=== PATIENT | female | born 1985 | race Caucasian/White ===

== ENCOUNTER 2022-04-08 12:32 | Observation (INO) | payer MEDICAID, SELFPAY ==
[2022-04-08 12:42] VITALS: BP 121/81; PULSE 68; RESP 14; TEMP 37; O2SAT 98
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
[2022-04-08 12:51] VITALS: BP 122/81; PULSE 67; PULSE 70; RESP 13; O2SAT 98
[2022-04-08 13:01] VITALS: BP 111/71; PULSE 58; PULSE 59; RESP 11; O2SAT 96
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
[2022-04-08] MEDS: Normal Saline 1,000 ML 1000 ML IV (13:21)
[2022-04-08 13:35] LABS: Abs Immature Grans 0.02 10^3/uL (0.0-0.06); Absolute Basophil Count 0.04 10^3/uL (0.0-0.2); Absolute Eosinophil Count 0.06 10^3/uL (0.0-0.7); Absolute Lymphocyte Count 1.37 10^3/uL (1.2-3.4); Absolute Monocyte Count 0.57 10^3/uL (0.1-0.8); Absolute Neutrophil Count 7.38 10^3/uL (1.2-6.7); Basophils % 0.4; Eosinophils % 0.6; HCT 41.6 % (36.0-46.0); HGB 13.9 g/dL (11.2-15.7); Immature Grans % 0.2; Lymphocytes % 14.5; MCH 31.1 pg (27.0-33.0); MCHC 33.4 % (32.0-36.0); MCV 93 fL (80-95); Neutrophils % 78.3; Platelet Count 269 10^3/uL (130-400); RBC 4.47 10^6/uL (3.93-5.22); RDW 12.8 % (11.7-14.6); RDW-SD 43.8 fL; WBC 9.44 10^3/uL (4.4-10.8)
[2022-04-08] MEDS: Omnipaque 350 MG/ML 100 ML BTL IV (13:42)
[2022-04-08 13:45] LABS: ALT 20 U/L (14-59); AST 19 U/L (15-37); Albumin 4.2 g/dL (3.4-5.0); Alkaline Phosphatase 65 U/L (46-116); Anion Gap 10.6 mmol/L (3-11); BUN 11 mg/dL (7-18); Bilirubin, Total 0.4 mg/dL (0.2-1.0); CO2 29.4 mmol/L (21.0-32.0); CREATININE 0.8 mg/dL (0.55-1.02); Calcium 9.4 mg/dL (8.5-10.1); Chloride 102 mmol/L (98-107); Glucose 102 mg/dL (74-106); Potassium 3.6 mmol/L (3.5-5.1); Sodium 142 mmol/L (136-145); Total Protein 7.8 g/dL (6.4-8.2)
[2022-04-08 13:52] LABS: Bilirubin Negative (Negative); Blood Trace-lysed (Negative); Clarity Clear (Clear); Glucose Negative (Negative); Ketones Negative (Negative); Leukocyte Esterase Negative (Negative); Nitrite Negative (Negative); Urobilinogen 0.2 EU/dL (Up TO 0.2); pH 5.5 (5-8)
[2022-04-08 14:01] LABS: Lipase 94 U/L (73-393)
[2022-04-08 14:07] LABS: WBC 0-2 HPF (0-5)
[2022-04-08 14:08] LABS: Bacteria Rare HPF (Negative); C & S Indicated? No; Casts Negative LPF (Negative); Crystals Negative HPF (Negative); Epithelial Cells Few HPF (Negative); Mucus Negative (Negative)
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
[2022-04-08 14:31] VITALS: BP 122/83; PULSE 55; PULSE 60; RESP 17; O2SAT 100
[2022-04-08] MEDS: Lidocaine/Epinephri/Tetracaine Topical Gel 3 ML TP (15:06)
[2022-04-08 15:25] LABS: Source Nasal/Nares
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
--- OUTSIDE RECORDS SUMMARY | 2022-04-08 15:59 | XMS_ITS | Encounter Summary ---
:1985 Author Organization [facility] Address [address] [place] [address] Care Team Providers Name Role Phone Jaime Guadarrama Primary Care Provider Reason for Visit (Routine/Next Available) - Receiving Office to Obtain Authorization Specialty Diagnoses / Procedures Referred By Contact Refer red To Contact Procedures Imaging, External CT OUTSIDE IMAGES BODY CT OUTSIDE IMAGES BODY Referral ID Status Reason Start Expiration Visits Visits Date Date Requested Authorized [id number] Receiving Office 04/08/2022 1 1 to Obtain Authorization Encounter Details Date Type Department Care Team Description 04/08/2022 Hospital Encounter [facility] Secondary Arrived [place] Social History Tobacco Use Types Packs/Day Years Used Date Never Smoker Smokeless Tobacco: Never Used Alcohol Use Standard Drinks/Week Comments Yes 3 (1 standard drink = 0.6 oz pure alcoho l) Sex Assigned at Date Recorded Not on file documented as of this encounter Functional Status Functional Status Response Date of Assessment Because of a physical, mental, or emotional condition, No 05/10/2016 does this person have difficulty doing errands alone such as visiting a doctor's office or shopping? Cognitive Status Response Date of Assessment Because of a physical, mental, or emotional condition, No 05/10/2016 does this person have serious difficulty concentrating, remembering, or making decisions? documented as of this encounter Plan of Treatment Not on filedocumented as of this encounter Procedures Procedure Name Priority Date/Time Associated Diagnosis Comme nts CT OUTSIDE IMAGES Routine 04/08/2022 14:59 Result s for this BODY EDT procedure are i n the results section. documented in this encounter Results CT OUTSIDE IMAGES BODY (04/08/2022 14:59 EDT) Specimen Narrative 04/08/2022 14:59 EDT This is a non-reportable exam. documented in this encounter Visit Diagnoses Not on filedocumented in this encounter Care Teams Route Returner Relationship Specialty Start Date End Date Jaime Guadarrama PA PCP - General 11/06/15 [address] [place] [address] documented as of this encounter
--- OUTSIDE RECORDS SUMMARY | 2022-04-08 15:59 | XMS_ITS | Encounter Summary ---
:1985 Author Organization [facility] Address [address] [place] [address] Care Team Providers Name Role Phone Jaime Guadarrama Primary Care Provider Encounter Details Date Type Department Care Team Description 11/27/2021 Lab Requisition [facility] Zhanna Lundberg, Encounter for Pathology & CNM screening for Laboratory Medicine [address] infect ons with a - [address] predominantly sexual [address] [facility] [address] [place] [phone] Social History Tobacco Use Types Packs/Day Years [...] making decisions? documented as of this encounter Discharge Disposition Disposition Code Departure Means Destination Home or Self Care documented in this encounter Plan of Treatment Not on filedocumented as of this encounter Procedures Procedure Name Priority Date/Time Associated Diagnosis Comme nts CHLAMYDIA/N. Routine 11/27/2021 18:12 Encounter for Results fo r this GONORRHOEAE EST screening for procedure are in AMPLIFIED RNA infections with a the resul ts predominantly sexual section . mode of transmission documented in this encounter Results CHLAMYDIA/N. GONORRHOEAE AMPLIFIED RNA (11/27/2021 18:12 EST) Pathologist Sig nature Gonococcus Result Negative Negative [facility] Chlamydia Result Negative Negative [facility] Specimen Swab - Entire vagina (body structure) Performing Organization Address City/State/ZIP Code Phon e Number [facility] [address] [place] [address] SERVICES documented in this encounter Visit Diagnoses Diagnosis Encounter for screening for infections w ith a predominantly sexual mode of transmission documented in this encounter Care Teams Key Entry Operator Relationship Specialty Start Date End Date Jaime Guadarrama PA PCP - General 11/06/15 [address] [place], [place] [id number] documented as of this encounter
--- OUTSIDE RECORDS SUMMARY | 2022-04-08 16:00 | XMS_ITS | Encounter Summary ---
:1985 Author Organization [facility] Address [address] [place] [address] Care Team Providers Name Role Phone Jaime Guadarrama Primary Care Provider Encounter Details Date Type Department Care Team Description 12/08/2018 Hospital Encounter [facility]ie maya, [place], [place] [address] [address] [address] ,[place] [address] [address] [place] [address] Social History Tobacco Use Types Packs/Day Years [...] decisions? documented as of this encounter Discharge Diagnoses Diagnosis Z00.00 Encounter for general adult medic al examination without abnormal findings-Z00.00[ICD-10-CM] Z77.120 Contact with and (suspected) exp osure to mold (toxic)-Z77.120[ICD-10-CM] R53.83 Other fatigue-R53.83[ICD-10-CM] documented in this encounter Medications at Time of Discharge Medication Sig Dispensed Refills Start Date End Date Multivitamins with Take 1 Tab by mouth 0 Minerals Tab daily. Reported on 09/19/2016 norgestimate-ethinyl Take 1 Tab by mouth 0 estradiol (ORTHO daily. TRI-CYCLEN, TRI-SPRINTEC) 0.18/0.215/0.25 mg-35 mcg (28) tablet albendazole (ALBENZA) 200 Take 2 Tabs by mouth 4 Tab 0 11/11/2015 08/30/2019 mg tablet once for 1 dose. Repeat in 2 weeks documented as of this encounter Discharge Disposition Disposition Code Departure Means Destination Home or Self Senior Care documented in this encounter Plan of Treatment Not on filedocumented as of this encounter Procedures Procedure Name Priority Date/Time Associated Comments Diagnosis VITAMIN D (25,[place]) Routine 12/08/2018 10:56 Result s for this EDT procedure are i n the results section. IBC Routine 12/08/2018 10:56 Results for this EDT procedure are i n the results section. SED RATE Routine 12/08/2018 10:56 Results for this EDT procedure are i n the results section. COMPLETE BLOOD COUNT Routine 12/08/2018 10:56 Res ults for this AND DIFFERENTIAL EDT procedure a re in the results section. HIGH SENSITIVITY Routine 12/08/2018 10:56 Results for this C-REACTIVE PROTEIN EDT procedure are in (CARDIOVASCULAR the results DISEASE) section. T3 FREE Routine 12/08/2018 10:56 Results for this EDT procedure are i n the results section. TSH Routine 12/08/2018 10:56 Results for this EDT procedure are i n the results section. T4 FREE Routine 12/08/2018 10:56 Results for this EDT procedure are i n the results section. IRON Routine 12/08/2018 10:56 Results for this EDT procedure are i n the results section. FOLATE Routine 12/08/2018 10:56 Results for this EDT procedure are i n the results section. FERRITIN Routine 12/08/2018 10:56 Results for this EDT procedure are i n the results section. VITAMIN B12 Routine 12/08/2018 10:56 Results for this EDT procedure are i n the results section. COMPREHENSIVE Routine 12/08/2018 10:56 Results fo r this METABOLIC PANEL (CMP) EDT proced ure are in the results section. documented in this encounter Results (ABNORMAL) VITAMIN D (25,OH) (12/08/2018 10:56 EDT) 25OH Vitamin D 19.0 (L) 30 - 100 [facility] Comment: ng/ml [facility] Reference Range: SERVICES Deficient = <10 ng/ml Insufficient = 10-30 ng/ml Sufficient = 30-100 ng/ml Toxic = >100 ng/ml Specimen Blood Performing Organization Address City/[facility]/ZIP Code Phon e Number [facility] [address] [place] [address] SERVICES TSH (12/08/2018 10:56 EDT) TSH 1.84 0.47 - 4.68 [facility] Comment: uIU/ml LABORATORY SERVICES The results of this assay can be falsely lowered due to the consumption of Biotin. Specimen Blood Performing Organization Address [facility]/ZIP Code Phon e Number [facility] [address] [place] [address] SERVICES SED. RATE:WESTERGREN (12/08/2018 10:56 EDT) Pathologist Sig nature Sed. Rate Westergren 13 0 - 20 mm/hr [facility] SERVICES Specimen Blood Performing Organization Address City/[facility]/ZIP Code Phon e Number [facility] [address] [place] [address] SERVICES IRON (12/08/2018 10:56 EDT) Pathologist Sig nature Iron 118 37 - 170 ug/dl [facility] Specimen Blood Performing Organization Address [facility]/ZIP [facility] Phon e Number [facility] [address] [place] [address] SERVICES IBC (12/08/2018 10:56 EDT) Pathologist Sig nature TIBC 421 265 - 497 ug/dl [facility] T[facility] SERVICES Specimen Blood Performing Organization Address City/[facility]/ZIP Code Phon e Number [facility] [address] [place] [address] SERVICES (ABNORMAL) T4 FREE (12/08/2018 10:56 EDT) Pathologist Sig nature T4, Free 0.7 (L) 0.8 - 2.2 ng/dl [facility] T[facility] SERVICES Specimen Blood Performing Organization Address City/[facility]/ZIP Code Phon e Number [facility] [address] [place] [address] SERVICES T3 FREE (12/08/2018 10:56 EDT) Pathologist Sig nature T3, Free 3.1 2.8 - 5.3 pg/ml [facility] Specimen Blood Performing Organization Address City/[facility]/ZIP Code Phon e Number [facility] [address] [place] [address] SERVICES FOLATE (12/08/2018 10:56 EDT) Pathologist Sig nature Folate 17.1 ng/ml [facility] Comment: LABORATORY SERVICES Deficient: ??Less than 3.4 ng/mL Indeterminate: ??3.4-5.4 ng/mL Normal: ??Greater than 5.4 ng/mL The results of this assay can be falsely elevated due to the consumption of Biotin. Specimen Blood Performing Organization Address City/[facility]/ZIP Code Phon e Number [facility] [address] [place] [address] SERVICES (ABNORMAL) FERRITIN (12/08/2018 10:56 EDT) Pathologist Sig nature Ferritin 9 (L) 10 - 291 ng/ml [facility] Specimen Blood Performing Organization Address City/[facility]/ZIP Code Phon e Number [facility] [address] [place] [address] SERVICES HIGH SENSITIVITY C-REACTIVE PROTEIN (CARDIOVASCULAR DISEASE) (12/08/2018 10:56 EDT) High Sensitivity 3.39 mg/L [facility] CRP Comment: LABORATORY SERVICES Low Risk: <1.0 mg/L Average Risk: 1.0-3.0 mg/L High Risk: >3.0 mg/L Indeterminate*: >10.0 mg/L *May be an indication of another source of inflammation or infection [employer] 5600 Methodology in use 01/29/2018 Specimen Blood Performing Organization Address City/[facility]/ZIP Code Phon e Number [facility] [address] [place] [address] SERVICES COMPREHENSIVE METABOLIC PANEL (CMP) (12/08/2018 10:56 EDT) Potassium 4.7 3.5 - 5.0 [facility] mEq/L [facility] Sodium 136 136 - 145 [facility] mEq/L [facility] Chloride 98 96 - 110 [facility] mEq/L [facility] CO2 31 22 - 32 mEq/L [facility] SERVICES Total Alkaline 67 38 - 126 U/L [facility] Phosphatase [facility] Bilirubin, Total <0.5 <1.4 mg/dl [facility] SERVICES AST 27 15 - 46 U/L [facility] SERVICES ALT 26 <53 U/L [facility] SERVICES Albumin 4.2 3.4 - 4.9 [facility] g/dl [facility] Total Protein 6.9 6.3 - 8.2 [facility] g/dl [facility] Creatinine 0.83 0.52 - 1.04 [facility] mg/dl [facility] GFR, Calculated 94 >60 [facility] Comment: ml/min/1.73m2 [facility] eGFR calculated using CKD-EPI equation for SERVICES non Americans. Multiply eGFR by 1.16 for Americans. BUN 10 10 - 26 mg/dl [facility] SERVICES Calcium 9.6 8.5 - 10.5 [facility] mg/dl [facility] Calculated Calcium 9.4 8.5 - 10.5 [facility] mg/dl [facility] Glucose, Serum 83 70 - 100 [facility] mg/dl [facility] Fasting? YES [facility] Specimen Blood Performing Organization Address City/State/ZIP Code Phon e Number [facility] [address] [place] [address] SERVICES COMPLETE BLOOD COUNT AND DIFFERENTIAL (12/08/2018 10:56 EDT) Pathologist Sig nature WBC 7.89 4.0 - 12.4 [facility] LABORATORY SERVICES RBC 4.22 3.86 - 5.04 [facility] M/[facility] LABORATORY SERVICES Hemoglobin 12.3 11.6 - 15.2 [facility] gm/dl LABORATORY SERVICES HCT 36.7 34.9 - 44.4 % [facility] SERVICES MCV 87 81 - 98 fl [facility] SERVICES MCH 29.1 26.7 - 33.3 pg [facility] SERVICES MCHC 33.5 32.1 - 35.9 [facility] gm/dl LABORATORY SERVICES RDW-CV 13.2 <14.7 % [facility] SERVICES RDW-SD 41.7 <50.4 fl [facility] SERVICES PLT 263 141 - 377 /[facility] LABORATORY SERVICES MPV 9.8 9.5 - 12.7 fl [facility] SERVICES Neutrophils 67.9 % [facility] Lymphocytes 21.2 % [facility] Monocytes 9.1 % [facility] SERVICES Eosinophils 0.9 % [facility] Basophils 0.4 % [facility] SERVICES Immature Grans 0.5 % [facility] SERVICES ABS Neutrophils 5.36 2.20 - 8.85 [facility] K/[facility] LABORATORY SERVICES ABS Lymphs 1.67 1.09 - 3.30 [facility] LABORATORY SERVICES ABS Monocytes 0.72 0.1 - 0.8 K/[facility] LABORATORY SERVICES ABS Eosinophils 0.07 0.03 - 0.61 [facility] ABS Basophils 0.03 0.01 - 0.11 [facility] LABORATORY SERVICES ABS Immature Grans 0.04 0 - 0.06 /[facility] LABORATORY SERVICES Type of Diff: Automated [facility] SERVICES Specimen Blood Performing Organization Address City/[facility]/ZIP Code Phon e Number [facility] [address] [place] [address] SERVICES VITAMIN B12 (12/08/2018 10:56 EDT) Pathologist Sig nature Vitamin B-12 340 211 - 911 pg/ml [facility] SERVICES Specimen Blood Performing Organization Address City/[facility] Phon e Number [facility] [address] [place] [address] SERVICES documented in this encounter Visit Diagnoses Not on filedocumented in this encounter Care Teams Industrial Machine System Technician Relationship Specialty Start Date End Date Jaime Guadarrama PA PCP - General 11/06/15 [address] [place] [address] documented as of this encounter
--- OUTSIDE RECORDS SUMMARY | 2022-04-08 16:00 | XMS_ITS | Encounter Summary ---
:1985 Author Organization [facility] Address [address] [place] [address] Care Team Providers Name Role Phone Jaime Guadarrama Primary Care Provider Reason for Visit Reason Comments Eye Problem Visual field defect. Patient here today for MRI review. 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 No eye p ain, floaters. Frequent flashing for a couple of days. Encounter Details Date Type Department Care Team Description 12/05/2015 Office Visit [facility] Will Hall MD Ophthalmology - [address], [address], [address] [place], [place] [address] [place] [address] [phone] (Wo rk) Social History Tobacco Use Types Packs/Day Years Used Date Never Smoker Smokeless Tobacco: Never Used Alcohol Use Standard Drinks/Week Comments Yes 3 (1 standard drink = 0.6 oz pure alcoho l) Sex Assigned at Date Recorded Not on file documented as of this encounter Functional Status Functional Status Response Date of Assessment Because of a physical, mental, or emotional condition, No 11/16/2015 does this person have difficulty doing errands alone such as visiting a doctor's office or shopping? Cognitive Status Response Date of Assessment Because of a physical, mental, or emotional condition, No 11/16/2015 does this person have serious difficulty concentrating, remembering, or making decisions? documented as of this encounter Discharge Diagnoses Diagnosis H53.40 Unspecified visual field defects- H53.40[ICD-10-CM] H46.9 Unspecified optic neuritis-H46.9[I CD-10-CM] H53.19 Other subjective visual disturban deisy-H53.19[ICD-10-CM] documented in this encounter Progress Notes Will Hall MD - 12/05/2015 0811 EST . Base Eye Exam Visual Acuity (Snellen - Linear) Right Left Dist cc 20/20 20/20 Correction: Glasses Neuro/Psych Oriented x3: Yes Mood/Affect: Normal ROS, Medications, Allergies reviewed. This note has been dictated and scanned. IMP: Rylie was seen today for eye problem. Diagnoses and all orders for this visit: Visual field defect Orders: - Visual Evoked Potential; Standing - Electroretinogram (ERG); Standing Optic neuritis Photopsia Orders: - Visual Evoked Potential; Standing - Electroretinogram (ERG); Standing MRI reivew: Brain and Orbits Impression: Normal orbits. MRI Brain: 1. No intracranial abnormality identified. 2. Moderate left maxillary sinus mucosal thickening PLAN: See dictated note and notes in scans/media also. See shadow chart for hard copies of VF's and OCT's. I am scribing for Will Hall MD while he is personally performing the service. PRANEETH Kinney 12/05/2015 8:39 documented in this encounter Consult Notes Will Hall MD - 12/05/2015 1028 EST [facility] OPHTHAL[facility]OLOGY CONS[facility]ATION - 12/05/2015 [place] [address] Guadarrama: Our mutual patient returns today for review of her MRI scan. As you are well aware, she has had somephotopsias in the left eye and decreased vision. She has been investigated rather thoroughly with laboratory studies. Some of those were marginally borderline, but I do not think they explain her problem. Just for the record, the sedimentation rate was 22 and the C-reactive protein was just slightly elevated as well at 14.9 with normal being 0 to 10. Finally, the ARABELLA titer was 40. I do not believe any of these laboratory studies explain the photopsias that she is having currently. She had an MRI of the brain and orbits with MS protocol. There were no enhancing lesions or inflammation of the optic nerve or the brain identified. Again, there was an incidental finding of some sinusitis on the left. Moderate left maxillary sinus mucosal thickening. I have recommended that we go ahead and carry out an ERG and a visual evoked potential test. That will be scheduled and we will do that in the reasonably near future, depending on the electrodiagnosticlabs schedule. It is interesting that the patient's vision with her glasses today was actually quite good at 20/20 in each eye. I will see her once all these studies have been completed. Dr Gillespie, I will discuss the patient with you. One of my questions is does she have a big blind spot syndrome or MEWS without white dots. Hopefully, the electrodiagnostic tests will help us sort that out. Fortunately, things have not progressed in any way and her vision is excellent today. Sincerely, Will Hall MD 08 39 AM - Will Hall MD mn Dictation ID: [id number] cc: Jaime DUENAS, [place] [address] Humphrey Donahue MD,PHD, [facility] [address] [place] [address] Kamari Gillespie MD, [facility] - Ophthalmology [address] [place] [address] The Patient documented in this encounter Plan of Treatment Not on filedocumented as of this encounter Visit Diagnoses Diagnosis Visual field defect - Primary Visual field defect, unspecified Optic neuritis Optic neuritis, unspecified Photopsia Other visual distortions and entoptic ph enomena documented in this encounter Eye Exam Visual Acuity (Snellen - Linear) Right eye Left eye Dist cc 20/20 20/20 Correction: Glasses Neuro/Psych Oriented x3: Yes Mood/Affect: Normal Care Teams Die Repair Machinist Relationship Specialty Start Date End Date Jaime Guadarrama PA PCP - General 11/06/15 [address] [place] [address] documented as of this encounter
--- OUTSIDE RECORDS SUMMARY | 2022-04-08 16:00 | XMS_ITS | Encounter Summary ---
:1985 Author Organization [facility] Address [address] [place] [address] Care Team Providers Name Role Phone Jaime Guadarrama Primary Care Provider Reason for Visit Reason Comments Eye Problem left eye 3 days--constant gl ow in middle of eye , vision fine-- Ultra sound saw hem--Pain no-- Sta rted saturday am and more constant-- Floaters no and did a couple of Flash es -- Not DM Encounter Details Date Type Department Care Team Description 11/07/2015 Office Visit [facility] Oniel Peralta Ophthalmology - Avila Clifton MD [id number] [place] [address], [place] [address] (Wo rk) Social History Tobacco Use [...] a physical, mental, or emotional condition, No 11/07/2015 does this person have difficulty doing errands alone such as visiting a doctor's office or shopping? Cognitive Status Response Date of Assessment Because of a physical, mental, or emotional condition, No 11/07/2015 does this person have serious difficulty concentrating, remembering, or making decisions? documented as of this encounter Discharge Diagnoses Diagnosis H53.19 Other subjective visual disturban deisy-H53.19[ICD-10-CM] documented in this encounter Discharge Disposition Disposition Code Departure Means Destination Auto Discharge documented in this encounter Progress Notes Oniel Peralta MD - 11/07/2015 0851 EST Department of Ophthalmology / Cataract/Cornea Office Visit Note Referring physician: Sherley Stoll Local Eye Patient Coordinator Front Desk: Family Physician (PCP): Jaime Guadarrama Other Physician: History of Present Illness: This HPI section must be documented by the physician (or scribe upon the dictation of the physician). It should not be documented independently by the plasma processing technician/scribe in the absence of the physician. Patient presents with ??? Eye Problem C/o new-onset photopsia left eye X 3 days, which was evaluated in the emergency department yesterday. She notes a constant glow centrally with her left eye, with no floaters and normal vision.Started saturday am and more constant subsequently. Ultrasound done in the ED reported was seen to show a possible vitreous hemorrhage. No pain. Not diabetic, no head trauma. She is not a high myope. She has had normal dilated eye exams previously - last exam about two years ago. She had mild headache Saturday, which she attributed to an effect of having a glass of wine the previous day. Pain: 0 / 10 Both Eyes Flashes: Yes Floaters: No Controls: Diabetes :No Hypertension:No Tobacco:No EXAMINATION: Base Eye Exam Visual Acuity (Snellen - Linear) Right Left Dist sc 20/40 20/30 Dist ph sc 20/20-2 20/20 Near sc J1+ J1+ Glasses at home Tonometry (Applanation, 8:29) Right Left Pressure 13 17 Pupils Dark Light React APD Right 5 3 Brisk None Left 5 3 Brisk None Visual Deshpande Right Left Result Full Full Normal, SP Extraocular Movement Right Left Result Full, Ortho Full, Ortho Normal, SP Neuro/Psych Oriented x3: Yes Mood/Affect: Normal Dilation Both eyes: 1.0% Mydriacyl, 2.5% Phenylephrine @ 8:33 Slit Lamp and Fundus Exam Slit Lamp Exam Right Left Lids/Lashes Normal Normal Conjunctiva/Sclera White and quiet White and quiet Cornea Clear Clear Anterior Chamber Deep and quiet Deep and quiet Iris normal normal Lens Clear Clear Vitreous Normal Normal Fundus Exam Right Left Disc flat ONH, normal coloration, discrete borders with spontaneous venous pulsations flat ONH, normal coloration, discrete borders with spontaneous venous pulsations C/D Ratio 0.2 0.3 Macula Normal Normal Periphery Normal Normal Refraction Wearing Rx Type: did not bring OPHTHALMOLOGY TESTING: [To insert test results, first enter the results in Doc Flowsheet and then use dot phrase .OPHTESTEXAM to choose the results module(s) to pull into this note] Normal macular OCT and poor reliability of nerve fiber layer OCT IMPRESSION / PLAN: Encounter Diagnosis Name Primary? Photopsia Yes -I see no evidence of retinal tears, and think that ocular migraine would be an unlikely cause of photopsia persisting for three days. Vitreous syneresis is possible, but would be uncommon to see in a young patient who is not a high myope. Photopsia would be an unusual manifestation of optic neuritis. Plan: Advised her to call us if photopsia persists for another week - could consider retinal or neuro-ophthalmology consult if it persists. Advised her to call with worsening of photopsia or change in floaters, vision or visual deshpande. Scribe Attestation: I am scribing for Oniel Peralta MD while he is personally performing the service. Tylor Scott (Scribe) Time spent: documented in this encounter Plan of Treatment Not on filedocumented as of this encounter Visit Diagnoses Diagnosis Photopsia - Primary Other visual distortions and entoptic ph enomena documented in this encounter Eye Exam Visual Acuity (Snellen - Linear) Right eye Left eye Dist sc 20/40 20/30 Dist ph pa 20/20-2 20/20 Near pa J1+ J1+ Glasses at home Tonometry (Applanation, 8:29) Right eye Left eye Pressure 13 17 Pupils Dark Light React APD Right eye 5 3 Brisk None Left eye 5 3 Brisk None Visual Deshpande Right eye Left eye Full Full Normal, SP Extraocular Movement Right eye Left eye Full, Ortho Full, Ortho Normal, SP Neuro/Psych Oriented x3: Yes Mood/Affect: Normal Dilation Both eyes: 1.0% Mydriacyl, 2.5% Phenylep hrine @ 8:33 Slit Lamp Exam Right eye Left eye Lids/Lashes Normal Normal Conjunctiva/Sclera White and quiet White and quiet Cornea Clear Clear Anterior Chamber Deep and quiet Deep and quiet Iris normal normal Lens Clear Clear Vitreous Normal Normal Fundus Exam Right eye Left eye Disc flat ONH, normal coloration, discrete fl at ONH, normal coloration, discrete borders with spontaneous venous borders with spontaneous venous pulsations pulsations C/D Ratio 0.2 0.3 Macula Normal Normal Periphery Normal Normal Wearing Rx Type: did not bring Care Teams Nuclear Radiologist Relationship Specialty Start Date End Date Jaime Guadarrama PA PCP - General 11/06/[address] [place] [id number] documented as of this encounter
--- OUTSIDE RECORDS SUMMARY | 2022-04-08 16:00 | XMS_ITS | Encounter Summary ---
:1985 Author Organization [facility] Address [address] [place] [address] Care Team Providers Name Role Phone Jaime Guadarrama Primary Care Provider Encounter Details Date Type Department Care Team Description 12/08/2018 Phlebotomy Only [facility], [facility] [address] [place] [address] Social History Tobacco Use Types Packs/Day Years [...] filedocumented as of this encounter Visit Diagnoses Not on filedocumented in this encounter Care Teams City Dispatcher Relationship Specialty Start Date End Date Jaime Guadarrama PA PCP - General 11/06/15 [address] [place], [place] [address] documented as of this encounter
--- OUTSIDE RECORDS SUMMARY | 2022-04-08 16:00 | XMS_ITS | Encounter Summary ---
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 Angelina t episode of major depressive disorder without prior episode, unspecified depression episode severity; Phlebotomy Phlebotomy Chronic fatigue, unspecified [address] [place] [address] Social History Tobacco Use Types Packs/Day Years Used Date Never Smoker Smokeless Tobacco: Never Used Alcohol Use Standard Drinks/Week Comments Yes 3 (1 standard drink = 0.6 oz pure alcoho l) Sex Assigned at Date Recorded Not on file COVID-19 Exposure Response Date Recorded In the last month, have you been in contact with No / Unsure 05/17/2021 16:12 EDT someone who was confirmed or suspected to have Coronavirus / COVID-19? documented as of this encounter Functional Status [...] Name Priority Date/Time Associated Diagnosis Comme nts VITAMIN D (25,OH) Routine 05/17/2021 16:24 Current episode of Results for this EDT major depressive procedure a re in disorder without the results prior episode, section. unspecified depression episode severity Chronic fatigue, unspecified COMPLETE BLOOD Routine 05/17/2021 16:24 Current episode of Res ults for this COUNT EDT major depressive procedure a re in disorder without the results prior episode, section. unspecified depression episode severity Chronic fatigue, unspecified TSH Routine 05/17/2021 16:24 Current episode of Resul ts for this EDT major depressive procedure a re in disorder without the results prior episode, section. unspecified depression episode severity Chronic fatigue, unspecified T4 FREE Routine 05/17/2021 16:24 Current episode of Resul ts for this EDT major depressive procedure a re in disorder without the results prior episode, section. unspecified depression episode severity Chronic fatigue, unspecified VITAMIN B12 Routine 05/17/2021 16:24 Current episode of Resul ts for this EDT major depressive procedure a re in disorder without the results prior episode, section. unspecified depression episode severity Chronic fatigue, unspecified documented in this encounter Results VITAMIN D (25,OH) (05/17/2021 16:24 EDT) 25OH Vitamin D 33.2 30.0 - 100.0 [facility] Comment: ng/mL [facility] Vitamin D 25,OH Interpretive Ranges: SERV ICES Deficiency: ??<10.0 ng/mL Insufficiency: ??10.0 - 30.0 ng/mL Sufficiency: ??30.0 - 100.0 ng/mL Toxicity: ??>100.0 ng/mL Specimen Blood - Venous blood (substance) Performing Organization Address City/State/ZIP Code Phon e Number [facility] [address] [place] [address] SERVICES VITAMIN B12 (05/17/2021 16:24 EDT) Pathologist Sig nature Vitamin B12 489 211 - 911 pg/mL [facility] [place] SERVICES Specimen Blood - Venous blood (substance) Performing Organization Address City/[facility]/ZIP Code Phon e Number [facility] [address] [place] [address] SERVICES T4 FREE (05/17/2021 16:24 EDT) Pathologist Sig nature T4, Free 0.9 0.8 - 2.2 ng/dL [facility] T[facility] SERVICES Specimen Blood - Venous blood (substance) Performing Organization Address City/State/ZIP Code Phon e Number [facility] [address] [place] [address] SERVICES TSH (05/17/2021 16:24 EDT) Pathologist Sig nature TSH 1.25 0.47 - 4.68 uIU/mL [facility] SERVICES Specimen Blood - Venous blood (substance) Narrative [facility] SERVICES - 05/17/2021 17:37 EDT The results of this assay can be falsely lowered due to the consumption of Biotin. Performing Organization Address City/[facility] Code Phon e Number [facility] [address] [place] [address] SERVICES COMPLETE BLOOD COUNT (05/17/2021 16:24 EDT) Pathologist Sig nature WBC 8.42 4.00 - 12.40 K/cmm [facility] SERVICES RBC 4.08 3.86 - 5.04 M/cmm [facility] SERVICES Hemoglobin 11.9 11.6 - 15.2 gm/dL [facility] SERVICES HCT 36.4 34.9 - 44.4 % [facility] SERVICES MCV 89 81 - 98 fl [facility] SERVICES MCH 29.2 26.7 - 33.3 pg [facility] SERVICES MCHC 32.7 32.1 - 35.9 gm/dL [facility] SERVICES RDW-CV 13.4 <14.7 % [facility] SERVICES RDW-SD 43.9 <50.4 fl [facility] SERVICES PLT 264 141 - 377 K/cmm [facility] SERVICES MPV 9.6 9.5 - 12.7 fl [facility] SERVICES Specimen Blood - Venous blood (substance) Performing Organization Address City/[facility] Code Phon e Number [facility] [address] [place] [address] SERVICES documented in this encounter Visit Diagnoses Diagnosis Current episode of major depressive diso rder without prior episode, unspecified depression episode severity Chronic fatigue, unspecified documented in this encounter Care Teams Facilities Engineering Manager Relationship Specialty Start Date End Date Jaime Guadarrama PA PCP - General 11/06/15 [address] [place] [address] (work) documented as of this encounter
--- OUTSIDE RECORDS SUMMARY | 2022-04-08 16:00 | XMS_ITS | Encounter Summary ---
:1985 Author Organization [facility] Address [address] [place] [address] Care Team Providers Name Role Phone Jaime Guadarrama Primary Care Provider Encounter Details Date Type Department Care Team Description 11/22/2016 Results Only [facility] PRISM Lv Danielle Vogt, [facility] [phone] [address] [place] [address] (Wo rk) Social History Tobacco Use Types [...] Procedure Name Priority Date/Time Associated Comments Diagnosis ORGANISM IDENTIFICATION Routine 11/22/2016 13:15 Results for this AND SUSCEPTIBILITY EST procedure are in the results section. documented in this encounter Results ORGANISM IDENTIFICATION AND SUSCEPTIBILITY (11/22/2016 13:15 EST) Pathologist Sig nature Result ESCHERICHIA [facility] SERVICES Specimen Urine Organism Antibiotic Method Susceptibility Escherichia coli Ampicillin SUSCEPTIBILITY (YANCI) <=2: Susce ptible Escherichia coli Gentamicin SUSCEPTIBILITY (YANCI) <=1: Susce ptible Escherichia coli Trimethoprim-Sulfamethox SUSCEPTIBILITY (YANCI) < =20: Susceptible azole Escherichia coli Nitrofurantoin SUSCEPTIBILITY (YANCI) <=16: Susc eptible Escherichia coli Tobramycin SUSCEPTIBILITY (YANCI) <=1: Susce ptible Escherichia coli Ceftriaxone SUSCEPTIBILITY (YANCI) <=1: Susce ptible Escherichia coli Ciprofloxacin SUSCEPTIBILITY (YANCI) <=0.25: Birch sceptible Escherichia coli Piperacillin Tazobactam SUSCEPTIBILITY (YANCI) <= 4: Susceptible Escherichia coli Meropenem SUSCEPTIBILITY (YANCI) <=0.25: Birch sceptible Escherichia coli Ertapenem SUSCEPTIBILITY (YANCI) <=0.5: Lu ceptible Escherichia coli Cefazolin SUSCEPTIBILITY (YANCI) <=4: Susce ptible Escherichia coli Cefazolin SUSCEPTIBILITY (YANCI) Cefazolin susceptibility r esults can be used to p redict susceptibility r esults for the following oral cephalosporins w hen used for therapy of uncomplicated UT Is due to E.coli, K.pneumoniae, an d P.mirabilis: cefaclor, cefdin ir, cefpodoxime, cef prozil, cefuroxime , cephalexin, karthik carbef. Cefdinir, cefpod oxime, and cefuroxime m ay be tested individua lly because some iso lates may be susceptible to t hese agents while uzma ting resistant to cef azolin. Please note that only cefpodoxime and cephalexin are o n the [facility] inpatient formulary. Performing Organization Address City/State/ZIP Code Phon e Number [facility] [address] [place] [address] SERVICES documented in this encounter Visit Diagnoses Not on filedocumented in this encounter Care Teams Precision Layout Worker Relationship Specialty Start Date End Date Jaime Guadarrama PA PCP - General 11/06/15 [address] [place], [place] [id number] documented as of this encounter
--- OUTSIDE RECORDS SUMMARY | 2022-04-08 16:00 | XMS_ITS | Encounter Summary ---
:1985 Author Organization [facility] Address [address] [place] [address] Care Team Providers Name Role Phone Jaime Guadarrama Primary Care Provider Encounter Details Date Type Department Care Team Description 05/01/2018 Results Only [facility]- PRISM Jaime Guadarrama PA [phone] [address] [place], [place] [address] (Wo rk) Social History Tobacco Use Types [...] Procedure Name Priority Date/Time Associated Comments Diagnosis SYPHILIS SEROLOGY Routine 05/01/2018 16:10 Result s for this EDT procedure are i n the results section. CHLAMYDIA/N. Routine 05/01/2018 15:59 Results for this GONORRHOEAE AMPLIFIED EDT proced ure are in RNA, THINPREP the results section. PAP TEST- RESULT ONLY Routine 05/01/2018 0:00 Res ults for this EDT procedure are i n the results section. documented in this encounter Results SYPHILIS SEROLOGY (05/01/2018 16:10 EDT) Syphilis Serology NegativeComment: [facility] Reference Range: LABORATORY SERVICES Negative Specimen Blood Performing Organization Address City/[facility]/ZIP Code Phon e Number [facility] [address] [place] [address] SERVICES CHLAMYDIA/N. GONORRHOEAE AMPLIFIED RNA, THINPREP (05/01/2018 15:59 EDT) Pathologist Sig nature Chlamydia Result Negative [facility] SERVICES GC Result Negative [facility] SERVICES Specimen Cervix, Thin Prep Vial Performing Organization Address City/[facility]/ZIP Code Phon e Number [facility] [address] [place] [phone] SERVICES PAP TEST- RESULT ONLY (05/01/2018 0:00 EDT) Pathology Report: CYTOPATHOLOGY REPORT [facility] Reports generated via electronic interface contain jana ginal data; SERVICES however they are lacking the format of the original re port. Caution should be taken when reading/interpreting unfo rmatted reports. Name: ? HARRISON STEVE ? Accession #: ? [id number] ? : ? 1985 (Age: 5 0) ??F ?Collect Date: ? 2017 ? Location: ? [facility] ? Receive Date: ? 8 ? Provider: JAIME DUENAS Copy to: ? Final Report SPECIMEN ADEQUACY ? Satisfactory for Evaluation - transformation zone component present GENERAL CATEGORIZATION ? Negative for Intraepithelial Lesion or Malignan cy ?? Last Menstrual Period: 04/07/18 Hormonal/Contraceptive status: Yes Other: Additional clinical information: Z01.419 No previous Treatment/Previous Neg Pap(s) Specimen/Source: ??Pap Test, Cervix, ThinPrep Imaging System with manual evaluation Document reviewed and electronically signed by: ? Whitney Aquino, CT(ASCP)(IAC) ? Report ??Date: 05/16/2018 14:33 HPV with Pap Test ? Date Ordered: ? 05/16/2018 ? Status: ?? Signed Out ?Date Complete: ? 05/19/2018 ? By: ??Sy stem Interface ? Date Reported: ? 05/19/2018 ? Interpretation RESULT: Negative for HPV. No E6 or E7 mRNA is detected from HPV types 16,18,31,3 3,35, 39,45,51,52,56,58,59,66, and 68 by water resources engineer media ge amplification. Comments Document reviewed and electronically signed by: ? System Interface ? Report date: 05/19/2018 By the signature above, the attending physician certif ies that he/she has personally conducted a gross and/or microscopic examin ation of the described specimens and rendered or confirmed the above diagnosi s. End of Report Specimen Performing Organization Address City/State/ZIP Code Phon e Number [facility] [address] [place] [address] SERVICES documented in this encounter Visit Diagnoses Not on filedocumented in this encounter Care Teams Watch Electrician Relationship Specialty Start Date End Date Jaime Guadarrama PA PCP - General 11/06/15 [address] [place] [address] documented as of this encounter
--- OUTSIDE RECORDS SUMMARY | 2022-04-08 16:00 | XMS_ITS | Encounter Summary ---
:1985 Author Organization [facility] Address [address] [place] [address] Care Team Providers Name Role Phone Jaime Guadarrama Primary Care Provider Reason for Visit Reason Comments Eye Problem referral from [facility], seen t here earlier today: intermittent flashing, temporally right eye, since yesterday. No floaters, vision stable Encounter Details Date Type Department Care Team Description 03/05/2016 Office Visit [facility] Pedro Gillespie MD Ophthalmology - [address], [address], [facility] [address] [place], [place] [address] [place] [address] [phone] (Wo rk) Social History Tobacco Use [...] making decisions? documented as of this encounter Progress Notes Elsa Milligan OTA - 03/05/2016 1605 EDT Chief Complaint Patient presents with ??? Eye Problem referral from [facility], seen there earlier today: intermittent flashing, temporally right eye, since yesterday. No floaters, vision stable HPI Location: Right eye Pain: 0 - No pain Quality: (Flashes) Severity: Mild Duration: Days Timing: Intermittent Lasts: Continuous Context: New flashes lasting 1-2 secons temporally Right eye x yesterday morning. Modifying factors: glasses Associated Signs & Symptoms: New flashes Right eye, no floaters, no curtain, vision stable Visual Fluctuations: Flashes Attestation: Blood pressure: A1c: Base Eye Exam Visual Acuity (Snellen - Linear) Right Left Dist sc 20/25 20/40 Dist ph sc 20/25 Tonometry (Applanation, 15:15) Right Left Pressure 14 17 Pupils Pharm dilated from [facility] exam Slit Lamp and Fundus Exam External Exam Right Left External Normal Slit Lamp Exam Right Left Lids/Lashes Normal Normal Conjunctiva/Sclera White and quiet White and quiet Cornea Clear Clear Anterior Chamber Deep and quiet Deep and quiet Iris pharm dilated pharm dilated Lens Clear Clear Impression: 1. Acute idiopathic blind spot enlargement syndrome 2. Photopsia Assessment and Plan/Summary Big blind spot syndrome Stable Observe Photopsia No holes,tears or detachments Observe Follow up 2 months I, Dr. Gillespie, have performed my own HPI and reviewed the tech's ROS. I have also reviewed the patient's past medical, family, social and surgical history, as well as the patient's medications, allergies, and problem list. I am scribing for Dr. Kamari Gillespie MD, while he is personally performing the service. IVON Louis (Scribe) documented in this encounter Plan of Treatment Not on filedocumented as of this encounter Visit Diagnoses Diagnosis Acute idiopathic blind spot enlargement syndrome - Primary Photopsia Other visual distortions and entoptic ph enomena documented in this encounter Eye Exam Visual Acuity (Snellen - Linear) Right eye Left eye Dist sc 20/25 20/40 Dist ph sc 20/25 Tonometry (Applanation, 15:15) Right eye Left eye Pressure 14 17 Pupils Pharm dilated from [facility] exam Neuro/Psych Oriented x3: Yes Mood/Affect: Normal External Exam Right eye Left eye External Normal Slit Lamp Exam Right eye Left eye Lids/Lashes Normal Normal Conjunctiva/Sclera White and quiet White and quiet Cornea Clear Clear Anterior Chamber Deep and quiet Deep and quiet Iris pharm dilated pharm dilated Lens Clear Clear Vitreous Vitreous syneresis, no cells or tobacco dust Vitreous syneresis Fundus Exam Right eye Left eye Disc P&H, no heme, no ppa, no edema, no pallo r P&H, no heme, no ppa C/D Ratio 0.3 0.3 Macula dry, brisk luteal reflex dry Vessels no sheathing Normal Periphery attached attached Care Teams Industrial Service Technician Relationship Specialty Start Date End Date Jaime Guadarrama PA PCP - General 11/06/15 [address] [place] [address] documented as of this encounter
--- OUTSIDE RECORDS SUMMARY | 2022-04-08 16:00 | XMS_ITS | Encounter Summary ---
:1985 Author Organization [facility] Address [address] [place] [address] Care Team Providers Name Role Phone Jaime Guadarrama Primary Care Provider Encounter Details Date Type Department Care Team Description 12/26/2015 Documentation Visit [facility] Will Hall, Ophthalmology - [address] [phone] [facility] [address] [place] [address] (Wo rk) Social History Tobacco [...] making decisions? documented as of this encounter Consult Notes Will Hall MD - 12/26/2015 1220 EDT [facility] OPHTHALMOLOGY CONSULTATION - 12/26/2015 Oli Haynes MD [address], [address] [place], [place] [address] Dear Joel: This letter is in regard to a patient who I believe is to be seeing you this December 29. I believe my office has already sent out a package including a disk of her neuroimaging studies. I have seen her on referral from our retina service because of change in vision in the left eye with a visual field defect, as well as photopsias. She has undergone extensive investigation including laboratory studies looking for inflammatory nutritional markers, all of which were normal except for an ARABELLA of 40. The patient has also had an MRI ofthe brain and orbits with MS protocol and this did not demonstrate any inflammatory or structural abnormalities to explain her problem. Dr Gillespie carried out fluorescein angiogram and he felt that there was some leakage on the left optic nerve, but this does not appear to be a significant amount to me. Having said that, we did look carefully looking for an optic neuropathy. She was negative for Lhermitte's and Uhthoff's and in fact with correction improved to 20/20 in each eye. As you will note from the visual palma that were enclosed, she has an enlarged blind spot in the left eye, the eye with photopsias. Joel, I had ordered a VEP and an ERG. The visual evoked potential was symmetric and normal. The ERG is normal- we do not have multifocal ERG. Joel, I surmised that this might well be blind spot syndrome or MEWS without white dots. Of course, Iwelcome your input. Incidentally, it is very important to note the patient was very frustrated with how we were proceeding without a definite answer and had already contacted your office to set up a consultation. I was relieved to hear that she picked exactly the right person to investigate her problem. Hopefully, all the information will reach you. Incidentally, the OCTs were completely unremarkable. We did carry one out on 11/16/2015, following the initial one and the average thickness is 91 microns in the right and 89 microns in the left eye. The macula appears unremarkable to my eye. Joel, again it is important to note that the patient had already requested consultation from you, Shaquille think that is ideal. I am not sure she will agree to let me know your results, as I think it would be important to try and consolidate findings. If you have any suggestions or recommendations that we should followup and further seeing her, please do not hesitate to let me know. Best personal regards. Sincerely, Will Hall MD 10 39 AM - Will Hall MD mn Dictation ID: [id number] cc: Oli Haynes MD, [address], [address], [place] [address] documented in this encounter Plan of Treatment Not on filedocumented as of this encounter Visit Diagnoses Not on filedocumented in this encounter Care Teams Trolley Car Operator Relationship Specialty Start Date End Date Jaime Guadarrama PA PCP - General 11/06/[address] [place] [id number] documented as of this encounter
--- OUTSIDE RECORDS SUMMARY | 2022-04-08 16:00 | XMS_ITS | Encounter Summary ---
:1985 Author Organization [facility] Address [address] [place] [id number] Care Team Providers Name Role Phone Jaime Guadarrama Primary Care Provider Reason for Visit Reason Onset Date Comments Results 11/13/2015 Encounter Details Date Type Department Care Team Description 11/13/2015 Telephone [facility], As ap Results Care - Yolie sheppard PhysicianMD [address] [place] [address] Social History Tobacco Use Types Packs/Day Years [...] making decisions? documented as of this encounter Miscellaneous Notes Telephone Encounter - Anaid Colin RN - 11/13/2015 1544 EST Lab results still pending. elephone Encounter - Pisgah, Delia - 11/13/2015 1535 EST Reason for Call: Results Summary/Symptoms: PT WANTS TO KNOW RESULTS FROM TEST Onset and Duration? 11/13/15 Appointment Offered? N/A Delia Lundy 11/13/2015 15:36 documented in this encounter Plan of Treatment Not on filedocumented as of this encounter Visit Diagnoses Not on filedocumented in this encounter Care Teams Information Scientist Relationship Specialty Start Date End Date Jaime Guadarrama PA PCP - General 11/06/15 [address] [place] [address] documented as of this encounter
--- OUTSIDE RECORDS SUMMARY | 2022-04-08 16:00 | XMS_ITS | Encounter Summary ---
:1985 Author Organization [facility] Address [address] [place] [address] Care Team Providers Name Role Phone Jaime Guadarrama Primary Care Provider Reason for Visit Reason Comments Eye Problem C/o constant bright spot to left eye x 2 days. Today noticed the spot was flashing more sparkly whic h caused her concern. No dizziness or nausea. No eye pain. No redness or d rainage. No RIBERA, although had one 2 days ago. Occasional wears glasses for distance. Encounter Details Date Type Department Care Team Description 11/06/2015 Emergency [facility] Kisha Stoll MD [address] [facility] [place] [address] Visual changes Emergency Department EmergencyMegan MD (Primary Dx) - [facility] [address] [place] [address] Social History Tobacco Use Types Packs/Day Years Used Date Never Smoker Smokeless Tobacco: Never Used Alcohol Use Standard Drinks/Week Comments Yes 3 (1 standard drink = 0.6 oz pure alcoho l) Sex Assigned at Date Recorded Not on file documented as of this encounter Last Filed Vital Signs Vital Sign Reading Time Taken Comments Blood Pressure 127/75 11/06/2015 1543 EST Pulse - - Temperature 37 ??C (98.6 ??F) 11/06/2015 1531 EST Respiratory Rate 18 11/06/2015 1531 EST Oxygen Saturation - - Inhaled Oxygen Concentration - - Weight - - Height - - Body Mass Index - - documented in this encounter Discharge Instructions AttachmentsThe following attachments cannot be sent through Care Everywhere. FLOATERS AND FLASHES (BURKINAN)documented in this encounter Medications at Time of Discharge Medication Sig Dispensed Refills Start Date End Date Multivitamins with Take 1 Tab by mouth 0 Minerals Tab daily. Reported on 09/19/2016 norgestimate-ethinyl Take 1 Tab by mouth 0 estradiol (ORTHO daily. TRI-CYCLEN, TRI-SPRINTEC) 0.18/0.215/0.25 mg-35 mcg (28) tablet documented as of this encounter Discharge Disposition Disposition Code Departure Means Destination Home or Self Care Walk-out Home documented in this encounter ED Notes Sherley Stoll MD - 11/06/2015 1555 EST DOS: 11/06/2015 Chief Complaint Patient presents with ??? Eye Problem C/o constant bright spot to left eye x 2 days. Today noticed the spot was flashing more sparkly which caused her concern. No dizziness or nausea. No eye pain. No redness or drainage. No RIBERA, althoughhad one 2 days ago. Occasional wears glasses for distance. HPI The patient is a 30 y.o. female who presents today with Eye Problem HPI Comments: I, Regina Smith, am scribing for Sherley Stoll MD while he/she is personally performing the service. Regina Smith 11/06/2015 15:55 Rylie Kearns is a 30 y.o. female with an unremarkable PMHx who presents to the ED for evaluationof a bright white spot in her left eye that has been persistent for the past two days. Pt reports when she first noticed the spot, it was intermittent but it has since become constant. Pt states she was also worried because the spot has started to flash. Pt states the spot takes up a small portion of her visual field, and lies directly in the middle of her eye. She denies any recent trauma to the eye. She denies any eye pain or RBIERA. She denies nausea or dizziness. She denies history of HTN. Pt statesshe does not wear contacts and occasionally wears glasses for distance. The history is provided by the patient. Review of Systems Review of Systems Constitutional: Negative for fever and chills. HENT: Negative for facial swelling. Eyes: Positive for visual disturbance. Negative for pain. Respiratory: Negative for shortness of breath and wheezing. Cardiovascular: Negative for chest pain. Gastrointestinal: Negative for nausea and vomiting. Genitourinary: Negative for dysuria, urgency and difficulty urinating. Musculoskeletal: Negative for back pain and neck pain. Skin: Negative for color change and rash. Neurological: Negative for headaches. Psychiatric/Behavioral: Negative for confusion. All other systems reviewed and are negative. The patient's past medical, family and social history was reviewed and updated as needed. No Known Allergies Vital Signs Temp: 37 ??C (98.6 ??F) Temp src: Temporal Resp: 18 BP: 127/75 mmHg BP Device: BP Machine Patient Position: Sitting BP Cuff Location: Right arm O2 Device: None (Room air) Physical Exam Constitutional: She is oriented to person, place, and time. She appears well- developed and well-nourished. No distress. HENT: Head: Normocephalic and atraumatic. Eyes: Conjunctivae and EOM are normal. Pupils are equal, round, and reactive to light. Right eye exhibits no discharge. Left eye exhibits no discharge. No scleral icterus. Neck: Normal range of motion. No tracheal deviation present. Cardiovascular: Normal rate. Pulmonary/Chest: Effort normal. No respiratory distress. Abdominal: She exhibits no distension. Musculoskeletal: Normal range of motion. She exhibits no edema. Neurological: She is alert and oriented to person, place, and time. She exhibits normal muscle tone. Skin: Skin is warm and dry. No rash noted. Psychiatric: She has a normal mood and affect. Nursing note and vitals reviewed. Procedures ED COURSE A medical screening exam was performed. 30 year old female presents for evaluation of a bright spot in her left eye for the past two days that has started to flash. A bedside L eye US was performed,. Findings include: small vitreous hemorrage and no overt signs of retinal detachment. Images obtained, reviewed, and interpreted independently by myself. Please see formal report in the [facility] Images section. Images saved in PACS. I discussed the case with Opthamology, who will see the pt in clinic tomorrow. Prior to discharge usual and customary precautions were reviewed with the patient and/or family including follow-up instructions and reasons to return to the Emergency Department if condition worsens, does not improve as expected, or other new concerns arise. ASSESSMENT AND PLAN Final diagnoses: Visual changes DISPOSITION: Discharged The patient's pain was managed to an adequate level weighing risk vs. benefit of further medications. Upon departure from the Emergency Department, the patient's pain was 0 on a zero to ten scale. Condition at departure from the Emergency Department: Good PCP: Jaime SIM Number of Diagnoses or Management Options Visual changes: Amount and/or Complexity of Data Reviewed Tests in the radiology section of CPT??: ordered and reviewed Discuss the patient with other providers: yes This documentation is recorded by Regina Smith acting as Scribe under the direction and presence of Sherley Stoll MD. Sherley Stoll MD. I personally performed the services recorded by the scribe in my presence. I confirm the scribe's documentation has been reviewed by me to accurately and completely record my work, treatment, procedures, and medical decision making. 11/09/2015 1:11 No flowsheet data found. documented in this encounter Plan of Treatment Not on filedocumented as of this encounter Procedures Procedure Name Priority Date/Time Associated Diagnosis Comme nts POCT US OCULAR STAT 11/06/2015 17:42 EST Resul ts for this procedure are i n the results section . documented in this encounter Results POCT US OCULAR (11/06/2015 17:42 EST) Anatomical Region Laterality Modality Other Specimen Narrative [facility] - 11/12/2015 15:[address] [facility] - Ultrasound Exam Date: 11/06/2015 Exam Type: POCT US OCULAR Ophthalmologist Retina Specialist: Sherley Stoll MD Attending: Sherley Stoll MD Worksheet: POCUS_Ocular Exam Information: ?? A focused ultrasound of the orbit wa s performed to evaluate for retinal detachment, lens dislocation, vi treous hemorrhage, and other ocular pathology. ?? Exam type: Clinically indicated Indication(s) for Exam: ?? The exam was performed with the foll owing indications: Vision change Views Obtained ?? The orbit was evaluated, using a hig h frequency linear probe, on the following side: Left side Findings: ?? Retinal contour: Normal ?? Lens: Normal ?? Vitreous body: Hyperechoic density ?? Optic nerve sheath diameter: Normal Interpretation: Confirmatory study: ?? What confirmatory study was done?: N ot applicable Physician Signature: ?? I review and approve of the document ation above.: Signed by Sherley Stoll MD on November 12 at 3:11:32 PM This exam was performed and interpreted by the Emergency Department Staff Procedure Note Sherley Stoll MD - 11/12/2015 [facility] - Ultrasoun d Exam Date: 11/06/2015 Exam Type: POCT US OCULAR Ophthalmologist Retina Specialist: Sherley Stoll MD Attending: Sherley Stoll MD Worksheet: POCUS_Ocular Exam Information: A focused ultrasound of the orbit was p erformed to evaluate for retinal detachment, lens dislocation, vi treous hemorrhage, and other ocular pathology. Exam type: Clinically indicated Indication(s) for Exam: The exam was performed with the followi ng indications: Vision change Views Obtained The orbit was evaluated, using a high f requency linear probe, on the following side: Left side Findings: Retinal contour: Normal Lens: Normal Vitreous body: Hyperechoic density Optic nerve sheath diameter: Normal Interpretation: Confirmatory study: What confirmatory study was done?: Not applicable Physician Signature: I review and approve of the documentati on above.: Signed by Sherley Stoll MD on November 12 at 3:11:32 PM This exam was performed and interpreted by the Emergency Department Staff Performing Organization Address City/State/ZIP Code Phon e Number [facility] documented in this encounter Visit Diagnoses Diagnosis Visual changes - Primary Unspecified visual disturbance documented in this encounter Discontinued Medications Medication Sig Discontinue Reason Start Date End Date erythromycin (ROMYCIN) 5 1 cm 3 times daily Therapy completed 11/06/2015 mg/gram (0.5 %) ophthalmic ointment documented as of this encounter Care Teams Microbiology Supervisor Relationship Specialty Start Date End Date Jaime Guadarrama PA PCP - General 11/06/[address] [place] [id number] documented as of this encounter
--- OUTSIDE RECORDS SUMMARY | 2022-04-08 16:00 | XMS_ITS | Encounter Summary ---
:1985 Author Organization [facility] Address [address] [place] [address] Care Team Providers Name Role Phone Jaime Guadarrama Primary Care Provider Reason for Visit Reason Onset Date Comments Other 11/16/2015 Encounter Details Date Type Department Care Team Description 11/16/2015 Telephone [facility] Pedro Gillespie MD Other Ophthalmology - [facility] [address] [facility], [place] [address] (Wo rk) Social History Tobacco [...] this encounter Miscellaneous Notes Telephone Encounter - Nickie Tong - 11/18/2015 0921 EST Called and spoke to Ms. Kearns with date and time of MRI, which is scheduled on [address] [place] [address] in [place] with check in time at 1:15 pm with scan at 1:45 pm.Patient will return to see Dr Hall to review MRI on December 05, 2015 at 8 am. Rylie is on a waiting list so if she gets a sooner appointment for MRI she will call the office and we will see if Dr Hall can see her before he leaves the week of October. Rylie is aware I am out next week. Patient expressed that she is very nervous about the results of her MRI. elephone Encounter - Sherley Cruz - 11/16/2015 1637 EST Q) she had a MRI yesterday. Was something missed or done in error which now requires her to have another MRI this coming weekend? A) No, the MRI yesterday was only to take images of the orbits, and after seeing the pt today, Dr. Hall wants images of the whole brain. Q) is this the same process as yesterday's MRI? A) The process is the same, but the MRI orbits was 30 min long, and the MRI Head will be 60-90 min long. elephone Encounter - Sherley Cruz - 11/16/2015 1555 EST Pt wants to know about her upcoming MRI. She wanted to know what the testing for MS entailed. She got some conflicting information between the MD and the MRI career development associate, and she was hoping to clarify. documented in this encounter Plan of Treatment Not on filedocumented as of this encounter Visit Diagnoses Not on filedocumented in this encounter Care Teams Hospitalist Physician Relationship Specialty Start Date End Date Jaime Guadarrama PA PCP - General 11/06/15 [address] [place] [address] documented as of this encounter
--- OUTSIDE RECORDS SUMMARY | 2022-04-08 16:00 | XMS_ITS | Encounter Summary ---
:1985 Author Organization [facility] Address [address] [place] [address] Care Team Providers Name Role Phone Jaime Guadarrama Primary Care Provider Encounter Details Date Type Department Care Team Description 11/22/2016 Hospital Encounter [facility] - Danielle Ortiz, [facility] [address] [facility] [address] [place] [phone] (Wo rk) Social History Tobacco Use Types [...] as of this encounter Discharge Diagnoses Diagnosis N39.0 Urinary tract infection, site not specified-N39.0[ICD-10-CM] documented in this encounter Medications at Time [...] on filedocumented in this encounter Care Teams Joint Filler Relationship Specialty Start Date End Date Jaime Guadarrama PA PCP - General 11/06/[address] [place] [phone] documented as of this encounter
--- OUTSIDE RECORDS SUMMARY | 2022-04-08 16:00 | XMS_ITS | Encounter Summary ---
:1985 Author Organization [facility] Address [address] [place] [address] Care Team Providers Name Role Phone Jaime Guadarrama Primary Care Provider Reason for Visit Reason Comments Headache Sudden jaw pain on right holland e of under jaw. Some light headedness. Pain started about an hour ago. Encounter Details Date Type Department Care Team Description 07/17/2019 Emergency [facility] Ruel[facility] wood Kimbrough PA-C [address] [facility], [address] [place] [address] Jaw pain (Primary Dx) Emergency Department Emergency, MD Megan - [address] [address] Social History Tobacco Use Types Packs/Day Years Used Date Never Smoker Smokeless Tobacco: Never Used Alcohol Use Standard Drinks/Week Comments Yes 3 (1 standard drink = 0.6 oz pure alcoho l) Sex Assigned at Date Recorded Not on file documented as of this encounter Last Filed Vital Signs Vital Sign Reading Time Taken Comments Blood Pressure 114/77 07/17/2019 1602 EDT Pulse 70 07/17/2019 1602 EDT Temperature 36.3 ??C (97.3 ??F) 07/17/2019 1407 EDT Respiratory Rate 14 07/17/2019 1602 EDT Oxygen Saturation 98% 07/17/2019 1602 EDT Inhaled Oxygen Concentration - - Weight 54.4 kg (120 lb) 07/17/2019 1407 EDT Height 152.4 cm (5') 07/17/2019 1407 EDT Body Mass Index 23.44 07/17/2019 1407 EDT documented in this encounter Functional Status Functional Status Response [...] as of this encounter Discharge Diagnoses Diagnosis R68.84 Jaw pain-R68.84[ICD-10-CM] documented in this encounter Discharge Instructions Bethany Canales PA-C - 07/17/2019 You were seen in the ER with jaw pain and headaches. Like we discussed, the cause of your symptoms is still unclear at this point. Temporomandibular joint pain can cause similar symptoms, especially inpatients who grinds her teeth. The area where you are describing pain does have lymph nodes and salivary glands that do not appear swollen or infected at this point. At this time your exam is very reassuring, and I do not feel that you need any labs or imaging at this point. That being said, I do want you to come back if this becomes a repetitive issue, you have any swelling, rash, change in voice, or difficulty swallowing. You should see your doctor for a repeat visit next week and also it would be a good idea to see yourdentist next week for an evaluation, especially since you think you have been grinding your teeth atnight. Okay to use ibuprofen or Tylenol as needed for headaches. And keeping a headache journal can also help understand the cause and triggers of any recurring headaches. documented in this encounter Medications at Time [...] Code Departure Means Destination Home or Self Snf documented in this encounter ED Notes Bethany Valle PA-C - 07/17/2019 1618 EDT DOS: 07/17/2019 Chief Complaint Patient presents with ??? Headache Sudden jaw pain on right side of under jaw. Some light headedness. Pain started about an hour ago. HPI The patient is a 34 y.o. female who presents today with Headache (Sudden jaw pain on right side of under jaw. Some light headedness. Pain started about an hour ago. ) HPI 34-year-old female presents to the emergency department with sudden onset of right jaw and headache today. Patient is feeling her usual state of health when she suddenly had pain to the inferior aspectof the mandible near the angle, radiating to the right side of her head, 7/10 in severity when the pain first came on, came on very rapidly, and quickly resolved, now is very mild, 3/10 in severity now. Took ibuprofen before arriving which she feels did improve her symptoms. States she has been havingsome intermittent headaches over the last 1 to 2 weeks. Boyfriend at bedside states that she has been grinding her teeth at night, which she had no knowledge of previously doing this. She does routinely see a dentist, last seen about 6 months ago. Has not had any trauma to the area. Did have a cold a couple of weeks ago, but no upper respiratory symptoms in the last 1 to 2 weeks. Has not noticed any swelling or rashes. Denies difficulty swallowing. Denies vision change. Denies otalgia. Review of Systems Review of Systems Constitutional: Negative for chills and fever. HENT: Negative for dental problem, drooling, ear discharge, ear pain, facial swelling, sore throat, tinnitus, trouble swallowing and voice change. Respiratory: Negative for shortness of breath. Cardiovascular: Negative for chest pain and palpitations. Gastrointestinal: Negative for nausea and vomiting. Musculoskeletal: Negative for gait problem. Skin: Negative for pallor, rash and wound. Neurological: Positive for headaches. Negative for dizziness, facial asymmetry, speech difficulty, weakness and light-headedness. The patient's past medical, family and social history was reviewed and updated as needed. No Known Allergies Vital Signs Vitals Reassessment?: Yes Temp: 36.3 ??C (97.3 ??F) Temp src: Temporal Pulse: 70 Resp: 14 SpO2: 98 % BP: 114/77 BP Device: BP Machine Patient Position: Semi fowlers BP Cuff Location: Right arm O2 Device: None (Room air) Physical Exam Constitutional: She appears well-developed and well-nourished. No distress. Sitting up in bed, smiling and chatting with boyfriend when I arrive to exam room, speaking clearly in full sentences, no muffled speech, no hot potato voice, no trismus, nontoxic-appearing HENT: Head: Normocephalic and atraumatic. Right Ear: Hearing, tympanic membrane and ear canal normal. No drainage. No mastoid tenderness. Tympanic membrane is not bulging. Left Ear: Hearing, tympanic membrane and ear canal normal. Nose: Nose normal. Mouth/Throat: Oropharynx is clear and moist and mucous membranes are normal. No oral lesions. No trismus in the jaw. Abnormal dentition. No uvula swelling. Right TM raines. No tenderness along scalp or hairline. Sublingual space is soft, no masses, floor of mouth is normal. Dentition is good throughout, no gingival erosion, erythema, or swelling. No tenderness to right TMJ. No clicking. No pain with exam. Neck: Normal range of motion. Neck supple. Cardiovascular: Normal rate and regular rhythm. Pulmonary/Chest: Effort normal and breath sounds normal. Lymphadenopathy: She has no cervical adenopathy. Neurological: CN II-XII intact and symmetric. Sensation grossly intact throughout. Strength 5/5 in upper and lowerextremities bilaterally. Finger-nose normal. Speech clear. Gait normal. Skin: She is not diaphoretic. Psychiatric: She has a normal mood and affect. Vitals reviewed. RESULTS EKG orders: EKG 12-LEAD ECG Reviewed: Findings include: Sinus bradycardia at 58 bpm, T wave inversion in V2. The study has been independently viewed by me. The study has been interpreted independently and contemporaneously byme. The EKG appears to be a good tracing. Attending strike off machine operator not immediately available for acute interpretation. Radiology orders: None Procedures ED COURSE A medical screening exam was performed. 34-year-old female presenting to the emergency department after sudden onset of jaw pain radiating to the right side of her head which came on rapidly and resolved quickly. Symptoms generally resolved at time of evaluation. Differential diagnosis including but not limited to TMJ syndrome, dental pain, dental infection, Francisco Javier angina, otitis media, mastoiditis, less likely to be giant cell arteritis. Her exam did not demonstrate any pharyngeal abnormalities suggestive of infection or dental etiology of pain. No tenderness along hairline to suggest giant cell arteritis. Given that she has been grinding her teeth lately, I do suspect that this could be the underlying cause of her symptoms, although certainly not definitive at this time. Discussed with patient that did not appear to need any imaging or labs given that symptoms are generally resolved, to which patient agrees. Through shared medical decision-making decided the patient will go forward with outpatient work-up with PCP and her dentist. We had long discussion about need for return and emergent reevaluation if any repetitive symptoms, fevers, uncontrollable headaches, worst headache of her life, or any new/concerning symptoms. Patientvoices understanding and agreement with this plan. Final diagnoses: Jaw pain DISPOSITION: Discharged The patient's pain was managed to an adequate level weighing risk vs. benefit of further medications. Upon departure from the Emergency Department, the patient's pain was 3 on a zero to ten scale. Any further pain treatment will be at the discretion of the provider following up with the patient based on their clinical assessment. Condition at departure from the Emergency Department: Improved PCP: Jaime Hung was available for supervision. 07/17/2019 16:59 No flowsheet data found. Suleiman Patel RN - 07/17/2019 1602 EDT 12 Lead EKG Performed by Suleiman Tripp RN and shown to Dr. Gonzalez. Suleiman Patel RN - 07/17/2019 1555 EDT Upon patient reassessment and availiability of rooms; pt complains of sudden onset of right jaw painwith radiation down neck and into head. Lightheadedness accompanying pain. EKG ordered after assessment and triage acuity changed to reflect potential interventions and resources needed. documented in this encounter Plan of Treatment Not on filedocumented as of this encounter Procedures Procedure Name Priority Date/Time Associated Diagnosis Comme nts ECG REPORT - 08/05/2019 9:57 EST SCANNED EKG 12-LEAD STAT 07/17/2019 15:57 Results for this EDT procedure are i n the results section. documented in this encounter Results EKG 12-LEAD (07/17/2019 15:57 EDT) Specimen Narrative [facility] EKG - 08/05/2019 9:54 EST ?[facility] Emergency ? Test Date: ?2019-07-17 Pat Name: ? HARRISON STEVE ? Department: ?? ED ? Room: ? Gender: ? Female ? Hoop Coiler: ?? [id number] : ?1985 ? Requested By: DAISY Aranda Order Number: [id number] ? Reading MD: ?? REX GERHARD ? Measurements Intervals ?[place] ? Rate: ? 58 ? P: ?74 KS: ? 142 ?QRS: ?80 QRSD: ? 93 ? T: ?72 QT: ? 429 ? QTc: ?422 ? Interpretive Statements SINUS BRADYCARDIA Incomplete right bundle branch block No previous ECG available for comparison Edited by PIYUSH LYNCH MD on 07-22-2019 13:51:27 EDT. I reviewed the tracing and have either a greed or edited the findings in this report. Electronically Signed On 08-05-20 9:54:45 EST by REX HENNESSY MD. Procedure Note Gerhard Holcomb, Rex Valdez Jr., MD - 08/05/2019 [facility] Test Date: 2019-07-17 Pat Name: HARRISON STEVE Department: ED Room: Gender: Female Hoop Coiler: [id number] : 1985 Requested By: DAISY Aranda Order Number: [id number] Willem MD: Kavita HENNESSY MD Measurements Intervals [place] Rate: 58 P: 74 KS: 142 QRS: 80 QRSD: 93 T: 72 QT: 429 QTc: 422 Interpretive Statements SINUS BRADYCARDIA Incomplete right bundle branch block No previous ECG available for comparison Edited by PIYUSH LYNCH MD on 07-22-2019 13:51:27 EDT. I reviewed the tracing and have either a greed or edited the findings in this report. Electronically Signed On 08-05-20 9:54:45 EST by REX HENNESSY MD. Performing Organization Address City/State/ZIP Code Phon e Number [facility] EKG documented in this encounter Visit Diagnoses Diagnosis Jaw pain - Primary documented in this encounter Orders Procedures Count Last Ordered Date First Ordered Date ECG REPORT - SCANNED 1 08/05/2019 documented in this encounter Care Teams Prosthetic Assistant Relationship Specialty Start Date End Date Jaime Guadarrama PA PCP - General 11/06/[address] [place] [id number] documented as of this encounter
--- OUTSIDE RECORDS SUMMARY | 2022-04-08 16:00 | XMS_ITS | Encounter Summary ---
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), left Will Hall MD Procedures OCT (OPHTHALMIC DIGITAL IMAGING, POSTERIOR SEGMENT) [address] [phone] Referral ID Status Reason Start Date Expiration Date Visits Requ ested Visits Authorized [id number] Closed 03/05/2016 1 1 (Routine) - Closed Specialty Diagnoses / Procedures Referred By Contact Refer red To Contact Diagnoses Visual disturbance 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 It happe mo about 6 times yesterday and 3-4 times today [facility] fine both ey es. No pain both eyes. No light sensitivity. No floaters. No double vision. Patient had a head ache above Right eye x 2 wee ks ago that lasted a couple days, it would pulsate near my right evangelical off and on for a few days RIBERA yesterday all over head all day Pt was seen at [facility] on 12/29/15 for Visua l field defect/blind spot Left eye Dry Eye Eye Drops: Visine both eyes PRN more recently in the past few weeks Encounter Details Date Type Department Care Team Description 03/05/2016 Office Visit [facility] Will Hall MD Ophthalmology - [address], [address], [address] [place] [address] [place], [place] [phone] (Wo rk) Social History Tobacco Use [...] as of this encounter Discharge Diagnoses Diagnosis H53.9 Unspecified visual disturbance-H53 .9[ICD-10-CM] H53.19 Other subjective visual disturban deisy-H53.19[ICD-10-CM] 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 She called in that she had 2 things go on recently. One is starting yesterday in the right eye she had a couple of lightning-like flashes of light. That happened about 6 times yesterday and 3 to 4 times today; all confined to the right eye and all coming from the temporal aspect in. There are no increased floaters or change in her vision. She was previously seen because of decreased vision or a blind spot in the left eye and photopsias that were finally determined to be big blind spot syndrome or multiple effervescent white dot syndromewithout dots. She was concerned that she might be having a retinal detachment. The examination today shows vision of 20/25 and 20/40 without correction. The near vision is Tonya 1+ in each eye. The ocular pressure is 14 and 17 mmHg. The pupils are equal without afferent defect. Confrontation deshpande are full and ocular motility shows full versions and ductions and she is orthophoric. The Amsler grid test is normal in each eye, and the color vision is 13/14 correct in each eye with the [employer] pseudoisochromatic plates. The slit-lamp examination of the anterior segment and adnexa is unremarkable. There are absolutely no cells in the anterior chamber. There is no pigment dust in the anterior chamber either. The iris isnormal. The lens is clear in each eye. The vitreous has only some syneresis in each eye with no cells and no tobacco dust or pigmented cells. I do not see a true posterior vitreous detachment. The right optic nerve is pink, healthy, and normal without any hemorrhages, peripapillary atrophy, or edema. The cup-disc ratio is 0.1. The vessels are normal. There are no vasculopathic changes. The macula is dry and there is a brisk luteal reflex. There is no sheathing of the vessels. In the left eye, the nerve is pink and healthy without any hemorrhage or peripapillary atrophy. The cup-disc ratio is about 0.3. Again, the macula appears dry and the vessels are normal without sheathing. Finally, with indirect ophthalmoscopy, the retina is completely attached in each eye. We did repeat her optical coherence tomography. The average thickness is 92 microns in the right and84 microns in the left. The right eye has stayed the same. In the left eye, there is an artifact, soI cannot really compare. But we can look at the macula in each eye, and there has been no appreciable change in the thickness in the right eye of the perimacular nerve fiber layer, but there is some thinning at the fovea on the left eye, but there is a signal strength of 4 of 10. Incidentally, a previous OCT was 91 and 89, the one carried out on 11/16/2015. In summary, I do not see a cause for her photopsias. I did not see any retinal pathology nor a definite posterior vitreous detachment. I feel it is important that she see retina in the very near future. Also, if she notices increased photopsias, increased floaters, or curtains in her vision, she needs to speak up urgently as well justas she did today. We will facilitate her seeing retina this week. I do not see specific retinal pathology to explain her symptoms. We do need to keep in mind that she did have the previous retinopathy, but this time on the visual field two things were noted. One is the field in the right eye is completely normal without a big blind spot and the foveal threshold is 38 dB, and the field in the left eye also has a smaller blind spotthan it did, and the foveal threshold is 38 dB. It is hard to ignore the previous event in the left eye, but the flashing lights that she sees todayare not like those she saw with the situation in the left eye. We will help facilitate her seeing retina this week. She knows to speak up briskly if there is change. I have not scheduled another appointment to see her, but I intend to see her if there are any further questions or concerns that I can address. Sincerely, Will Hall MD 12 54 PM - Will Hall MD cn Dictation ID: [id number] cc: Jaime DUENAS, [place] [address] Kamari Gillespie MD, [facility] - Ophthalmology [address] [place] [address] Oli Haynes MD, [facility] [address], [address], [place] [address] Will Feldman MD - 03/05/2016 1230 EDT . Base Eye Exam Visual Acuity (Snellen - Linear) Right Left Dist sc 20/25 -2 20/40 Dist ph sc 20/25-2 Near sc J1+ J1+ Glasses not w. Patient today Tonometry (Applanation, 12:09) Right Left Pressure 14 17 Pupils Dark Light React APD Right 5 4 Brisk None Left 5 4 Brisk None Visual Deshpande Right Left Result Full Full Extraocular Movement Right Left Result Full Full Neuro/Psych Oriented x3: Yes Mood/Affect: Normal Dilation Both eyes: PAREMYD @ 12:10 Additional Tests Amsler Right Left Amsler Normal Normal Color Right Left AO PIP /14 /14 Slit Lamp and Fundus Exam Slit Lamp Exam Right Left Lids/Lashes Normal Normal Conjunctiva/Sclera White and quiet White and quiet Cornea Clear Clear Anterior Chamber Deep and quiet, no pigment dust Deep and quiet Iris Round and reactive Round and reactive Lens clear/slight cortical opacity, healthy capsule clear, healthy capsule Vitreous Vitreous syneresis, no cells or tobacco dust Vitreous syneresis Fundus Exam Right Left Disc P&H, no heme, no ppa, no edema, no pallor P&H, no heme, no ppa C/D Ratio 0.1 0.3 Macula dry, brisk luteal reflex dry Vessels no sheathing Normal Periphery attached attached Cornea examined, all 5 layers. ROS, Medications, Allergies reviewed. CVF, Pupil check and EOM's rechecked to include versions & ductions. Lids, lashes, lacrimal and orbit examined. All normal unless otherwise noted. This note has been dictated and scanned. 78D and 20 Diopter were used for the posterior exam. Test Performed: HVF 24-2 Indications for test: Visual disturbance/ abnormla VF Results/Findings: Right WNL / left abnormal blind spot but smalller Plan: see retina Test Performed: OCT RNFL and macula Indications for test: Visual disturbance/big blind spot syndrome left Results/Findings: 92/84= thin left superiorly Plan: retina consult IMP: Harrison was seen today for neurologic problem and dry eye. Diagnoses and all orders for this visit: Visual disturbance Orders: - Visual Field Exam, Extended - OCT (Ophthalmic Digital Imaging, Posterior Segment) Visual field defect Photopsia Comments: right eye Orders: - Visual Field Exam, Extended - OCT (Ophthalmic Digital Imaging, Posterior Segment) MEWDS (multiple evanescent white dot syndrome), left Comments: without dots Orders: - Visual Field Exam, Extended - OCT (Ophthalmic Digital Imaging, Posterior Segment) PLAN: See dictated note and notes in scans/media also. See shadow chart for hard copies of VF's and OCT's. I am scribing for Will Hall MD while he is personally performing the service. Becca Healy, L[employer]NING [employer]OTECTION INST[employer]ER 03/05/2016 documented in this encounter Plan of Treatment Scheduled Orders Name Type Priority Associated Diagnoses Order S chedule VISUAL FIELD EXAM, Ophthalmology Routine Visual distur bance Ordered: 03/05/2016 EXTENDED Photopsia MEWDS (multiple evanescent white dot syndrome), left OCT (OPHTHALMIC Ophthalmology Routine Visual disturban ce Ordered: 03/05/2016 DIGITAL IMAGING, Photopsia POSTERIOR SEGMENT) MEWDS (multiple evanescent white dot syndrome), left documented as of this encounter Visit Diagnoses Diagnosis Visual disturbance - Primary Unspecified visual disturbance Visual field defect Visual field defect, unspecified Photopsia Other visual distortions and entoptic ph enomena Mewds (multiple evanescent white dot syn drome), left documented in this encounter Eye Exam Visual Acuity (Snellen - Linear) Right eye Left eye Dist sc 20/25 -2 20/40 Dist ph sc 20/25-2 Near sc J1+ J1+ Glasses not w. Patient today Tonometry (Applanation, 12:09) Right eye Left eye Pressure 14 17 Pupils Dark Light React APD Right eye 5 4 Brisk None Left eye 5 4 Brisk None Visual Deshpande Right eye Left eye Full Full Extraocular Movement Right eye Left eye Full, Ortho Full, Ortho Neuro/Psych Oriented x3: Yes Mood/Affect: Normal Dilation Both eyes: PAREMYD @ 12:10 Amsler Right eye Left eye Normal Normal Color Right eye Left eye AO PIP 14 Slit Lamp Exam Right eye Left eye Lids/Lashes Normal Normal Conjunctiva/Sclera White and quiet White and quiet Cornea Clear Clear Anterior Chamber Deep and quiet, no pigment dust Deep and quiet Iris Round and reactive Round and reactive Lens clear/slight cortical opacity, healthy c lear, healthy capsule capsule Vitreous Vitreous syneresis, no cells or tobacco Vitreous syneresis dust Fundus Exam Right eye Left eye Disc P&H, no heme, no ppa, no edema, no pallo r P&H, no heme, no ppa C/D Ratio 0.1 0.3 Macula dry, brisk luteal reflex dry Vessels no sheathing Normal Periphery attached attached Care Teams Airway Controller Relationship Specialty Start Date End Date Jaime Guadarrama PA PCP - General 11/06/[address] [place] [id number] documented as of this encounter
--- OUTSIDE RECORDS SUMMARY | 2022-04-08 16:00 | XMS_ITS | Encounter Summary ---
:1985 Author Organization [facility] Address [address] [place] [address] Care Team Providers Name Role Phone Jaime Guadarrama Primary Care Provider Encounter Details Date Type Department Care Team Description 07/31/2020 Hospital Encounter [facility] Urgent Rash (Primary Dx) Care - Yolie sheppard [address] [place] [address] Social History Tobacco Use Types [...] making decisions? documented as of this encounter Medications at Time of Discharge Medication Sig Dispensed Refills Start Date End Date Multivitamins with Take 1 Tab by mouth 0 Minerals Tab daily. Reported on 09/19/2016 norgestimate-ethinyl Take 1 Tab by mouth 0 estradiol (ORTHO daily. TRI-CYCLEN, TRI-SPRINTEC) 0.18/0.215/0.25 mg-35 mcg (28) tablet documented as of this encounter Discharge Disposition Disposition Code Departure Means Destination Home or Self Prison documented in this encounter Plan of Treatment Not on filedocumented as of this encounter Visit Diagnoses Diagnosis Rash - Primary Rash and other nonspecific skin eruption documented in this encounter Care Teams Manager Sql Relationship Specialty Start Date End Date Jaime Guadarrama PA PCP - General 11/06/15 [address] [place] [address] documented as of this encounter
--- OUTSIDE RECORDS SUMMARY | 2022-04-08 16:00 | XMS_ITS | Encounter Summary ---
:1985 Author Organization [facility] Address [address] [place] [address] Care Team Providers Name Role Phone Jaime Guadarrama Primary Care Provider Encounter Details Date Type Department Care Team Description 05/17/2021 Travel Social History Tobacco Use Types Packs/Day Years [...] on filedocumented in this encounter Care Teams Toy Department Manager Relationship Specialty Start Date End Date Jaime Guadarrama PA PCP - General 11/06/15 [address] [place] [address] documented as of this encounter
--- OUTSIDE RECORDS SUMMARY | 2022-04-08 16:00 | XMS_ITS | Encounter Summary ---
:1985 Author Organization [facility] Address [address] [place] [address] Care Team Providers Name Role Phone Jaime Guadarrama Primary Care Provider Encounter Details Date Type Department Care Team Description 05/01/2018 Hospital Encounter [facility]- Jaime Guadarrama PA [address] [phone] (Wo rk) Social History Tobacco Use Types [...] as of this encounter Discharge Diagnoses Diagnosis Z11.3 Encounter for screening for infect ions with a predominantly sexual mode of transmission-Z11.3[ICD-10-CM] Z01.419 Encounter for gynecological exam ination (general) (routine) without abnormal findings-Z01.419[ICD-10-CM] documented in this encounter Medications at Time [...] on filedocumented in this encounter Care Teams Wildlife Conservationist Relationship Specialty Start Date End Date Jaime Guadarrama PA PCP - General 11/06/15 [address] [place] [address] documented as of this encounter
--- OUTSIDE RECORDS SUMMARY | 2022-04-08 16:00 | XMS_ITS | Encounter Summary ---
:1985 Author Organization [facility] Address [address] [place] [address] Care Team Providers Name Role Phone Jaime Guadarrama Primary Care Provider Reason for Visit Reason Onset Date Comments Appointment Related 12/09/2015 Encounter Details Date Type Department Care Team Description 12/09/[address] [facility] Will Hall Ap pointment Related Ophthalmology - [id number] [place] [address] [facility] [address] [place] [address] (Wo rk) Social History Tobacco [...] Notes Telephone Encounter - Nickie Tong - 12/09/2015 0847 EST Rylie set up an appointment with Dr Oli Dave at [facility] in [place] on December 29, 2015 for a second opinion. We had faxed notes and testing on October to Dr Dave. Today I mailed a packet of info as well to Dr Dave including all Dr Hall and Dr Gillespie's letters as well as Lonny and Dr Peralta's progress notes, all OCT's, all VFs, lab flowsheet, MRI reports as well as a CD with MRI images. documented in this encounter Plan of Treatment Not on filedocumented as of this encounter Visit Diagnoses Not on filedocumented in this encounter Care Teams Energy And Conservation Technician Relationship Specialty Start Date End Date Jaime Guadarrama PA PCP - General 11/06/[address] [place] [id number] documented as of this encounter
--- OUTSIDE RECORDS SUMMARY | 2022-04-08 16:00 | XMS_ITS | Encounter Summary ---
:1985 Author Organization [facility] Address [address] [place] [address] Care Team Providers Name Role Phone Jaime Guadarrama Primary Care Provider Encounter Details Date Type Department Care Team Description 05/10/2016 Results Only [facility]- Suleiman Huertas PA [phone] [address] [place], [place] [address] (Wo rk) Social History Tobacco Use Types [...] Procedure Name Priority Date/Time Associated Comments Diagnosis CHLAMYDIA/N. Routine 05/10/2016 14:37 Results for this GONORRHOEAE AMPLIFIED EDT proced ure are in RNA the results section. documented in this encounter Results CHLAMYDIA/GC AMPLIFIED (05/10/2016 14:37 EDT) Chlamydia Result No Chlamydia [facility] trachomatis DNA LABORATORY detected by SERVICES ear specialist mediated amplification. GC Result No Neisseria [facility] gonorrhoeae DNA LABORATORY detected by SERVICES ear specialist mediated amplification. Specimen Vagina Performing Organization Address City/State/ZIP Code Phon e Number [facility] [address] [place] [address] SERVICES documented in this encounter Visit Diagnoses Not on filedocumented in this encounter Care Teams Field Cane Scale Clerk Relationship Specialty Start Date End Date Jaime Guadarrama PA PCP - General 11/06/15 [address] [place] [address] documented as of this encounter
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
--- OUTSIDE RECORDS SUMMARY | 2022-04-08 16:00 | XMS_ITS | Encounter Summary ---
:1985 Author Organization [facility] Address [address] [place] [address] Care Team Providers Name Role Phone Jaime Guadarrama Primary Care Provider Encounter Details Date Type Department Care Team Description 11/11/2015 Hospital Encounter [facility] Kathy Young, RESPONDER [address] [place] [address] Screen for STD (sexually transmitted dis ease) (Primary Dx); Urgent Care - Yolie Diana, Provider, Anal itching [address] [address] Social History Tobacco Use Types Packs/Day Years Used Date Never Smoker Smokeless Tobacco: Never Used Alcohol Use Standard Drinks/Week Comments Yes 3 (1 standard drink = 0.6 oz pure alcoho l) Sex Assigned at Date Recorded Not on file documented as of this encounter Last Filed Vital Signs Vital Sign Reading Time Taken Comments Blood Pressure 120/78 11/11/2015 1823 EST Pulse 60 11/11/2015 1823 EST Temperature 38.1 ??C (100.6 ??F) 11/11/2015 1823 EST Respiratory Rate 18 11/11/2015 1823 EST Oxygen Saturation - - Inhaled Oxygen Concentration - - Weight - - Height - - Body Mass Index - - documented in this encounter Functional Status Functional [...] decisions? documented as of this encounter Discharge Instructions Kathy Julien NP - 11/11/2015 1. Use the pinworm kit prior to taking the pinworm medicine. The handout is on pinworm, even though you might not have it, it is good to treat to cover the anal itching symptoms. 2. You will receive a call if tests are abnormal and otherwise a letter will be sent. AttachmentsThe following attachments cannot be sent through Care Everywhere.ANAL ITCHING (NIGERIAN)PINWORMS (NIGERIAN)documented in this encounter Medications at Time of [...] 2 weeks documented as of this encounter Ordered Prescriptions Prescription Sig Dispensed Refills Start Date End Date albendazole (ALBENZA) 200 Take 2 Tabs by 4 Tab 0 201508/30/2019 mg tablet mouth once for 1 dose. Repeat in 2 weeks documented in this encounter Discharge Disposition Disposition Code Departure Means Destination Home or Self Penitentiary documented in this encounter ED Notes Kathy Bland NP - 11/11/2015 195 EST DOS: 11/11/2015 No chief complaint on file. The patient is a 30 y.o. female who presents today with No chief complaint on file. HPI Comments: Rylie, 30 y.o. Female with anal itching for about 3 weeks, starting prior to new sexual partner 2 weeks ago with first relations. She broke up with her boyfriend in August 2015 and comes to clinic for STI testing. She is worried she has syphilis because she has left eye vision field change which is being worked up by opthamology. Her anal itching is mostly at night. The history is provided by the patient. Review of Systems Constitutional: Negative for fever. Gastrointestinal: Negative for abdominal pain. Genitourinary: Negative for dysuria, vaginal discharge and genital sores. No current facility-administered medications for this encounter. Current Outpatient Prescriptions Medication Sig Dispense Refill ??? albendazole (ALBENZA) 200 mg tablet Take 2 Tabs by mouth once for 1 dose. Repeat in 2 weeks 4 Tab 0 ??? Multivitamins with Minerals Tab Take 1 Tab by mouth daily. ??? norgestimate-ethinyl estradiol (ORTHO TRI-CYCLEN, TRI-SPRINTEC) 0.18/0.215/0.25 mg-35 mcg (28) tablet Take 1 Tab by mouth daily. No Known Allergies Patient Active Problem List Diagnosis Date Noted ??? Optic neuritis 11/11/2015 ??? Photopsia 11/10/2015 ??? 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 History of recurrent urinary tract infection 09/11/2012 Past Medical History Diagnosis Date ??? History of recurrent UTIs 09/11/2012 ??? E. coli UTI ??? Eye trauma 2009 Baseball hit above eye History Substance Use Topics ??? Smoking status: Never Smoker ??? Smokeless tobacco: Never Used ??? Alcohol Use: 1.8 oz/week 3 Glasses of wine per week Family History Problem Relation Age of Onset ??? Hypertension Mother ??? Hypertension Father ??? Cataract Maternal Grandmother ??? Blindness Neg Hx ??? Glaucoma Neg Hx ??? Macular Degeneration Neg Hx ??? Stroke Neg Hx ??? Thyroid Disease Neg Hx ??? Tuberculosis Neg Hx ??? Diabetes Neg Hx ??? Cancer Neg Hx BP 120/78 mmHg Pulse 60 Temp(Src) 100.6 ??F (38.1 ??C) (Temporal) Resp 18 Physical Exam Constitutional: She appears well-nourished. No distress. Pulmonary/Chest: Effort normal. Genitourinary: Gurdeep Cheung MA, present during genital exam. Neurological: She is alert. Psychiatric: She has a normal mood and affect. Her behavior is normal. Consult orders: None PCP: Jaime Guadarrama Results for orders placed or performed during the hospital encounter of 11/11/15 VAGINITIS EXAM Result Value Ref Range Gram Smear Result No yeast seen. Gram Smear Result No clue cells present Gram Smear Result Performed at [place], [place] Result No Trichomonas antigen detected. Result Performed at [place], [place] ED/URGENT CARE ADD-ON Result Value Ref Range Tests to be added HIV Number for problems [id number] (URGENT CARE) TEST, URINE Result Value Ref Range Result- Test, Ur Neg Neg No orders to display Radiology orders: None Imaging Results None No orders to display Procedures Course: A medical screening exam was performed. VSS- without fever symptoms Impression: Anal itching with normal rectral exam (no pinworm, hemorrhoid, frederic rash or lesion appreciated) Plan: Test and treat clinically for Pinworm. Handout and discussion about pinworm with good handwashing and short cut nails discussed. STI screening initiated. HIV was added to bloodwork obtained by opthamology exam today. Follow-up advised with PCP. Evaluation: Pleasant and agrees with plan. Disposition: Discharged The patient's pain was managed to an adequate level weighing risk vs. benefit of further medications. Upon departure from [facility], the patient's pain was 0 on a zero to ten scale. Condition at departure from the [facility] : Good Final diagnoses: Screen for STD (sexually transmitted disease) Anal itching Dr. Gato Varela was available for consultation during my care of this patient. MDM Number of Diagnoses or Management Options Anal itching: Screen for STD (sexually transmitted disease): Amount and/or Complexity of Data Reviewed Clinical lab tests: ordered and reviewed 11/11/2015 21:22 Holly Cheung MA - 11/11/2015 195 EST Examination chaperoned by Holly Cheung MA. Rossana Lee RN - 11/11/2015 1840 EST Presents for STI testing, an itchy area on her anus. Pt notes she had sex 2 weeks ago, but was protected. Then 1 month ago had sex with her partner at the time, but is now concerned he may have been cheating at the end of their relationship. Pt notes she buys cheap toilet paper and wears thongs most of the time and not sure if that is causing her anal itching. Denies: vaginal discharge, abdominal pain, foul smells, dysuria. 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 documented in this encounter Plan of Treatment Not on filedocumented as of this encounter Procedures Procedure Name Priority Date/Time Associated Diagnosis Comme nts TEST, STAT 11/11/2015 20:00 Anal itching Results for this URINE EST procedure are i n the results section. ED/URGENT CARE STAT 11/11/2015 19:55 Screen for STD Results for this ADD-ON EST (sexually procedure are i n transmitted disease) the res ults section. CHLAMYDIA/N. Routine 11/11/2015 19:55 Screen for STD Results f or this GONORRHOEAE EST (sexually procedure are i n AMPLIFIED RNA transmitted disease) the re sults section. ZZVAGINITIS EXAM STAT 11/11/2015 19:55 Screen for STD Resul ts for this EST (sexually procedure are i n transmitted disease) the res ults section. ARABELLA TITER Routine 11/11/2015 15:18 Results for this EST procedure are i n the results section. HIV 1/2 ANTIGEN AND Routine 11/11/2015 15:18 Resu lts for this ANTIBODY, 4TH EST procedure are in GENERATION the results section. documented in this encounter Results TEST, URINE (11/11/2015 20:00 EST) Result- Neg Neg [facility] Test, Ur Comment: LABORATORY NOTE: SERVICES False negative results may occur in women who are beyond 5-8 weeks gestation. Diagnosis of should be based on a correlation of test results with typical clinical signs and symptoms. Performed at [facility], [place], [place] Specimen Urine (substance) - Urine Performing Organization Address City/State/ZIP Code Phon e Number [facility] LABORATORY [address] [place] [address] SERVICES CHLAMYDIA/GC AMPLIFIED (11/11/2015 19:55 EST) Chlamydia Result No Chlamydia [facility] trachomatis DNA LABORATORY detected by SERVICES showroom manager mediated amplification. GC Result No Neisseria [facility] gonorrhoeae DNA LABORATORY detected by SERVICES showroom manager mediated amplification. Specimen Other (qualifier value) - Endocervix Performing Organization Address [facility]/ZIP Code Phon e Number [facility] [address] [place] [address] SERVICES VAGINITIS EXAM (11/11/2015 19:55 EST) Pathologist [facility] Gram Smear Result No yeast seen. [facility] SERVICES Gram Smear Result No clue cells [facility] present LABORATORY SERVICES Gram Smear Result Smear NOT consistent [facility] with bacterial LABORATORY vaginosis. SERVICES Result No Trichomonas [facility] antigen detected. LABORATORY SERVICES Result Performed at [facility], LABORATORY [place], [place] SERVICES Specimen Other (qualifier value) - Vagina Performing Organization Address [facility] Phon e Number [facility] [address] [place] [address] SERVICES ED/URGENT CARE ADD-ON (11/11/2015 19:55 EST) Pathologist [facility] Tests to be added HIV [facility] [place] [id number] (URGENT [facility] problems CARE)Comment: LABORATORY SERVICES Performed at [facility], [place], [place] Specimen Other Performing Organization Address [facility] Phon e Number [facility] [address] [place] [address] SERVICES ARABELLA TITER (11/11/2015 15:18 EST) Pathologist Sig nature ARABELLA Titer 40Comment: Speckled 0 - 40 dils [facility] pattern LABORATORY SERVICES Specimen Blood Performing Organization Address [facility]/ZIP [facility] Phon e Number [facility] [address] [place] [address] SERVICES HIV 1/2 ANTIBODY (11/11/2015 15:18 EST) Pathologist [facility] HIV 1/2 Antibody Negative [facility] Comment: CENTER LABORATORY If acute HIV-1 infection is suspected in a SERVICES high risk patient, submit plasma specimen for HIV-1 RNA quantification test. Reference Range: ??Negative Assayed utilizing [email or web address] chemiluminescent technology. Specimen Blood Performing Organization Address City/[facility]/ZIP Code Phon e Number [facility] [address] [place] [address] SERVICES documented in this encounter Visit Diagnoses Diagnosis Screen for STD (sexually transmitted dis ease) - Primary Screening examination for venereal disea se Anal itching Pruritus ani documented in this encounter Care Teams Plate Furnace Operator Relationship Specialty Start Date End Date Jaime Guadarrama PA PCP - General 11/06/15 [address] [place], [place] [address] documented as of this encounter
--- OUTSIDE RECORDS SUMMARY | 2022-04-08 16:00 | XMS_ITS | Encounter Summary ---
:1985 Author Organization [facility] Address [address] [place] [address] Care Team Providers Name Role Phone Jaime Guadarrama Primary Care Provider Encounter Details Date Type Department Care Team Description 11/11/2015 Hospital Encounter [facility] - Main Unknown, Provider, [place] [address] [facility] [phone] [place] [address] (Work) [phone] Social History Tobacco Use Types Packs/Day Years [...] Code Departure Means Destination Home or Self Nursing Home documented in this encounter Plan of Treatment Not on filedocumented as of this encounter Visit Diagnoses Not on filedocumented in this encounter Care Teams Fiscal Technician Relationship Specialty Start Date End Date Jaime Guadarrama PA PCP - General 11/06/15 [address] [place] [address] documented as of this encounter
--- OUTSIDE RECORDS SUMMARY | 2022-04-08 16:00 | XMS_ITS | Encounter Summary ---
:1985 Author Organization [facility] Address [address] [place] [address] Care Team Providers Name Role Phone Jiame Guadarrama Primary Care Provider Reason for Visit Reason Onset Date Comments Eye Problem 03/05/2016 Encounter Details Date Type Department Care Team Description 03/05/2016 Telephone [facility] Will Hall MD Eye Problem Ophthalmology - [facility] [address] [facility] [address] [place], [place] [id number] [place] [address], [place] [address] (Wo rk) Social History Tobacco [...] Notes Telephone Encounter - Nickie Tong - 03/05/2016 1004 EDT Called Rylie and she is coming in at 11 am. She is aware she will be dilated and may be here 3-4 hours. elephone Encounter - Kelli Joseph, CYNTHIA - 03/05/2016 0937 EDT Per Kathleen Hall is going to see pt today at 1100. She gave information to Nickie to call pt and schedule. elephone Encounter - Althea Raman RN - 03/05/2016 0824 EDT As of 03/05/2016 8:24: Nature of problem? 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 Flashes of light right eye. Per pt this started yesterday and has seen a flash of light once this morning. Per pt the flash last 1-2 seconds and is in the outside corner of the right eye. Pt had a RIBERA yesterday, but none today. RIBERA was all across her forehead. No nausea/vomitting with RIBERA. No new floaters. No blurryvision. No curtain/veil/loss of side vision. Pt's eyes have been itchy and pt attributes this to allergies (hasn't been taking any allergies meds for this). Onset and Duration? Started yesterday Is this an injury? no Pain? None today Have you recently had eye surgery? no Are you having flashes/and or floaters? See above Any sensitivity to light? no Any loss of vision/curtain/darkness/veil? no Any change in vision/double vision/blurred? no Any redness? no Do you wear contact lenses? No-glasses Who is your usual eye doctor? ANDREW only per pt Phone Number of Eye Doctor (if not FACP) Any other pertinent information? (Please remember that a physician must approve if you are telling the patient to wait for an appointment.) Where are you now? (i.e. home/close to our office/out of town, etc.) [place] If the MD needs to see you today, how long would it take you to get to our office? Could come in today if needed, would prefer the afternoon, 30 mins What is the best phone number for us to speak to you in the next two hours? [phone] (ok to LMOM) (VERIFY THE PHONE NUMBERS REGARDLESS OF WHAT IS IN THE SYSTEM.) Telephone Encounter - Nickie Tong - 03/05/2016 0810 EDT Rylie calling because she is experiencing flashes of light in her right eye. She was seen yesterday in the ER and was advised to follow up here. Had headache as well yesterday. documented in this encounter Plan of Treatment Not on filedocumented as of this encounter Visit Diagnoses Not on filedocumented in this encounter Care Teams Technical Artist Relationship Specialty Start Date End Date Jaime Guadarrama PA PCP - General 11/06/[address] [place] [address] documented as of this encounter
--- OUTSIDE RECORDS SUMMARY | 2022-04-08 16:00 | XMS_ITS | Encounter Summary ---
:1985 Author Organization [facility] Address [address] [place] [address] Care Team Providers Name Role Phone Julia Mcdowell MD Primary Care Provider [phone] Encounter Details Date Type Department Care Team Description 07/26/[address] [facility] - Jaime Mccoy PA [place] [address] [address] [phone] (Wo rk) Social History Tobacco Use Types Packs/Day Years Used Date Never Smoker Smokeless Tobacco: Never Used Alcohol Use Standard Drinks/Week Comments Yes 1 (1 standard drink = 0.6 oz pure alcoho l) Sex Assigned at Date Recorded Not on file documented as of this encounter Discharge Diagnoses Diagnosis Z11.3 Encounter for screening for infect ions with a predominantly sexual mode of transmission-Z11.3[ICD-10-CM] documented in this encounter Medications at Time [...] on filedocumented in this encounter Care Teams Room Service Food Server Relationship Specialty Start Date End Date Julia Mcdowell MD PCP - General 03/14/15 11/05/15 documented as of this encounter
--- OUTSIDE RECORDS SUMMARY | 2022-04-08 16:00 | XMS_ITS | Encounter Summary ---
:1985 Author Organization [facility] Address [address] [place] [address] Care Team Providers Name Role Phone Jaime Guadarrama Primary Care Provider Reason for Visit Reason Onset Date Comments Other 11/28/2015 pt had mri on ay. she is very insistant on getting results. she is aware that Dr Hall is out and results have been sent to pcp, wants to speak to anybody about test. Encounter Details Date Type Department Care Team Description 11/28/2015 Telephone [facility] Will Hall, Ot her (pt had mri on Ophthalmology - [place] saturday. she is very [place] [address] [place] insistant on getting [address] [facility] results. [place] [address] [facility] that Dr Hall is out [phone] [place], [place] [address] and results have been [place], [place] sent to pcp, [place] [phone] speak to anybody [phone] (Wo rk) about test. ) Social History Tobacco Use Types Packs/Day Years [...] this encounter Miscellaneous Notes Telephone Encounter - Althea Raman RN - 11/28/2015 1406 EST 1406: I called this pt back. I relayed the message below from Ayo (tech) and Sherley (OSS). Pt was happy with this information. She will give us a call back should her eye problem worsen (worsening flashes/blind spot or any new blind spots or vision changes/any further questions or concerns). No further questions at this time and she will see ANDREW as scheduled. elephone Encounter - Sherley Cruz - 11/28/2015 1329 EST Earlier this morning, I sent Dr. Hall's last note and the MRI results to the patient's PCP Jaime Guadarrama and asked that she speak to the patients about the results to relieve her fears until her appointment with Dr. Hall on 12.05.15. They had agreed to do so when I spoke to [facility] this morning, however, only the preliminary results are in, and they may be waiting until the results are finalized. elephone Encounter - Ayo Cardona - 11/28/2015 1320 EST Pt. MRI was opened by Dr. Francisco and he reviewed the Radiologists scan and notation. Dr. Francisco notes the Radiologist did not see anything on the scan that accounts for the patients symptoms, but Dr. Hall is the expert in this case and Dr. Francisco wants Dr. Hall to review the information and scans. As far as the current symptoms of flashes or increase in flashes, if symptoms worsen more so or an occlusion of vision happens the patient is to call in for Triage until then keep all upcoming appointments and reviews with MD. elephone Encounter - Althea Raman RN - 11/28/2015 1259 EST 1301: Pt is still seeing a blind spot, but no larger then results. Seeing flashes more frequently inthe left eye (was seeing them every few days and now seeing them 3-4 past few days). They last 5 seconds. No new floaters. No new vision changes. No eye pain. No photophobia. Pt wants results of her MRI. I told her that I would speak with a covering provider, but that I am unsure if she will being able to get her the results or not. Telephone Encounter - Althea Raman RN - 11/28/2015 1251 EST I can not give this pt the results. It has to come from Dr. Hall. 1252: I called this pt back. I was unable to reach her. I LMOM stating that I can not give her the results, but that I am aware that she still has some questions. I told her to please give us a call back. documented in this encounter Plan of Treatment Not on filedocumented as of this encounter Visit Diagnoses Not on filedocumented in this encounter Care Teams Head End Desizing Machine Operator Relationship Specialty Start Date End Date Jaime Guadarrama PA PCP - General 11/06/[address] [place] [address] documented as of this encounter
--- OUTSIDE RECORDS SUMMARY | 2022-04-08 16:00 | XMS_ITS | Encounter Summary ---
:1985 Author Organization [facility] Address [address] [place] [address] Care Team Providers Name Role Phone Jaime Guadarrama Primary Care Provider Encounter Details Date Type Department Care Team Description 11/26/2015 Hospital Encounter [facility] - Will Hall Tilley MD [address] [facility], [address], [place] [address] (Wo rk) Social History Tobacco [...] as of this encounter Discharge Diagnoses Diagnosis Z01.89 Encounter for other specified spe cial examinations-Z01.89[ICD-10-CM] documented in this encounter Medications at Time [...] Code Departure Means Destination Home or Self [facility] documented in this encounter Plan of Treatment Not on filedocumented as of this encounter Visit Diagnoses Not on filedocumented in this encounter Care Teams Coat Operator Insulator Relationship Specialty Start Date End Date Jaime Guadarrama PA PCP - General 11/06/15 [address] [place] [address] documented as of this encounter
--- OUTSIDE RECORDS SUMMARY | 2022-04-08 16:00 | XMS_ITS | Encounter Summary ---
:1985 Author Organization [facility] Address [address] [place] [address] Care Team Providers Name Role Phone Jaime Guadarrama Primary Care Provider Encounter Details Date Type Department Care Team Description 11/11/2015 Phlebotomy Only [facility] Operation Agent, Optic neuritis - [facility] (Primary Dx) [address] [place] [address] Social History Tobacco Use Types Packs/Day Years [...] Procedure Name Priority Date/Time Associated Comments Diagnosis SSB ANTIBODIES BY Routine 11/11/2015 15:18 Optic neuritis Resu lts for this PATRICK EST procedure are i n the results section. SSA ANTIBODIES BY Routine 11/11/2015 15:18 Optic neuritis Resu lts for this PATRICK EST procedure are i n the results section. SYPHILIS SEROLOGY Routine 11/11/2015 15:18 Optic neuritis Resu lts for this EST procedure are i n the results section. LYME AB Routine 11/11/2015 15:18 Optic neuritis Results f or this EST procedure are i n the results section. PROTEIN S ACTIVITY Routine 11/11/2015 15:18 Optic neuritis Res ults for this EST procedure are i n the results section. METHYLMALONIC ACID Routine 11/11/2015 15:18 Optic neuritis Res ults for this EST procedure are i n the results section. PROTEIN S ANTIGEN Routine 11/11/2015 15:18 Optic neuritis Resu lts for this EST procedure are i n the results section. PROTEIN C ANTIGEN Routine 11/11/2015 15:18 Optic neuritis Resu lts for this EST procedure are i n the results section. SED RATE Routine 11/11/2015 15:18 Optic neuritis Results f or this EST procedure are i n the results section. COMPLETE BLOOD COUNT Routine 11/11/2015 15:18 Optic neuritis R esults for this AND DIFFERENTIAL EST procedure a re in the results section. PROTEIN C ACTIVITY Routine 11/11/2015 15:18 Optic neuritis Res ults for this EST procedure are i n the results section. RHEUMATOID FACTOR Routine 11/11/2015 15:18 Optic neuritis Resu lts for this EST procedure are i n the results section. ANGIOTENSIN CONVERTING Routine 11/11/2015 15:18 Optic neuritis Results for this ENZYME (SB) EST procedure are i n the results section. C REACTIVE PROTEIN Routine 11/11/2015 15:18 Optic neuritis Res ults for this EST procedure are i n the results section. ANTI NUCLEAR AB (ARABELLA), Routine 11/11/2015 15:18 Optic neuritis Results for this IFA EST procedure are i n the results section. BUN Routine 11/11/2015 15:18 Optic neuritis Results f or this EST procedure are i n the results section. HOMOCYSTEINE Routine 11/11/2015 15:18 Optic neuritis Results f or this EST procedure are i n the results section. FOLATE Routine 11/11/2015 15:18 Optic neuritis Results f or this EST procedure are i n the results section. VITAMIN B12 Routine 11/11/2015 15:18 Optic neuritis Results f or this EST procedure are i n the results section. CREATININE Routine 11/11/2015 15:18 Optic neuritis Results f or this EST procedure are i n the results section. documented in this encounter Results HOMOCYSTEINE (11/11/2015 15:18 EST) Homocysteine 8.8 4.5 - 12.4 [facility] Comment: umol/L LABORATORY Reference range may not apply to non-fasting samples. SERVICES It is not recommended that EDTA and serum from the same patient be used interchangeably. Serum concentrations have been observed to be up to 10% higher than EDTA plasma. ??Reference range may not apply to serum results. Specimen Blood specimen (specimen) - Blood Performing Organization Address [facility] e [facility] LABORATORY [address] [place] [address] SERVICES PROTEIN C ANTIGEN (11/11/2015 15:18 EST) Protein C Antigen 83 70 - 150 % [facility] Comment: LABORATORY SERVICES Performed or Referred by: [facility] Labs: [facility] [address] [place] [address], Lab Dir: Priyank agustin III, MD Specimen Blood specimen (specimen) - Blood Performing Organization Address [facility] LABORATORY [address] [place] [address] SERVICES PROTEIN C ACTIVITY (11/11/2015 15:18 EST) Protein C Clot 138 71 - 199 % [facility] Comment: LABORATORY SERVICES a. ??Acquired Protein C deficiencies are associated wi th liver disease, oral anticoagulants, acute thrombotic events and DIC. b. ??Results may be affected by plasma heparin levels greater than 1.5 U/mL for UFH and 0.8 for LMWH. c. ??Results may be overesti mated in the presence of direct thrombin inhibitors such as Hirudin (Refludan) and Argatroban (Novastan). d. ??Acute illness and/or thrombosis may influence uzma t results in an unpredictable manner, therefore results should b e interpreted with caution in this setting. Specimen Blood specimen (specimen) - Blood Performing Organization Address [facility] e [facility] LABORATORY [address] [place] [address] SERVICES PROTEIN S ANTIGEN (11/11/2015 15:18 EST) Protein S Ag, Free 77 50 - 160 % [facility] Comment: LABORATORY SERVICES Performed or Referred by: [facility] Labs: [facility] [address] [place] [address], Lab Dir: Priyank agustin III, MD Specimen Blood specimen (specimen) - Blood Performing Organization Address [facility] Phon e Number [facility] LABORATORY [address] [place] [address] SERVICES PROTEIN S ACTIVITY (11/11/2015 15:18 EST) Pathologist [facility] Protein S 77 64 - 147 % [facility] Activity Comment: LABORATORY SERVICES a. ??Acquired Protein S deficiencies are associa ge with oral anticoagulants, acute thrombotic events, , vitamin K deficien cy, L-aspariginase treatment and inflammatory syndrome. Deficiencies may or may not be present with liver disease and DIC. b. ??Results may be affected by plasma h eparin levels greater than 1.6U/mL for UFH or greater than 1.8 U/mL for LMWH. c. ??Results may be overesti mated in the presence of direct thrombin inhibitors such as Hirudin (Refludan) and Argatroban (Novastan). d. ??Acute illness and/or thrombosis may influence uzma t results in an unpredictable manner, therefore results should b e interpreted with caution in this setting. e. ??Age and hormonal status may affect the normal ran ge for females. Specimen Blood specimen (specimen) - Blood Performing Organization Address [facility] Phon e Number [facility] LABORATORY [address] [place] [address] SERVICES METHYLMALONIC ACID (11/11/2015 15:18 EST) Pathologist [facility] Methylmalonic Acid 0.19 <=0.40 [facility] Comment: nmol/mL LABORATORY Performed or Referred by: [facility] Labs: [facility], [address] [place] [address], Lab Dir: Priyank agustin III, MD Specimen Blood specimen (specimen) - Blood Performing Organization Address [facility] Phon e Number [facility] LABORATORY [address] [place] [address] SERVICES (ABNORMAL) HEMAGRAM AND DIFFERENTIAL (11/11/2015 15:18 EST) WBC 4.16 4.0 - 12.4 [facility] K[facility] LABORATORY SERVICES RBC 4.42 3.86 - 5.04 [facility] M[facility] LABORATORY SERVICES Hemoglobin 13.2 11.6 - 15.2 [facility] gm/dl LABORATORY SERVICES HCT 39.5 34.9 - 44.4 % [facility] LABORATORY SERVICES MCV 89 81 - 98 fl [facility] LABORATORY SERVICES MCH 29.9 26.7 - 33.3 [facility] pg LABORATORY SERVICES MCHC 33.4 32.1 - 35.9 [facility] gm/dl LABORATORY SERVICES RDW-CV 12.1 11.7 - 14.6 % [facility] LABORATORY SERVICES RDW-SD 39.5 37.6 - 50.3 [facility] fl LABORATORY SERVICES PLT 197Comment: Note 141 - 377 [facility] new reference K[facility] LABORATORY range effective SERVICES 10/10/15 MPV 9.8Comment: Note 9.5 - 12.7 fl [facility] new reference LABORATORY range effective SERVICES 10/10/15 Neutrophils 60.9 % [facility] LABORATORY SERVICES Lymphocytes 22.8 % [facility] LABORATORY SERVICES Monocytes 14.9 % [facility] LABORATORY SERVICES Eosinophils 1.0 % [facility] LABORATORY SERVICES Basophils 0.2 % [facility] LABORATORY SERVICES Immature Grans 0.2 % [facility] LABORATORY SERVICES ABS Neutrophils 2.53 2.20 - 8.85 [facility] K[facility] LABORATORY SERVICES ABS Lymphs 0.95 (L) 1.09 - 3.30 [facility] K[facility] LABORATORY SERVICES ABS Monocytes 0.62 0.1 - 0.8 [facility] K[facility] LABORATORY SERVICES ABS Eosinophils 0.04 0.03 - 0.61 [facility] K[facility] LABORATORY SERVICES ABS Basophils 0.01 0.01 - 0.11 [facility] K[facility] LABORATORY SERVICES ABS Immature Grans 0.01 0 - 0.06 [facility] LABORATORY SERVICES Type of Diff: Automated [facility] LABORATORY SERVICES Specimen Blood specimen (specimen) - Blood Performing Organization Address City/State/ZIP Code Phon e Number [facility] LABORATORY [address] [place] [address] SERVICES SSB ANTIBODIES BY PATRICK (11/11/2015 15:18 EST) Pathologist Sig nature SSB Antibody 2.5 <20 Units [facility] Comment: LABORATORY SERVICES Negative: <20 Units Weak Positive: 20 - 29 Units Moderate Positive: 40 - 80 Units Strong Positive: >80 Units The following results were obtained with the [employer] NTA SS-B PATRICK. SS-B values obtained with different manufacturers'assay met hods may not be used interchangeably. The magnitude of the re ported IgG levels cannot be correlated to an endpoint titer. Specimen Blood specimen (specimen) - Blood Performing Organization Address [facility] Phon e Number [facility] LABORATORY [address] [place] [address] SERVICES SSA ANTIBODIES BY PATRICK (11/11/2015 15:18 EST) Pathologist Sig nature SSA Antibody 2.2 <20 Units [facility] Comment: LABORATORY SERVICES Negative: <20 Units Weak Positive: 20 - 29 Units Moderate Positive: 40 - 80 Units Strong Positive: >80 Units The following results were obtained with the [employer] NTA Lite SS-A PATRICK. SS-A values obtained with different manufacturers' ass ay methods may not be used interchangeably. The magnitude of the reported Ig G levels cannot be correlated to an endpoint titer. Specimen Blood specimen (specimen) - Blood Performing Organization Address [facility] Phon e Number [facility] LABORATORY [address] [place] [address] SERVICES RHEUMATOID FACTOR (11/11/2015 15:18 EST) Pathologist Sig nature Rheumatoid Factor <20 <20 IU/ml [facility] LABO RATORY SERVICES Specimen Blood specimen (specimen) - Blood Performing Organization Address [facility] Phon e Number [facility] LABORATORY [address] [place] [address] SERVICES SYPHILIS SEROLOGY (11/11/2015 15:18 EST) Syphilis Serology NegativeComment: [facility] Reference Range: LABORATORY SERVICES Negative Specimen Blood specimen (specimen) - Blood Performing Organization Address [facility] Phon e Number [facility] LABORATORY [address] [place] [address] SERVICES LYME AB (11/11/2015 15:18 EST) Pathologist Sig nature Lyme AB NegativeComment: [facility] Reference Range: LABORATORY SERVICES Negative Specimen Blood specimen (specimen) - Blood Performing Organization Address [facility] Phon e Number [facility] LABORATORY [address] [place] [address] SERVICES ANGIOTENSIN CONVERTING ENZYME (SB) (11/11/2015 15:18 EST) Angiotensin 28 8 - 53 U/L [facility] Converting [facility] Comment: [facility] LAB[facility]ORY Performed by: [facility] [place] [facility], [address], [place], [place] [address], Chairman Ceo: Christine Jackson, Ph.D. Specimen Blood specimen (specimen) - Blood Performing Organization Address City/[facility]/ZIP Code Phon e Number [facility] LABORATORY [address] [place] [address] SERVICES (ABNORMAL) SED. RATE:WESTERGREN (11/11/2015 15:18 EST) Pathologist Sig nature Sed. Rate Westergren 22 (H) 0 - 20 mm/hr [facility] LABORATORY SERVICES Specimen Blood specimen (specimen) - Blood Performing Organization Address City/State/ZIP Code Phon e Number [facility] LABORATORY [address] [place] [address] SERVICES VITAMIN B12 (11/11/2015 15:18 EST) Pathologist Sig nature Vitamin B-12 451 211 - 911 pg/ml [facility] LABORATORY SERVICES Specimen Blood specimen (specimen) - Blood Performing Organization Address City/[facility]/ZIP Code Phon e Number [facility] LABORATORY [address] [place] [address] SERVICES BUN (11/11/2015 15:18 EST) Pathologist Sig nature BUN 10 10 - 26 mg/dl [facility] LABORATO RY SERVICES Specimen Blood specimen (specimen) - Blood Performing Organization Address City/[facility]/ZIP [facility] Phon e Number [facility] LABORATORY [address] [place] [address] SERVICES FOLATE (11/11/2015 15:18 EST) Pathologist Sig nature Folate 15.9 2.8 - 18.0 ng/ml [facility] Comment: LABORATORY SERVICES Deficient: ??Less than 3.4 ng/mL Indeterminate: ??3.4-5.4 ng/mL Normal: ??Greater than 5.4 ng/mL Specimen Blood specimen (specimen) - Blood Performing Organization Address City/[facility]/ZIP Code Phon e Number [facility] LABORATORY [address] [place] [address] SERVICES CREATININE (11/11/2015 15:18 EST) Creatinine 0.57 0.52 - 1.04 [facility] mg/dl LABORATORY SERVICES GFR, Calculated 127 >60 [facility] Comment: ml/min/1.73m2 LABORATORY eGFR calculated using CKD-EPI equation for SERVICES non Americans. Multiply eGFR by 1.16 for Americans. Specimen Blood specimen (specimen) - Blood Performing Organization Address City/[facility]/ZIP Code Phon e Number [facility] LABORATORY [address] [place] [address] SERVICES (ABNORMAL) C REACTIVE PROTEIN (11/11/2015 15:18 EST) C Reactive Protein 14.9 (H) <10.0 mg/L [facility] Comment: LABORATORY SERVICES Note units change to mg/L. Values will be 10 fold higher than with previous units of mg/dl. Specimen Blood specimen (specimen) - Blood Performing Organization Address [facility]/ZIP Code Phon e Number [facility] LABORATORY [address] [place] [address] SERVICES ANTI NUCLEAR ANTIBODY (11/11/2015 15:18 EST) Anti Nuclear Ab Positive at 40 0 - 40 Dils [facility] dils, titer to LABORATORY SERVICES follow. Specimen Blood specimen (specimen) - Blood Performing Organization Address [facility]/ZIP [facility] Phon e Number [facility] LABORATORY [address] [place] [address] SERVICES documented in this encounter Visit Diagnoses Diagnosis Optic neuritis - Primary Optic neuritis, unspecified documented in this encounter Care Teams Caul Fat Puller Relationship Specialty Start Date End Date Jaime Guadarrama PA PCP - General 11/06/15 [address], [place] [address] documented as of this encounter
--- OUTSIDE RECORDS SUMMARY | 2022-04-08 16:00 | XMS_ITS | Encounter Summary ---
:1985 Author Organization [facility] Address [address] [place] [id number] Care Team Providers Name Role Phone Julia Mcdowell MD Primary Care Provider [phone] Reason for Visit Reason Comments Eye Problem Encounter Details Date Type Department Care Team Description 10/02/2015 Hospital Encounter [facility] Yola Squires Irritation of right Urgent Care - Yolie Campbell PA-C eye (Primary Dx) [address] Yolie [address] [phone] [place] [address] Social History Tobacco Use Types Packs/Day Years Used Date Never Smoker Smokeless Tobacco: Never Used Alcohol Use Standard Drinks/Week Comments Yes 3 (1 standard drink = 0.6 oz pure alcoho l) Sex Assigned at Date Recorded Not on file documented as of this encounter Last Filed Vital Signs Vital Sign Reading Time Taken Comments Blood Pressure 138/67 10/02/2015 1242 EST Pulse 67 10/02/2015 1242 EST Temperature 36.4 ??C (97.6 ??F) 10/02/2015 1242 EST Respiratory Rate 16 10/02/2015 1242 EST Oxygen Saturation - - Inhaled Oxygen Concentration - - Weight - - Height - - Body Mass Index - - documented in this encounter Discharge Diagnoses Diagnosis H57.8 Other specified disorders of eye a nd adnexa-H57.8[ICD-10-CM] documented in this encounter Discharge Instructions Yola Iyer PA-C - 10/02/2015 Do not hesitate to go immediately to the emergency room if you have a sudden worsening in pain,change in vision or other very worrisome change. You will otherwise follow up with Dr. Price tomorrow. documented in this encounter Medications at Time of Discharge Medication Sig Dispensed Refills Start Date End Date Multivitamins with Take 1 Tab by mouth 0 Minerals Tab daily. Reported on 09/19/2016 norgestimate-ethinyl Take 1 Tab by mouth 0 estradiol (ORTHO daily. TRI-CYCLEN, TRI-SPRINTEC) 0.18/0.215/0.25 mg-35 mcg (28) tablet erythromycin (ROMYCIN) 5 1 cm 3 times daily 0 11/06/2015 mg/gram (0.5 %) ophthalmic ointment documented as of this encounter Discharge Disposition Disposition Code Departure Means Destination Comments Home or Self Care Discharged by Yola DUENAS no nursing instruc tions given documented in this encounter ED Notes Yola Squires PA-C - 10/02/2015 1930 EST DOS: 10/02/2015 Chief Complaint Patient presents with ??? Eye Problem The patient is a 30 y.o. female who presents today with Eye Problem HPI Comments: This is a 30-year-old female patient with no significant past medical history who presents complaining of right eye irritation over the last 1 week. She was seen by her PCP several days ago and diagnosed with conjunctivitis. She was prescribed erythromycin ointment to be used 3 times francis y. She states that she has been using it daily albeit sometimes BID and was improving. She noted worsening yesterday including an aching pain in right eye and new photophobia. She notes a mild crusty and gooey discharge from both eye sin am, much worse on the right. erythromycin not helping at this point. The history is provided by the patient. Eye Problem Associated symptoms: no headaches, no numbness and no weakness Review of Systems Constitutional: Negative for fever, chills, activity change, appetite change and fatigue. HENT: Negative for congestion, ear pain, rhinorrhea and sore throat. Respiratory: Negative for cough and shortness of breath. Cardiovascular: Negative for chest pain and palpitations. Musculoskeletal: Negative for neck pain. Skin: Negative for color change and rash. Neurological: Negative for dizziness, syncope, weakness, numbness and headaches. Psychiatric/Behavioral: Negative for behavioral problems. The patient is not nervous/anxious. No current facility-administered medications for this encounter. Current Outpatient Prescriptions Medication Sig Dispense Refill ??? erythromycin (ROMYCIN) 5 mg/gram (0.5 %) ophthalmic ointment 1 cm 3 times daily ??? Multivitamins with Minerals Tab Take 1 Tab by mouth daily. ??? norgestimate-ethinyl estradiol (ORTHO TRI-CYCLEN, TRI-SPRINTEC) 0.18/0.215/0.25 mg-35 mcg (28) tablet Take 1 Tab by mouth daily. No Known Allergies Patient Active Problem List Diagnosis Date Noted ??? History of recurrent urinary tract infection 09/11/2012 Past Medical History Diagnosis Date ??? History of recurrent UTIs 09/11/2012 ??? E. coli UTI History Substance Use Topics ??? Smoking status: Never Smoker ??? Smokeless tobacco: Never Used ??? Alcohol Use: 1.8 oz/week 3 Glasses of wine per week History reviewed. No pertinent family history. BP 138/67 mmHg Pulse 67 Temp(Src) 97.6 ??F (36.4 ??C) (Temporal) Resp 16 Physical Exam Constitutional: She is oriented to person, place, and time. She appears well- developed and well-nourished. No distress. HENT: Head: Normocephalic and atraumatic. Eyes: EOM are normal. Pupils are equal, round, and reactive to light. Right eye exhibits no chemosis, no discharge, no exudate and no hordeolum. No foreign body present in the right eye. Left eye exhibits no chemosis, no discharge, no exudate and no hordeolum. No foreign body present in the left eye. Right conjunctiva is injected (mild). Left conjunctiva is injected (very mild). Tetracaine instilled with no change in mild aching pain. No uptake on fluorescein staining. Cardiovascular: Normal rate, regular rhythm and normal heart sounds. Pulmonary/Chest: Effort normal and breath sounds normal. No respiratory distress. Neurological: She is alert and oriented to person, place, and time. Skin: Skin is warm and dry. No rash noted. Psychiatric: She has a normal mood and affect. Her behavior is normal. Nursing note and vitals reviewed. Consult orders: None PCP: Julia Mcdowell No results found for this visit on 10/02/15. No orders to display Radiology orders: None Imaging Results None No orders to display Procedures Course: A medical screening exam was performed. Disposition: Discharged The patient's pain was managed to an adequate level weighing risk vs. benefit of further medications. Upon departure from [facility], the patient's pain was 4 on a zero to ten scale. Condition at departure from the [facility] : Stable Final diagnoses: Irritation of right eye Case discussed with Dr. Price who has concern for possible viral etiology of conjunctivitis v iritis v other etiology for symptoms and will see the patient in ophthalmology clinic tomorrow. She may continue erythromycin ointment for its soothing properties as well and will follow up with Dr. Price tomorrow. She expresses understanding that she should go to the emergency department for any acute worsening in the meantime. Dr. Traci Malhotra was available for consultation during my care of this patient. [facility] 10/02/2015 19:30 Ritu Garcia RN - 10/02/2015 1306 EST Left eye yellow drainage started today. No itchiness or visual changes. Ritu Garcia, RN - 10/02/2015 1302 EST Pt was seen by [facility] on 09/26 for right eye conjunctivitis, Erythromycin ordered . It had improved butdiscomfort occurred yesterday which she hasn't had. Some yellow discharge noted. documented in this encounter Plan of Treatment Not on filedocumented as of this encounter Visit Diagnoses Diagnosis Irritation of right eye - Primary Other ill-defined disorder of eye documented in this encounter Historical Medications This list may reflect changes made after this encounter. Medication Sig Dispensed Refills Start Date End Date erythromycin (ROMYCIN) 5 1 cm 3 times daily 0 11/06/2015 mg/gram (0.5 %) ophthalmic ointment added in this encounter Care Teams [employer] Counsel[employer] Relationship Specialty Start Date End Date Julia Mcdowell MD PCP - General 03/14/15 11/05/15 documented as of this encounter
--- OUTSIDE RECORDS SUMMARY | 2022-04-08 16:00 | XMS_ITS | Encounter Summary ---
:1985 Author Organization [facility] Address [address] [place] [address] Care Team Providers Name Role Phone Jaime Guadarrama Primary Care Provider Reason for Visit Reason Comments Sore Throat onset 2 day ago, fever, tmax 103 Encounter Details Date Type Department Care Team Description 08/30/2019 Hospital Encounter [facility] [place] Sore throat (Primary Dx); Urgent Care - Yolie Campbell PA-C Acute suppurative tonsillitis [address] Yolie Schultz [address] [place] [address] [place] [phone] Social History Tobacco Use Types Packs/Day Years Used Date Never Smoker Smokeless Tobacco: Never Used Alcohol Use Standard Drinks/Week Comments Yes 3 (1 standard drink = 0.6 oz pure alcoho l) Sex Assigned at Date Recorded Not on file documented as of this encounter Last Filed Vital Signs Vital Sign Reading Time Taken Comments Blood Pressure 109/55 08/30/2019 0816 EST Pulse 99 08/30/2019 0816 EST Temperature 38 ??C (100.4 ??F) 08/30/2019 0816 EST Respiratory Rate 16 08/30/2019 0816 EST Oxygen Saturation - - Inhaled Oxygen [...] documented as of this encounter Discharge Instructions Yola Iyer PA - 08/30/2019 As we discussed, your sore throat should be getting better soon. In the mean time, some of the best things you can do to help get yourself on the road to recovery are getting rest, drinking plenty of fluids, taking warm tea with honey, or doing salt water gargles. You should return immediately to the clinic or go right to the ER if you experience any shortness ofbreath, your symptoms become markedly worse, change or are concerning to you in any way. If you have a fever, you should take tylenol 1000mg (two extra strength tabs) every 4-6 hours with adaily maximum of 4 doses or 4000mg, ibuprofen 600 mg (three regular tabs) every 6 - 8 hours or alternate medications, taking one or the other every 3 hours. AttachmentsThe following attachments cannot be sent through Care Everywhere. Tonsillitis (Moroccan)documented in this encounter Medications at Time of Discharge Medication Sig Dispensed Refills Start Date End Date Multivitamins with Take 1 Tab by mouth 0 Minerals Tab daily. Reported on 09/19/2016 norgestimate-ethinyl Take 1 Tab by mouth 0 estradiol (ORTHO daily. TRI-CYCLEN, TRI-SPRINTEC) 0.18/0.215/0.25 mg-35 mcg (28) tablet amoxicillin-clavulanate Take 1 Tab by mouth 14 Tab 0 09/201809/06/2019 (AUGMENTIN) 875-125 mg 2 times daily for 7 per tablet days. documented as of this encounter Ordered Prescriptions Prescription Sig Dispensed Refills Start Date End Date amoxicillin-clavulanate Take 1 Tab by mouth 14 Tab 0 09/201809/06/2019 (AUGMENTIN) 875-125 mg per 2 times daily for 7 tablet days. documented in this encounter Discharge Disposition Disposition Code Departure Means Destination Home or Self Assisted documented in this encounter ED Notes Yola Squires PA - 08/30/2019 0843 EST DOS: 08/30/2019 Chief Complaint Patient presents with ??? Sore Throat onset 2 day ago, fever, tmax 103 The patient is a 34 y.o. female who presents today with Sore Throat (onset 2 day ago, fever, tmax 103) 34-year-old female patient with awful sore throat, painful swallowing over the last 2 to 3 days. Shehas headache, adenopathy, nausea but no vomiting. No cough or earache. Pharyngitis Location: Generalized Quality: Aching Severity: Moderate Duration: 2 days Timing: Constant Progression: Worsening Associated symptoms: adenopathy and fever Associated symptoms: no abdominal pain, no chest pain, no chills, no cough, no ear pain, no headaches, no neck stiffness, no night sweats, no plugged ear sensation, no postnasal drip, no rash, no rhinorrhea and no shortness of breath Review of Systems Constitutional: Positive for activity change, fatigue and fever. Negative for appetite change, chills and night sweats. HENT: Positive for sore throat. Negative for congestion, ear pain, postnasal drip and rhinorrhea. Respiratory: Negative for cough and shortness of breath. Cardiovascular: Negative for chest pain and palpitations. Gastrointestinal: Negative for abdominal pain. Musculoskeletal: Negative for gait problem, neck pain and neck stiffness. Skin: Negative for color change and rash. Neurological: Negative for dizziness, weakness, light-headedness, numbness and headaches. Hematological: Positive for adenopathy. No current facility-administered medications for this encounter. Current Outpatient Medications Medication Sig Dispense Refill ??? amoxicillin-clavulanate (AUGMENTIN) 875-125 mg per tablet Take 1 Tab by mouth 2 times daily for 7 days. 14 Tab 0 ??? Multivitamins with Minerals Tab Take 1 Tab by mouth daily. Reported on 09/19/2016 ??? norgestimate-ethinyl estradiol (ORTHO TRI-CYCLEN, TRI-SPRINTEC) 0.18/0.215/0.25 mg-35 mcg (28) tablet Take 1 Tab by mouth daily. No Known Allergies Patient Active Problem List Diagnosis Date Noted ??? 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 Optic neuritis 11/11/2015 ??? Photopsia 11/10/2015 ??? 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 History of recurrent urinary tract infection 09/11/2012 Past Medical History: Diagnosis Date ??? E. coli UTI ??? Eye trauma 2009 Baseball hit above eye ??? History of recurrent UTIs 09/11/2012 Social History Tobacco Use ??? Smoking status: Never Smoker ??? Smokeless tobacco: Never Used Substance Use Topics ??? Alcohol use: Yes Alcohol/week: 3.0 standard drinks Types: 3 Glasses of wine per week ??? Drug use: No Family History Problem Relation Age of Onset ??? Hypertension Mother ??? Hypertension Father ??? Cataract Maternal Grandmother ??? Blindness Neg Hx ??? Glaucoma Neg Hx ??? Macular Degeneration Neg Hx ??? Stroke Neg Hx ??? Thyroid Disease Neg Hx ??? Tuberculosis Neg Hx ??? Diabetes Neg Hx ??? Cancer Neg Hx BP 109/55 Pulse 99 Temp 100.4 ??F (38 ??C) (Tympanic) Resp 16 Physical Exam Constitutional: She is oriented to person, place, and time. She appears well- developed and well-nourished. No distress. HENT: Head: Normocephalic and atraumatic. Right Ear: External ear normal. Left Ear: External ear normal. Nose: Nose normal. Mouth/Throat: Mucous membranes are normal. Oropharyngeal exudate, posterior oropharyngeal edema and posterior oropharyngeal erythema present. Eyes: Pupils are equal, round, and reactive to light. Conjunctivae and EOM are normal. Neck: Normal range of motion. Neck supple. Pulmonary/Chest: Effort normal and breath sounds normal. No respiratory distress. She has no wheezes. She has no rales. Neurological: She is alert and oriented to person, place, and time. Skin: Skin is dry. Psychiatric: She has a normal mood and affect. Nursing note and vitals reviewed. Consult orders: None PCP: Jaime Guadarrama Results for orders placed or performed during the hospital encounter of 08/30/19 RAPID STREP Result Value Ref Range Rapid Strep A Screen Negative Negative MONO-TEST Result Value Ref Range Lafayette Test Negative Negative COMPLETE BLOOD COUNT AND DIFFERENTIAL Result Value Ref Range WBC 13.42 (H) 4.00 - 12.40 K/cmm RBC 4.17 3.86 - 5.04 M/cmm Hemoglobin 12.2 11.6 - 15.2 gm/dL HCT 36.7 34.9 - 44.4 % MCV 88 81 - 98 fl MCH 29.3 26.7 - 33.3 pg MCHC 33.2 32.1 - 35.9 gm/dL RDW-CV 13.1 <14.7 % RDW-SD 41.0 <50.4 fl PLT 231 141 - 377 K/cmm MPV 9.0 (L) 9.5 - 12.7 fl Neutrophils 87.1 % Lymphocytes 6.3 % Monocytes 6.4 % Eosinophils 0.1 % Basophils 0.1 % Immature Grans Absolute Neutrophils 11.70 (H) 2.20 - 8.85 K/cmm Absolute Lymphocytes 0.84 (L) 1.09 - 3.30 K/cmm Absolute Monocytes 0.86 (H) 0.10 - 0.80 K/cmm Absolute Eosinophils 0.01 (L) 0.03 - 0.61 K/cmm Absolute Basophils 0.01 0.01 - 0.11 K/cmm Absolute Immature Grans Type of Differential: Auto Radiology orders: None Imaging Results None No orders to display Procedures URGENT CARE COURSE A medical screening exam was performed. ASSESSMENT AND PLAN Final diagnoses: Acute suppurative tonsillitis Plan: tonsillitis is impressive and exudate is copious, cbc with diff supports bacterial etiology will treat with augmentin, supportive measures such as fluids, honey, salt water gargles, otc analgesics. F/u with PMD, return for worsening, severe pain, high fever, inability to take po or any concerns. Dr. Traci Malhotra was available for consultation during my care of this patient. DISPOSITION: Discharged The patient's pain was managed to an adequate level weighing risk vs. benefit of further medications. Upon departure from [facility], the patient's pain was 3 on a zero to ten scale. Any further pain treatment will be at the discretion of the provider following up with the patient based on their clinical assessment . Condition at departure from the [facility] : Stable MDM 08/30/2019 12:39 Emily Portillo RN - 08/30/2019 0826 EST Presents with 48 hrs of sore throat , she developed a fever yesterday. She took Tylenol yesterday that did not respond to the Tylenol. Pt denies throat tightness or SOB. documented in this encounter Plan of Treatment Not on filedocumented as of this encounter Procedures Procedure Name Priority Date/Time Associated Diagnosis Comme nts MONO-TEST STAT 08/30/2019 9:13 Acute suppurative Results for this EST tonsillitis procedure are i n the results section. COMPLETE BLOOD COUNT STAT 08/30/2019 9:13 Acute suppurative Results for this AND DIFFERENTIAL EST tonsillitis procedure a re in the results section. GROUP A STREP CULTURE Routine 08/30/2019 8:36 Sore throat Res ults for this EST procedure are i n the results section. RAPID STREP Routine 08/30/2019 8:35 Sore throat Results for this EST procedure are i n the results section. documented in this encounter Results (ABNORMAL) COMPLETE BLOOD COUNT AND DIFFERENTIAL (08/30/2019 9:13 EST) WBC 13.42 (H) 4.00 - 12.40 [facility] K/m [facility] RBC 4.17 3.86 - 5.04 [facility] M/formerly [facility]ATORY [facility] Hemoglobin 12.2 11.6 - 15.2 [facility] gm/dL [facility] HCT 36.7 34.9 - 44.4 % [facility] MCV 88 81 - 98 fl [facility] LABOR[facility]ORY [facility] MCH 29.3 26.7 - 33.3 pg [facility]ORATORY SERVICES [facility] MCHC 33.2 32.1 - 35.9 [facility] gm/dL [facility] RDW-CV 13.1 <14.7 % [facility] RDW-SD 41.0 <50.4 fl [facility] PLT 231 141 - 377 K/m [facility] MPV 9.0 (L) 9.5 - 12.7 fl [facility] Neutrophils 87.1 % [facility] Lymphocytes 6.3 % [facility] Monocytes 6.4 % [facility] Eosinophils 0.1 % [facility] Basophils 0.1 % [facility] Immature Grans [facility] Absolute Neutrophils 11.70 (H) 2.20 - 8.85 [facility] K/formerly [facility] Absolute Lymphocytes 0.84 (L) 1.09 - 3.30 [facility] K/formerly [facility] Absolute Monocytes 0.86 (H) 0.10 - 0.80 [facility] K/formerly [facility] Absolute Eosinophils 0.01 (L) 0.03 - 0.61 [facility] K/formerly [facility]AT[facility] Absolute Basophils 0.01 0.01 - 0.11 [facility] K/formerly [facility] Absolute Immature [facility]AT[facility] Type of Differential: Auto [facility]ATORY SERVICES [facility] Specimen Blood - Venous blood (substance) Performing Organization Address City/[facility]/ZIP Code Phon e Number [facility] [address] [place] [address] SERVICES [facility] MONO-TEST (08/30/2019 9:13 EST) Pathologist Sig nature Lafayette Test Negative Negative [facility] LABORATOR Y SERVICES [facility] Specimen Blood - Venous blood (substance) Performing Organization Address City/[facility]/ZIP Code Phon e Number [facility] [address] [place] [address] SERVICES [facility] GROUP A STREP CULTURE (08/30/2019 8:36 EST) Organism ID No Group A Beta [facility] Hemolytic Streptococcus LABORATORY SERVIC ES isolated Specimen Swab - Entire oropharynx and/or hypophar ynx and/or larynx (body structure) Performing Organization Address City/[facility]/ZIP Code Phon e Number [facility] [address] [place] [address] SERVICES RAPID STREP (08/30/2019 8:35 EST) Pathologist Sig nature Rapid Strep A Screen Negative Negative [facility] LABORATORY SERVICES [facility] Specimen Swab - Entire oropharynx and/or hypophar ynx and/or larynx (body structure) Performing Organization Address City/State/ZIP Code Phon e Number [facility] [address] [place] [address] SERVICES [facility] documented in this encounter Visit Diagnoses Diagnosis Sore throat - Primary Acute pharyngitis Acute suppurative tonsillitis Acute tonsillitis documented in this encounter Discontinued Medications Medication Sig Discontinue Reason Start Date End Date albendazole (ALBENZA) 200 Take 2 Tabs by Therapy completed 11/11/19 16 08/30/2019 mg tablet mouth once for 1 dose. Repeat in 2 weeks documented as of this encounter Care Teams Acquisition Analyst Relationship Specialty Start Date End Date Jaime Guadarrama PA PCP - General 11/06/15 [address] [place], [place] [id number] documented as of this encounter
--- OUTSIDE RECORDS SUMMARY | 2022-04-08 16:00 | XMS_ITS | Encounter Summary ---
:1985 Author Organization [facility] Address [address] [place] [address] Care Team Providers Name Role Phone Jaime Guadarrama Primary Care Provider Reason for Visit Reason Onset Date Comments Eye Problem 11/09/2015 seen for photopsia o n Saturday with SMP - complaining of worsening symptoms. Lt eye blind spot larger than it was on Saturday. Encounter Details Date Type Department Care Team Description 11/09/2015 Telephone [facility] Oniel Peralta ye Problem (seen for Ophthalmology - Avila Clifton MD photopsia on Saturday [place] [address] [place] with SMP - [address] [facility] complaining of [place], [place] [id number] [place] [address], [place] worsening symptoms. [phone] Pavilion, Level 5 Lt eye blind spot [place] [phone] Saturday.) [phone] (Wo rk) Social History Tobacco Use Types [...] this encounter Miscellaneous Notes Telephone Encounter - Sherley Cruz - 11/14/2015 1358 EST Pt arrived for her 2.12.16 appt w/ [facility] elephone Encounter - Kelli Joseph RN - 11/09/[address] Peralta he advises pt be seen within the next couple days by retina. Gave information toScone, she will call to schedule. As of 11/09/2015 14:25: Nature of problem? Pt states worsening symptoms since Saturday. Was seen for spot in vision and has gotten a little bigger. If holds hand out and can't see three finger's width of her hand. Still in samespot in Lt eye. No flashes or floaters. No loss of peripheral vision. Could come in today but has another appointment at 4pm but can miss it if need be. Onset and Duration? Since Saturday Is this an injury? no Pain? No Have you recently had eye surgery? No Are you having flashes/and or floaters? No Any sensitivity to light? no Any loss of vision/curtain/darkness/veil? no Any change in vision/double vision/blurred? no Any redness? no Do you wear contact lenses? No Who is your usual eye doctor? Dr. Peralta Phone Number of Eye Doctor (if not FACP) Any other pertinent information? No (Please remember that a physician must approve if you are telling the patient to wait for an appointment.) Where are you now? (i.e. home/close to our office/out of town, etc.) NA If the MD needs to see you today, how long would it take you to get to our office? NA What is the best phone number for us to speak to you in the next two hours? [phone], can leave a message (VERIFY THE PHONE NUMBERS REGARDLESS OF WHAT IS IN THE SYSTEM.) (Please remember to ask the MD what he/she needs from the paper chart.) documented in this encounter Plan of Treatment Not on filedocumented as of this encounter Visit Diagnoses Not on filedocumented in this encounter Care Teams Display Designer Outside Relationship Specialty Start Date End Date Jaime Guadarrama PA PCP - General 11/06/[address] [place] [id number] documented as of this encounter
--- OUTSIDE RECORDS SUMMARY | 2022-04-08 16:00 | XMS_ITS | Encounter Summary ---
:1985 Author Organization [facility] Address [address] [place] [address] Care Team Providers Name Role Phone Jaime Guadarrama Primary Care Provider Reason for Visit Other (Routine) - Closed Specialty Diagnoses / Procedures Referred By Contact Refer red To Contact Diagnoses Visual field defect Photopsia Will Hall MD Procedures ELECTRORETINOGRAM (ERG) [address] [facility] [address] [place] [address] Referral ID Status Reason Start Date Expiration Date Visits Requ ested Visits Authorized [id number] Closed 12/05/2015 1 1 Encounter Details Date Type Department Care Team Description 12/20/2015 Hospital Encounter [facility] Unknown, P MD kushal Visual field defect Neurophysiology - Main Trisha Scherer MD (Primary Dx) [place] [address] [place] [address] Social History Tobacco Use Types Packs/Day Years [...] Code Departure Means Destination Home or Self Residential documented in this encounter Procedure Notes Humphrey Donahue MD PhD - 12/20/2015 1443 EDTProcedure(s): EEG- TRANSCRIBED ORDER Electroretinogram Report Referring Physician: Will Pride Study Number: [id number] Clinical Indication: Patient with a dark spot in central vision on the left eye. Patient condition: Alert and cooperative Visual Acuity: Left 20/20 Right 20/20 Medications Administered: proparacaine 0.5% tropicamide 1% Technical Description: The patient's eye to be tested is numbed, dialted and dark adapted for 30 minutes in a dark room. A DTL fiber electrode is placed in the eye referenced to Fz. A Ganzfeld stimulator is used for all flash stimuli. In the dark adapted state a very dim flash is used to elicit a purerod response. A bright flash is used to elicit a mixed elijah and cone response and he oscillatory potentials. The eye is then light adapted for 10 minutes and the bright flash elicits a pure cone response and thirty Hz flicker stimulus also provides a pure cone response. Filter settings are: LFF 0.3Hz, HFF 500Hz Findings: See data in scans in PRISM Impression: Electroretinogram findings are entirely normal in the dark and light adapted states. This does not exclude a small area of retinal dysfunction as it is a test of entire retina. Humphrey Donahue MD, PhD ABPN Certified Clinical Neurophysiology Pattern Visual Evoked Potential Report Referring Physician: Will Pride Study Number: [id number] Clinical Indication: Patient with a dark spot in central vision on the left eye. Patient condition: Alert and cooperative Visual Acuity: Left 20/20 Right 20/20 Technical Description: Independent monocular stimulation is performed using a pattern reversal stimulus with standard check size of 27 minutes. Filter settings are: LFF 1 Hz, HFF 1,000 Hz. At least twoindependent averages are obtained. Eight recording channels are employed including Oz-Fz as well as O1 and O2 and other lateral posterior channels. Findings: Wave Left (msec) Right (msec) L.D. (msec) P100 99.0 101.5 2.5 L.D. = Latency Difference Impression: The pattern responses are entirely normal in latency and there is no hemispheric asymmetry to suggest a retrochiasmatic process. The patient reported to the technologist that there was a dark spot just to the left of the monitor. The monitor covers the central 11?? of vision. Humphrey Donahue MD, PhD ABPN Certified Clinical Neurophysiology documented in this encounter Plan of Treatment Not on filedocumented as of this encounter Procedures Procedure Name Priority Date/Time Associated Diagnosis Comme nts EEG - SCANNED 12/23/2015 11:28 EDT EEG - SCANNED 12/23/2015 11:26 EDT documented in this encounter Visit Diagnoses Diagnosis Visual field defect - Primary Visual field defect, unspecified documented in this encounter Orders Procedures Count Last Ordered Date First Ordered Date EEG - SCANNED 2 12/23/2015 documented in this encounter Care Teams School Bus Driver/Custodian Relationship Specialty Start Date End Date Jaime Guadarrama PA PCP - General 11/06/[address] [place] [id number] documented as of this encounter
--- OUTSIDE RECORDS SUMMARY | 2022-04-08 16:00 | XMS_ITS | Encounter Summary ---
:1985 Author Organization [facility] Address [address] [place] [address] Care Team Providers Name Role Phone Jaime Guadarrama Primary Care Provider Reason for Visit Reason Comments Eye Problem pt reports blind spot in lef t eye seems to be larger. Pt has MRI scheduled for tomorrow. Last seen by Dr. Hunt for Optic neuritis left eye with VFD 11/16/15. No rec ent injury to eye paer patient. Encounter Details Date Type Department Care Team Description 11/25/2015 Office Visit [facility] Renaldo Francisco, Ophthalmology - [address], [place] [address] (Wo rk) Social History Tobacco [...] defects- H53.40[ICD-10-CM] H46.9 Unspecified optic neuritis-H46.9[I CD-10-CM] documented in this encounter Progress Notes Ashanti Moss OTA - 11/25/2015 1221 EST Chief Complaint Patient presents with ??? Eye Problem pt reports blind spot in left eye seems to be larger. Pt has MRI scheduled for tomorrow. Last seen by Dr. Hunt for Optic neuritis left eye with VFD 11/16/15. No recent injury to eye paer patient. HPI The patient is a 30 y.o. female presents for EV with c/o of larger blind spot in the left eye. Established patient of Dr. Hall, evaluated for visual field defect with presumptive diagnosis of optic neuritis. Denies eye pain, decrease in visual acuity or dyschromotopsia. MRI orbits negative, with MRIbrain scheduled for tomorrow. Last seen by Dr. Hall for Optic Neuritis. No eye pain. Recent HbA1c: No results found for: HGBA1C Right Eye: NL Left Eye: Flashes, NL Visual Aid: Glasses Current Rx Age 4 years Location: Left eye Pain: Quality: Blurry Severity: Moderate Duration: Weeks Timing: Constant Lasts: Continuous Context: ON eval/VF defect-Optic Neuritis left eye, pt feels is larger than previously seen by Dr. Hall on 11/16/15 Modifying factors: glasses Associated Signs & Symptoms: same blind spot in vision left eye- no changes. Rare flashes lefteye Attestation: ROS Constitutional: ENT/Mouth NL Cardiovascular: NL Respiratory: NL Gastrointestinal: NL Genitourinary: NL Musculoskeletal: NL Integumentary: Neurologic: NL Psychiatric: Depression (hx of) Endocrine: NL Hematologic: Immunologic: Drug Allergy Public Relations Professional: Exposures: Other: Attestation: Allergies include: Review of patient's allergies indicates no known allergies. Patient Active Problem List Diagnosis ??? History of recurrent urinary tract infection ??? Photopsia ??? Visual field defect ??? Optic neuritis Outpatient Prescriptions Marked as Taking for the 11/25/15 encounter (Office Visit) with Renaldo Francisco MD Medication Sig ??? albendazole (ALBENZA) 200 mg tablet Take 2 Tabs by mouth once for 1 dose. Repeat in 2 weeks ??? Multivitamins with Minerals Tab Take 1 Tab by mouth daily. ??? norgestimate-ethinyl estradiol (ORTHO TRI-CYCLEN, TRI-SPRINTEC) 0.18/0.215/0.25 mg-35 mcg (28) tablet Take 1 Tab by mouth daily. Base Eye Exam Visual Acuity (Snellen - Linear) Right Left Dist sc 20/40 -1 20/40 Dist ph sc 20/25 20/30 Tonometry (Applanation, 11:52) Right Left Pressure 16 16 Pupils APD Right Left +2 Visual Deshpande Right Left Result Full Full Extraocular Movement Right Left Result Full, Ortho Full, Ortho Neuro/Psych Oriented x3: Yes Mood/Affect: Normal Additional Tests Amsler Right Left Amsler Normal Missing lines Color No red desaturation Slit Lamp and Fundus Exam Slit Lamp Exam Right Left Lids/Lashes Normal Normal Conjunctiva/Sclera White and quiet White and quiet Cornea Clear Clear Anterior Chamber Deep and quiet Deep and quiet Iris flat and round flat and round Lens Clear Clear Refraction Manifest Refraction Sphere Cylinder [place] Dist Right -1.75 +0.25 180 20/20 Left -1.25 +0.25 165 20/25+2 DIAGNOSTIC TESTS: HVF 24-2 Indication: Optic Neuritis Quality: Good Interpretation: Right deferred Left Enlarged blind spot MD -3.75 IMPRESSION & PLAN: Rylie was seen today for eye problem. Diagnoses and all orders for this visit: Visual field defect, stable on HVF 24-2. Acuity, red desaturation normal. Follow up with plan of Callum for tomorrow, 11/16/15, and Dr. Hall on 12/04. Optic neuritis, follow with Dr. Piper as planned on 12/05/15. I have reviewed the patient's past medical, family, social and surgical history. I have also reviewed the patient's medications, allergies, and problem list. I performed my own HPI and have reviewed the tech's ROS as well. I personally completed this exam myself. Renaldo Francisco MD I am scribing for Dr. Renaldo Francisco, while he is personally performing the service. PRANEETH Vargas The patient was instructed to call our office or go to emergency room if worse vision, worse symptoms, or new/other concerns arise. documented in this encounter Plan of Treatment Not on filedocumented as of this encounter Visit Diagnoses Diagnosis Visual field defect - Primary Visual field defect, unspecified Optic neuritis Optic neuritis, unspecified documented in this encounter Eye Exam Visual Acuity (Snellen - Linear) Right eye Left eye Dist sc 20/40 -1 20/40 Dist ph sc 20/25 20/30 Tonometry (Applanation, 11:52) Right eye Left eye Pressure 16 16 Pupils APD Right eye Left eye +2 Visual Deshpande Right eye Left eye Full Full Extraocular Movement Right eye Left eye Full, Ortho Full, Ortho Neuro/Psych Oriented x3: Yes Mood/Affect: Normal Amsler Right eye Left eye Normal Missing lines Color No red desaturation Slit Lamp Exam Right eye Left eye Lids/Lashes Normal Normal Conjunctiva/Sclera White and quiet White and quiet Cornea Clear Clear Anterior Chamber Deep and quiet Deep and quiet Iris flat and round flat and round Lens Clear Clear Manifest Refraction Sphere Cylinder [place] Dist [place] Right eye -1.75 +0.25 180 20/20 Left eye -1.25 +0.25 165 20/25+2 Care Teams Manager Adobe Relationship Specialty Start Date End Date Jaime Guadarrama PA PCP - General 11/06/15 [address] [place] [address] documented as of this encounter
--- OUTSIDE RECORDS SUMMARY | 2022-04-08 16:00 | XMS_ITS | Encounter Summary ---
:1985 Author Organization [facility] Address [address] [place] [id number] Care Team Providers Name Role Phone Jaime Guadarrama Primary Care Provider Reason for Referral (Routine) - Closed Specialty Diagnoses / Procedures Referred By Contact Refer red To Contact Diagnoses Optic neuritis Visual field defect Kamari Gillespie MD Procedures VISUAL FIELD EXAM, [address] [phone] Referral ID Status Reason Start Date Expiration Date Visits Requ ested Visits Authorized [id number] Closed 11/11/2015 1 1 Reason for Visit Reason Comments Eye Problem 1 day f/u photopsia and VF d efect, here today for VF 10-2. No vision changes since yesterday, no pain in either eye. Occasionally flashes in the left eye, first time she saw a flash was this past Saturday. No floaters. Pt hasn't taken bi rth control because she was told it may have something to do with her vis ual issues, but is unclear whether or not she was directed to, I told jose ent she should not discontinue any medication unless directed by a doctor. Encounter Details Date Type Department Care Team Description 11/11/2015 Office Visit [facility] Pedro Gillespie MD Ophthalmology - [address], [address], [address] [place], [place] [phone] (Wo rk) Social History Tobacco Use [...] documented as of this encounter Progress Notes Kamari Gillespie MD - 11/11/2015 1342 EST [facility] OPHTHALMOLOGY November 11, 2015 Will Hall MD [facility] - Ophthalmology [address] [place] [address] RE: HARRISON STEVE : 1985 Dear Will Harrison Steve is a nice lady that I spoke to you over the phone about. She is a 30-year-old that for a number of days has noted a visual field defect temporal to fixation in her left eye. She has beenhaving some photopsias in her same eye and denied pain with eye movement when I went back and questioned her on this post conversation with you She has had a recent upper respiratory tract infection with a sore throat. She does not have any other neurologic symptomatology. Meticulous retinal examination done 2 days in a row fails to reveal any retinal abnormalities. Fluorescein and photos yesterday were also done, which did not reveal any retinal vascular leakage or choroidal leakage. I wondered on the study if the discs were a little bit hot. A visual field defect today shows a definite temporal visual field defect in her left eye today, butthe right eye looks normal. My working diagnosis is optic neuritis lianne given a mild APD that I personally noted I will attempt to get the laboratory and radiologic testing that you recommended over the phone, and we will set up an appointment for her next week. Thank you kindly for seeing this nice young woman. Sincerely, Kamari Gillespie MD 11 20 AM - Kamari Gillespie MD cn Dictation ID: [id number] cc: Will Hall MD, [facility] - Ophthalmology [address] [place] [id number] illKamari batista MD - 11/11/2015 1031 EST Chief Complaint Patient presents with ??? Eye Problem 1 day f/u photopsia and VF defect, here today for VF 10-2. No vision changes since yesterday, no pain in either eye. Occasionally flashes in the left eye, first time she saw a flash was this past Saturday. No floaters. Pt hasn't taken control because she was told it may have something to do with her visual issues, but is unclear whether or not she was directed to, I told patient she should not discontinue any medication unless directed by a doctor. HPI Location: Left eye Pain: 0 - No pain Quality: Blurry Severity: Moderate Duration: Days Timing: Constant Lasts: Continuous Context: No vision changes since yesterday, no pain in either eye. Occasionally flashes in the left eye, first time she saw a flash was this past Saturday. No floaters. Pt hasn't taken control because she was told it may have something to do with her visual issues, but is unclear whether or not she was directed to, I told patient she should not discontinue any medication unless directed by a doctor. Modifying factors: 1 day f/u photopsia and VF defect, here today for VF 10-2. Associated Signs & Symptoms: Visual Fluctuations: Flashes Attestation: Base Eye Exam Visual Acuity (Snellen - Linear) Right Left Dist sc 20/25 -1 20/60 +2 Dist ph sc 20/40+1 Tonometry (Applanation, 10:26) Right Left Pressure 16 17 Pupils Pupils Dark Light React APD Right PERRL 4 3 Brisk None Left PERRL 4 3 Brisk + APD Visual Deshpande Right Left Result Full Full Extraocular Movement Right Left Result Full, Ortho Full, Ortho Neuro/Psych Oriented x3: Yes Mood/Affect: Normal Dilation Both eyes: 1.0% Mydriacyl, 2.5% Phenylephrine @ 10:41 Slit Lamp and Fundus Exam Slit Lamp Exam Right Left Lids/Lashes Normal Normal Conjunctiva/Sclera White and quiet White and quiet Cornea Clear Clear Anterior Chamber Deep and quiet Deep and quiet Iris Round and reactive Round and reactive Lens Clear Clear Impression: 1. Optic neuritis VISUAL FIELD EXAM, INTERMEDIATE 2. Visual field defect VISUAL FIELD EXAM, INTERMEDIATE Assess/Plan: VF defect left eye VF done today Optic Neuritis left eye- suspected + APD left eye Will set up appt with Dr Hall for ON eval./VF defect next week Labs ordered. This office note has been dictated. I, Dr. Gillespie, have performed my own HPI and reviewed the tech's ROS. I have also reviewed the patient's past medical, family, social and surgical history, as well as the patient's medications, allergies, and problem list. I am scribing for Dr. Kamari Gillespie MD while he is personally performing the service. IVON Pro (Scribe) documented in this encounter Plan of Treatment Scheduled Orders Name Type Priority Associated Diagnoses Order S chedule VISUAL FIELD EXAM, Ophthalmology Routine Optic neuriti s Ordered: INTERMEDIATE Visual field defect 11/11/19 16 documented as of this encounter Visit Diagnoses Diagnosis Optic neuritis - Primary Optic neuritis, unspecified Visual field defect Visual field defect, unspecified documented in this encounter Eye Exam Visual Acuity (Snellen - Linear) Right eye Left eye Dist sc 20/25 -1 20/60 +2 Dist ph sc 20/40+1 Tonometry (Applanation, 10:26) Right eye Left eye Pressure 16 17 Pupils Pupils Dark Light React APD Right eye PERRL 4 3 Brisk None Left eye PERRL 4 3 Brisk + APD Visual Deshpande Right eye Left eye Full Full Extraocular Movement Right eye Left eye Full, Ortho Full, Ortho Neuro/Psych Oriented x3: Yes Mood/Affect: Normal Dilation Both eyes: 1.0% Mydriacyl, 2.5% Phenylep hrine @ 10:41 Slit Lamp Exam Right eye Left eye Lids/Lashes Normal Normal Conjunctiva/Sclera White and quiet White and quiet Cornea Clear Clear Anterior Chamber Deep and quiet Deep and quiet Iris Round and reactive Round and reactive Lens Clear Clear Care Teams Tire Buster Relationship Specialty Start Date End Date Jaime Guadarrama PA PCP - General 11/06/15 [address] [place] [address] documented as of this encounter
--- OUTSIDE RECORDS SUMMARY | 2022-04-08 16:00 | XMS_ITS | Encounter Summary ---
:1985 Author Organization [facility] Address [address] [place] [address] Care Team Providers Name Role Phone Jaime Guadarrama Primary Care Provider Encounter Details Date Type Department Care Team Description 05/10/2016 Hospital Encounter [facility] - Javier Villalobos [place] PA 1 [facility] [address] [place] [address] [facility] [phone] [place]OM[place] [phone] (Wo rk) Social History Tobacco Use Types [...] as of this encounter Discharge Diagnoses Diagnosis N76.0 Acute vaginitis-N76.0[ICD-10-CM] documented in this encounter Medications at Time [...] on filedocumented in this encounter Care Teams Nail Technician Teacher Relationship Specialty Start Date End Date Jaime Guadarrama PA PCP - General 11/06/[address] [place] [id number] documented as of this encounter
--- OUTSIDE RECORDS SUMMARY | 2022-04-08 16:00 | XMS_ITS | Encounter Summary ---
:1985 Author Organization [facility] Address [address] [place] [address] Care Team Providers Name Role Phone Jaime Guadarrama Primary Care Provider Encounter Details Date Type Department Care Team Description 11/11/2015 Orders Only [facility] Kamari Gillespie Opti c neuritis Ophthalmology - Avila MCINTOSH (Primary Dx) [place] [address] [place] [address] [facility] [address] [place] [address] (Wo rk) Social History Tobacco [...] Progress Notes Kamari Gillespie MD - 11/11/2015 1214 EST No chief complaint on file. The patient is here for follow up of several separate and distinct issues including 1. Optic neuritis ANTI NUCLEAR ANTIBODY C REACTIVE PROTEIN CREATININE FOLATE BUN VITAMIN B12 HEMAGRAM SED. RATE:WESTERGREN ANGIOTENSIN CONVERTING ENZYME (SB) LYME AB SYPHILIS SEROLOGY RHEUMATOID FACTOR SSA ANTIBODIES BY PATRICK SSB ANTIBODIES BY PATRICK HEMAGRAM AND DIFFERENTIAL METHYLMALONIC ACID PROTEIN S ACTIVITY PROTEIN S ANTIGEN PROTEIN C ACTIVITY PROTEIN C ANTIGEN HOMOCYSTEINE MR ORBITS HPI Location: Pain: Quality: Severity: Duration: Timing: Lasts: Context: Modifying factors: Associated Signs & Symptoms: Visual Fluctuations: Attestation: Not recorded Impression/Plan: 1. Optic neuritis ANTI NUCLEAR ANTIBODY C REACTIVE PROTEIN CREATININE FOLATE BUN VITAMIN B12 HEMAGRAM SED. RATE:WESTERGREN ANGIOTENSIN CONVERTING ENZYME (SB) LYME AB SYPHILIS SEROLOGY RHEUMATOID FACTOR SSA ANTIBODIES BY PATRICK SSB ANTIBODIES BY PATRICK HEMAGRAM AND DIFFERENTIAL METHYLMALONIC ACID PROTEIN S ACTIVITY PROTEIN S ANTIGEN PROTEIN C ACTIVITY PROTEIN C ANTIGEN HOMOCYSTEINE MR ORBITS Comment: I, Dr. Gillespie, personally performed my own HPI and I have reviewed the tech's ROS as well. Parts of this note have been dictated. Kamari Gillespie MD documented in this encounter Plan of Treatment Not on filedocumented as of this encounter Procedures Procedure Name Priority Date/Time Associated Diagnosis Comme nts MR ORBITS W/WO 11/15/2015 18:38 Results f or this CONTRAST EST procedure are i n the results section. documented in this encounter Results MR NEURO ORBITS W/O & W CONTRAST (11/15/2015 18:38 EST) Anatomical Region Laterality Modality Other Specimen Narrative [facility] - 11/16/2015 14:19 EST MRI orbits without contrast. History: ??Optic neuritis Technique: T1 and T2 axial and coronal a s well as coronal T2 fat-saturated were obtained before contr ast. Findings: The globes are normal in shape and size. The lens are well located. The lacrimal glands are normal bilaterally. The extraocular muscles are normal in si gnal intensity and morphology. The operative-sheath complex es are normal. The intraorbital vasculature is normal. The intra-and extraconal fat are clear. The visualized portions of the brain par enchyma are normal. There is lobular mucosal thickening with in the maxillary sinuses. Conclusion: Normal orbits. Procedure Note Jose Juan Garcia DO - 11/16/2015 MRI orbits without contrast. History: Optic neuritis Technique: T1 and T2 axial and coronal a s well as coronal T2 fat-saturated were obtained before contr ast. Findings: The globes are normal in shape and size. The lens are well located. The lacrimal glands are normal bilaterally. The extraocular muscles are normal in si gnal intensity and morphology. The operative-sheath complex es are normal. The intraorbital vasculature is normal. The intra-and extraconal fat are clear. The visualized portions of the brain par enchyma are normal. There is lobular mucosal thickening with in the maxillary sinuses. Conclusion: Normal orbits. Performing Organization Address [facility] Phon e Number [facility] RADIOLOGY [facility]IN [place] HOMOCYSTEINE (11/11/2015 15:18 EST) Homocysteine 8.8 4.5 - 12.4 [facility] Comment: umol/L LABORATORY Reference range may not apply to non-fasting samples. SERVICES It is not recommended that EDTA and serum from the same patient be used interchangeably. Serum concentrations have been observed to be up to 10% higher than EDTA plasma. ??Reference range may not apply to serum results. Specimen Blood specimen (specimen) - Blood Performing Organization Address [facility]/[employer] e Number [facility] LABORATORY [address] [place] [address] SERVICES PROTEIN C ANTIGEN (11/11/2015 15:18 EST) Protein C Antigen 83 70 - 150 % [facility] Comment: LABORATORY SERVICES Performed or Referred by: [facility] Labs: [facility], [address] [place] [id number], Lab Dir: Priyank agustin III, MD Specimen Blood specimen (specimen) - Blood Performing Organization Address [facility]/[employer] e Number [facility] LABORATORY [address] [place] [address] SERVICES PROTEIN C ACTIVITY (11/11/2015 15:18 EST) Protein C Clot 138 71 - 199 % [facility] Comment: LABORATORY SERVICES a. ??Acquired Protein C [...] specimen (specimen) - Blood Performing Organization Address [facility] Phon e Number [facility] LABORATORY [address] [place] [address] SERVICES PROTEIN S ANTIGEN (11/11/2015 15:18 EST) Protein S Ag, Free 77 50 - 160 % [facility] Comment: LABORATORY SERVICES Performed or Referred by: [facility] Labs: [facility], [facility] [place] [address], Lab Dir: Priyank agustin III, MD Specimen Blood specimen (specimen) - Blood Performing Organization Address [facility] Phon e Number [facility] LABORATORY [address] [place] [address] SERVICES PROTEIN S ACTIVITY (11/11/2015 15:18 EST) Protein S 77 64 - 147 % [facility] Activity Comment: LABORATORY SERVICES a. ??Acquired Protein [...] specimen (specimen) - Blood Performing Organization Address [facility] Phon e Number [facility] LABORATORY [address] [place] [address] SERVICES METHYLMALONIC ACID (11/11/2015 15:18 EST) Methylmalonic Acid 0.19 <=0.40 [facility] Comment: nmol/mL LABORATORY Performed or Referred by: [facility] Labs: [facility] [place], [address] [place] [address], Lab Dir: Priyank agustin III, MD Specimen Blood specimen (specimen) - Blood Performing Organization Address City/State/ZIP Code Phon e Number [facility] LABORATORY [address] [place] [address] SERVICES (ABNORMAL) HEMAGRAM AND DIFFERENTIAL (11/11/2015 15:18 EST) WBC 4.16 4.0 - 12.4 [facility] K/cm LABORATORY SERVICES RBC 4.42 3.86 - 5.04 [facility] M/[facility] LABORATORY SERVICES Hemoglobin 13.2 11.6 - 15.2 [facility] gm/dl LABORATORY SERVICES HCT 39.5 34.9 - 44.4 % [facility] LABORATORY SERVICES MCV 89 81 - 98 fl [facility] LABORATORY SERVICES MCH 29.9 26.7 - 33.3 [facility] pg LABORATORY SERVICES MCHC 33.4 32.1 - 35.9 [facility] gm/dl LABORATORY SERVICES RDW-CV 12.1 11.7 - 14.6 % [facility] LABORATORY SERVICES RDW-SD 39.5 37.6 - 50.3 [facility] fl LABORATORY SERVICES PLT 197Comment: Note 141 - 377 [facility] new reference K/[facility] LABORATORY range effective SERVICES 10/10/15 MPV 9.8Comment: Note 9.5 - 12.7 fl [facility] new reference LABORATORY range effective SERVICES 10/10/15 Neutrophils 60.9 % [facility] LABORATORY SERVICES Lymphocytes 22.8 % [facility] LABORATORY SERVICES Monocytes 14.9 % [facility] LABORATORY SERVICES Eosinophils 1.0 % [facility] LABORATORY SERVICES Basophils 0.2 % [facility] LABORATORY SERVICES Immature Grans 0.2 % [facility] LABORATORY SERVICES ABS Neutrophils 2.53 2.20 - 8.85 [facility] K/[facility] LABORATORY SERVICES ABS Lymphs 0.95 (L) 1.09 - 3.30 [facility] K/[facility] LABORATORY SERVICES ABS Monocytes 0.62 0.1 - 0.8 [facility] K/[facility] LABORATORY SERVICES ABS Eosinophils 0.04 0.03 - 0.61 [facility] K/[facility] LABORATORY SERVICES ABS Basophils 0.01 0.01 - 0.11 [facility] K/[facility] LABORATORY SERVICES ABS Immature Grans 0.01 0 - 0.06 [facility] K/[facility] LABORATORY SERVICES Type of Diff: Automated [facility] LABORATORY SERVICES Specimen Blood specimen (specimen) - Blood Performing Organization Address [facility] Phon e Number [facility] LABORATORY [address] [place] [address] SERVICES SSB ANTIBODIES BY PATRICK (11/11/2015 15:18 EST) Pathologist Sig nature SSB Antibody 2.5 <20 Units [facility] Comment: LABORATORY SERVICES Negative: <20 Units Weak Positive: 20 - 29 Units Moderate Positive: 40 - 80 Units Strong Positive: >80 Units The following results were obtained with the [employer] MI[employer] NTA SS-B PATRICK. SS-B values obtained with different manufacturers'assay met hods may not be used interchangeably. The magnitude of the re ported IgG levels cannot be correlated to an endpoint titer. Specimen Blood specimen (specimen) - Blood Performing Organization Address [facility] Phon e Number [facility] LABORATORY [address] [place] [address] SERVICES SSA ANTIBODIES BY PATRICK (11/11/2015 15:18 EST) Pathologist Sig nature SSA Antibody 2.2 <20 Units [facility] Comment: LABORATORY SERVICES Negative: <20 Units Weak Positive: 20 - 29 Units Moderate Positive: 40 - 80 Units Strong Positive: >80 Units The following results were obtained with the [employer] MI[employer]LA NTA Lite SS-A PATRICK. SS-A values obtained with different manufacturers' ass ay methods may not be used interchangeably. The magnitude of the reported Ig G levels cannot be correlated to an endpoint titer. Specimen Blood specimen (specimen) - Blood Performing Organization Address City/[facility]/ZIP Code Phon e Number [facility] LABORATORY [address] [place] [address] SERVICES RHEUMATOID FACTOR (11/11/2015 15:18 EST) Pathologist Sig nature Rheumatoid Factor <20 <20 IU/ml [facility] LABO RATORY SERVICES Specimen Blood specimen (specimen) - Blood Performing Organization Address [facility] Phon e Number [facility] LABORATORY [address] [place] [address] SERVICES SYPHILIS SEROLOGY (11/11/2015 15:18 EST) Syphilis Serology NegativeComment: [facility] Reference Range: LABORATORY SERVICES Negative Specimen Blood specimen (specimen) - Blood Performing Organization Address City/[facility]/ZIP Code Phon e Number [facility] LABORATORY [address] [place] [address] SERVICES LYME AB (11/11/2015 15:18 EST) Pathologist Sig nature Lyme AB NegativeComment: [facility] Reference Range: LABORATORY SERVICES Negative Specimen Blood specimen (specimen) - Blood Performing Organization Address [facility]/ZIP Code Phon e Number [facility] LABORATORY [address] [place] [address] SERVICES ANGIOTENSIN CONVERTING ENZYME (SB) (11/11/2015 15:18 EST) Angiotensin 28 8 - 53 U/L [facility] MEDICAL Converting Enzyme Comment: CENTER LABORATORY Performed by: [facility] [place] and, [address] , [facility] [address], Vest Backer: Christine Jackson, Ph.D. Specimen Blood specimen (specimen) - Blood Performing Organization Address [facility]/ZIP [facility] Phon e Number [facility] LABORATORY [address] [place] [address] SERVICES (ABNORMAL) SED. RATE:WESTERGREN (11/11/2015 15:18 EST) Pathologist Sig nature Sed. Rate Westergren 22 (H) 0 - 20 mm/hr [facility] LABORATORY SERVICES Specimen Blood specimen (specimen) - Blood Performing Organization Address [facility]/ZIP Code Phon e Number [facility] LABORATORY [address] [place] [address] SERVICES VITAMIN B12 (11/11/2015 15:18 EST) Pathologist Sig nature Vitamin B-12 451 211 - 911 pg/ml [facility] LABORATORY SERVICES Specimen Blood specimen (specimen) - Blood Performing Organization Address City/[facility]/ZIP Code Phon e Number [facility] LABORATORY [address] [place] [address] SERVICES BUN (11/11/2015 15:18 EST) Pathologist Sig nature BUN 10 10 - 26 mg/dl [facility] LABORATO RY SERVICES Specimen Blood specimen (specimen) - Blood Performing Organization Address [facility]/ZIP Code Phon e Number [facility] LABORATORY [address] [place] [address] SERVICES FOLATE (11/11/2015 15:18 EST) Pathologist Sig nature Folate 15.9 2.8 - 18.0 ng/ml [facility] Comment: LABORATORY SERVICES Deficient: ??Less than 3.4 ng/mL Indeterminate: ??3.4-5.4 ng/mL Normal: ??Greater than 5.4 ng/mL Specimen Blood specimen (specimen) - Blood Performing Organization Address [facility]/ZIP [facility] Phon e Number [facility] LABORATORY [address] [place] [address] SERVICES CREATININE (11/11/2015 15:18 EST) Creatinine 0.57 0.52 - 1.04 [facility] mg/dl LABORATORY SERVICES GFR, Calculated 127 >60 [facility] Comment: ml/min/1.73m2 LABORATORY eGFR calculated using CKD-EPI equation for SERVICES non Americans. Multiply eGFR by 1.16 for Americans. Specimen Blood specimen (specimen) - Blood Performing Organization Address [facility] Phon e Number [facility] LABORATORY [address] [place] [address] SERVICES (ABNORMAL) C REACTIVE PROTEIN (11/11/2015 15:18 EST) C Reactive Protein 14.9 (H) <10.0 mg/L [facility] Comment: LABORATORY SERVICES Note units change to mg/L. Values will be 10 fold higher than with previous units of mg/dl. Specimen Blood specimen (specimen) - Blood Performing Organization Address [facility] Phon e Number [facility] LABORATORY [address] [place] [address] SERVICES ANTI NUCLEAR ANTIBODY (11/11/2015 15:18 EST) Anti Nuclear Ab Positive at 40 0 - 40 Dils [facility] dils, titer to LABORATORY SERVICES follow. Specimen Blood specimen (specimen) - Blood Performing Organization Address [facility] Phon e Number [facility] LABORATORY [address] [place] [address] SERVICES documented in this encounter Visit Diagnoses Diagnosis Optic neuritis - Primary Optic neuritis, unspecified documented in this encounter Orders Lab Orders Without Results Count Last Ordered Date Fir st Ordered Date HEMAGRAM 1 11/11/2015 documented in this encounter Care Teams Ed Tech Relationship Specialty Start Date End Date Jaime Guadarrama PA PCP - General 11/06/15 [address] [place] [address] documented as of this encounter
--- OUTSIDE RECORDS SUMMARY | 2022-04-08 16:00 | XMS_ITS | Encounter Summary ---
:1985 Author Organization [facility] Address [address] [place] [address] Care Team Providers Name Role Phone Jaime Guadarrama Primary Care Provider Encounter Details Date Type Department Care Team Description 11/15/2015 Hospital Encounter [facility] - Kamari Gillespie MD [address] [address] [address], [place] [address] (Wo rk) Social History Tobacco [...] or Self Snf documented in this encounter Plan of Treatment Not on filedocumented as of this encounter Visit Diagnoses Not on filedocumented in this encounter Care Teams Glass Polisher Relationship Specialty Start Date End Date Jaime Guadarrama PA PCP - General 11/06/15 [address] [place] [address] documented as of this encounter
--- OUTSIDE RECORDS SUMMARY | 2022-04-08 16:00 | XMS_ITS | Encounter Summary ---
:1985 Author Organization [facility] Address [address] [place] [address] Care Team Providers Name Role Phone Jaime Guadarrama Primary Care Provider Reason for Referral (Routine) - Closed Specialty Diagnoses / Procedures Referred By Contact Refer red To Contact Diagnoses Photopsia Enlarged blind spot, left Kamari Gillespie MD Procedures OCT (OPHTHALMIC DIGITAL IMAGING, POSTERIOR SEGMENT) [address] [place] [phone] Referral ID Status Reason Start Date Expiration Date Visits Requ ested Visits Authorized [id number] Closed 05/12/2016 1 1 Reason for Visit Reason Comments Eye Problem Patient here for 2 month f/u for photopsias right eye and big blind spot syndrome. Flashin g right eye has diminished. No new floaters . Vision remains th e same both eyes. no pain Medication Management No drops Encounter Details Date Type Department Care Team Description 05/10/2016 Office Visit [facility] Pedro Gillespie MD Ophthalmology - [address], [address] [place] [address] [phone] (Wo rk) Social History Tobacco Use [...] encounter Progress Notes Kamari Gillespie MD - 05/10/2016 0928 EDT Chief Complaint Patient presents with ??? Eye Problem Patient here for 2 month f/u for photopsias right eye and big blind spot syndrome. Flashing right eye has diminished. No new floaters . Vision remains the same both eyes. no pain ??? Medication Management No drops The patient is here for follow up of several separate and distinct issues including HPI Location: Right eye Pain: 0 - No pain Quality: Severity: Mild Duration: Months Timing: Constant Lasts: Continuous Context: Patient here for 2 month f/u for photopsias right eye and big blind spot syndrome. Flashingright eye has diminished. No new floaters . Vision remains the same both eyes. no pain Modifying factors: no drops Associated Signs & Symptoms: no pain Visual Fluctuations: Flashes (diminished) Attestation: Base Eye Exam Visual Acuity (Snellen - Linear) Right Left Dist sc 20/30 20/40 Tonometry (Applanation, 8:58) Right Left Pressure 13 15 Pupils Pupils Dark Light React APD Right PERRL 4 3 Brisk None Left PERRL 4 3 Brisk None Neuro/Psych Oriented x3: Yes Mood/Affect: Normal Dilation Both eyes: 1.0% Mydriacyl, 2.5% Phenylephrine @ 9:01 Slit Lamp and Fundus Exam External Exam Right Left External Normal Slit Lamp Exam Right Left Lids/Lashes Normal Normal Conjunctiva/Sclera White and quiet White and quiet Cornea Clear Clear Anterior Chamber Deep and quiet; no cells Deep and quiet; no cells Iris round and reactive Round and reactive Lens Clear Clear Vitreous no vitreous cells no vitreous cells Fundus Exam Right Left C/D Ratio 0.3 0.3 Macula looks good looks good Vessels Normal Normal Periphery Normal Normal OCT REPORT Indications: RE Findings: Right Eye Left Eye No edema No edema Original test to be found in patients shadow chart Impression: 1. Photopsia 2. Enlarged blind spot, left Assess/Plan: Photopsia's right eye- no longer an issue Retina flat Looks good No vitreous cells. Large blind spot left eye Stable F/U with Dr Hall for VF to document stability. F/U with Dr Hall in 3-4 mos Repeat VF. See me PRN. I, Dr. 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, left documented in this encounter Eye Exam Visual Acuity (Snellen - Linear) Right eye Left eye Dist sc 20/30 20/40 Tonometry (Applanation, 8:58) Right eye Left eye Pressure 13 15 Pupils Pupils Dark Light React APD Right eye PERRL 4 3 Brisk None Left eye PERRL 4 3 Brisk None Neuro/Psych Oriented x3: Yes Mood/Affect: Normal Dilation Both eyes: 1.0% Mydriacyl, 2.5% Phenylep hrine @ 9:01 External Exam Right eye Left eye External Normal Slit Lamp Exam Right eye Left eye Lids/Lashes Normal Normal Conjunctiva/Sclera White and quiet White and quiet Cornea Clear Clear Anterior Chamber Deep and quiet; no cells Deep and quiet; no cells Iris round and reactive Round and reactive Lens Clear Clear Vitreous no vitreous cells no vitreous cells Fundus Exam Right eye Left eye C/D Ratio 0.3 0.3 Macula looks good looks good Vessels Normal Normal Periphery Normal Normal Care Teams Card Grinder Helper Relationship Specialty Start Date End Date Jaime Guadarrama PA PCP - General 11/06/[address] [place] [id number] documented as of this encounter
--- OUTSIDE RECORDS SUMMARY | 2022-04-08 16:00 | XMS_ITS | Encounter Summary ---
:1985 Author Organization [facility] Address [address] [place] [address] Care Team Providers Name Role Phone Jaime Guadarrama Primary Care Provider Reason for Visit Reason Comments Rash pt states developed body guillermo h suddenly this afternoon took benadrly that has since resolved most of the r kiko pt staets is now having itching to mid back and neck Encounter Details Date Type Department Care Team Description 08/23/2021 Hospital Encounter [facility] El Kwan Al lergic reaction due Urgent Care - Yolie MCINTOSH to correct medicinal [address] substance properly [address] [facility] [address] (Primary [place], [place] [address] Dx) [address] [address] [place] [address] Social History Tobacco Use Types Packs/Day Years [...] EST Inhaled Oxygen Concentration - - Weight - [...] documented as of this encounter Discharge Instructions AttachmentsThe following attachments cannot be sent through Care Everywhere. Allergic Reaction (Occitan)Drug Allergy (Occitan)documented in this encounter Medications at Time of Discharge Medication Sig Dispensed Refills Start Date End Date Multivitamins with Take 1 Tab by mouth 0 Minerals Tab daily. Reported on 09/19/2016 norgestimate-ethinyl Take 1 Tab by mouth 0 estradiol (ORTHO daily. TRI-CYCLEN, TRI-SPRINTEC) 0.18/0.215/0.25 mg-35 mcg (28) tablet documented as of this encounter Discharge Disposition Disposition Code Departure Means Destination Home or Self Long-Term documented in this encounter ED Notes El Kwan MD - 08/23/2021 8208 EST DOS: 08/23/2021 Chief Complaint: Chief Complaint Patient presents with ??? Rash pt states developed body rash suddenly this afternoon took benadrly that has since resolved most ofthe rash pt staets is now having itching to mid back and neck Assessment and Plan Allergic reaction, possibly to Covid booster. No sign of anaphylaxis or other serious systemic reaction, symptoms improved with Benadryl. Continue Benadryl as needed for next 2 to 3 days and recheck if not better in 3 days or for any serious symptoms. Final diagnoses: Allergic reaction due to correct medicinal substance properly administered Procedures No results found for this visit on 08/23/21. Radiology orders: None Consult orders: None Imaging Results None No orders to display The patient is a 36 y.o. female who presents today with Rash (pt states developed body rash suddenlythis afternoon took benadrly that has since resolved most of the rash pt staets is now having itching to mid back and neck ) Patient was baking apply this evening when suddenly her face felt hot and she developed a slightly itchy rash on her torso and upper extremities. It was not associated with any swelling of the lips or tongue, shortness of breath, dizziness or GI symptoms. She had a Covid booster about 2 weeks ago and had had a somewhat similar but lesser reaction with one of her earlier Covid vaccinations. She took some Benadryl and the rash started to improve in about an hour and now seems to be completely gone. She denies any other new ingestions or contacts. She has occasionally had hives when under stress but no other significant allergy history and there is no family history of serious allergic reactions. Review of Systems Constitutional: Negative for fever. Respiratory: Negative for shortness of breath, wheezing and stridor. Neurological: Negative for dizziness. No current facility-administered medications for this encounter. Current Outpatient Medications Medication Sig Dispense Refill ??? Multivitamins with Minerals Tab Take 1 Tab by mouth daily. Reported on 09/19/2016 (Patient not taking: Reported on 08/23/2021) ??? norgestimate-ethinyl estradiol (ORTHO TRI-CYCLEN, TRI-SPRINTEC) 0.18/0.215/0.25 mg-35 mcg (28) tablet Take 1 Tab by mouth daily. (Patient not taking: Reported on 08/23/2021) No Known Allergies Patient Active Problem List [...] Neg Hx ??? Cancer Neg Hx BP (!) 145/93 Pulse 57 Temp 98.1 ??F (36.7 ??C) Resp 16 SpO2 99% Physical Exam Constitutional: General: She is not in acute distress. Appearance: She is not ill-appearing. Pulmonary: Breath sounds: Normal breath sounds. No stridor. No wheezing. Skin: General: Skin is warm and dry. Findings: No rash. Neurological: Mental Status: She is oriented to person, place, and time. Psychiatric: Mood and Affect: Mood normal. Thought Content: Thought content normal. Judgment: Judgment normal. PCP: Jaime Guadarrama No supervision required. Urgent Care Course A medical screening exam was performed. DISPOSITION: Discharged The patient's pain was managed to an adequate level weighing risk vs. benefit of further medications. Upon departure from [facility], the patient's pain was 0 on a zero to ten scale. Any further pain treatment will be at the discretion of the provider following up with the patient based on their clinical assessment . Condition at departure from the [facility] : Improved MDM 08/23/2021 17:46 Andra De La Cruz RN - 08/23/2021 1701 EST Pt states rash appeared suddenly around 2pm today. Pt took benadryl 25mg, and rash has improved slightly. Pt denies any exposure to a new substance that she is aware of. When rash appeared, pt was makimg a pie and rash appeared on face, and upper body, bilat upper extremities. ANDRA MONTES RN 08/23/21 17:03 Terell Clark RN - 08/23/2021 1620 EST Pt states is covid vaccinated Denies testing in last 2 weeks covid screen negative documented in this encounter Plan of Treatment Not on filedocumented as of this encounter Visit Diagnoses Diagnosis Allergic reaction due to correct medicin al substance properly administered - Primary Other drug allergy documented in this encounter Care Teams Electrical Power Station Technician Relationship Specialty Start Date End Date Jaime Guadarrama PA PCP - General 11/06/15 [address] [place] [address] documented as of this encounter
--- OUTSIDE RECORDS SUMMARY | 2022-04-08 16:00 | XMS_ITS | Encounter Summary ---
:1985 Author Organization [facility] Address [address] [place] [address] Care Team Providers Name Role Phone Jaime Guadarrama Primary Care Provider Reason for Visit Reason Comments Eye Problem Pt presents to the ED with c omplaints of a headache with 'flashes in her right eyelasting a few secon ds 4/6 times today. Pt denies other symptoms. pt took ibuprofen at 1900 Encounter Details Date Type Department Care Team Description 03/04/2016 Emergency [facility] Shahrzad Seo MD [address] [place], [place] [id number] Flashing lights Emergency Department EmergencyMegan MD (Primary Dx) - Main [place] [address] [place], [place] [id number] Social History Tobacco Use Types Packs/Day Years Used Date Never Smoker Smokeless Tobacco: Never Used Alcohol Use Standard Drinks/Week Comments Yes 3 (1 standard drink = 0.6 oz pure alcoho l) Sex Assigned at Date Recorded Not on file documented as of this encounter Last Filed Vital Signs Vital Sign Reading Time Taken Comments Blood Pressure 110/74 03/04/20162045 EDT Pulse 67 03/04/20162045 EDT Temperature 36.7 ??C (98.1 ??F) 03/04/20162045 EDT Respiratory Rate 20 03/04/20162045 EDT Oxygen Saturation 99% 03/04/20162045 EDT Inhaled Oxygen Concentration - - Weight 52.2 kg (115 lb) 03/04/20162045 EDT Height 152.4 cm (5') 03/04/20162045 EDT Body Mass Index 22.46 03/04/20166 EDT documented in this encounter Functional Status [...] documented as of this encounter Discharge Instructions InstructionsTraChad braxton MD - 03/04/2016 Return for deep eye pain or decreased visual acuity. Follow-up with your information security risk analyst tomorrow. documented in this encounter Medications at [...] Departure Means Destination Home or Self Care Car Home documented in this encounter ED Notes Chad Seo MD - 03/04/20162107 EDT DOS: 03/04/2016 Chief Complaint Patient presents with ??? Eye Problem Pt presents to the ED with complaints of a headache with 'flashes in her right eyelasting a few seconds 4/6 times today. Pt denies other symptoms. pt took ibuprofen at 1900 HPI The patient is a 30 y.o. female who presents today with Eye Problem HPI Comments: I, Sarah Salmon, am scribing for Chad Seo MD while he/she is personally performing the service. Sarah Salmon 03/04/2016 21:09 Rylie Kearns is a 30 y.o. female with a history of left visual field deficits and multiple episodes of flash orders for which she was evaluated here and at opthalmology in November, with essentially no abnormal findings and also had a normal visual evoked potential, and was evaluated at [facility] in [place] at the end of November where she was diagnosed with enlarged blind spot syndrome, who presents to the ED for right eye flashing in the central, outside corner of her eye since . The patient explains she has never had visual disturbances in her right eye. She describes the flashing as a lightning and has had it occur 5-6 times today. The patient described her left eye flashing as sparkling and glittering and did also have it today. Rylie endorses a constant, mild, generalized headache today that resolved with ibuprofen and has had only had one episode of right eye flashing since ibuprofen, the last being 1.5 hours ago. Last week she did have a localized right frontal headache but no right eye symptoms. She denies migraine or history of migraines, eye pain, nausea, floating dark spot, or other symptoms and states her vision is otherwise at baseline. The history is provided by the patient and medical records. Eye Problem Location: R eye Quality: no pain, lightning bolt flashing in outer right corner. Severity: Mild Onset quality: Sudden Duration: 11 hours Timing: Intermittent Progression: Unchanged Chronicity: New Relieved by: Nothing Worsened by: Nothing tried Ineffective treatments: NSAIDs Associated symptoms: headaches Associated symptoms: no discharge, no nausea and no photophobia Review of Systems Review of Systems Eyes: Positive for visual disturbance. Negative for photophobia, pain and discharge. Gastrointestinal: Negative for nausea. Neurological: Positive for headaches. All other systems reviewed and are negative. The patient's past medical, family and social history was reviewed and updated as needed. No Known Allergies Vital Signs Temp: 36.7 ??C (98.1 ??F) Pulse: 67 Resp: 20 SpO2: 99 % BP: 110/74 mmHg Physical Exam Constitutional: She is oriented to person, place, and time. She appears well- developed and well-nourished. No distress. HENT: Head: Normocephalic and atraumatic. Eyes: Conjunctivae and EOM are normal. Pupils are equal, round, and reactive to light. Right eye exhibits no discharge. Left eye exhibits no discharge. No scleral icterus. Fundus is normal bilaterally Negative MS work-up Neck: Normal range of motion. Neck supple. No tracheal deviation present. Cardiovascular: Normal rate, regular rhythm and normal heart sounds. Exam reveals no gallop and no friction rub. No murmur heard. Pulmonary/Chest: Effort normal and breath sounds normal. No respiratory distress. She has no wheezes. She has no rales. She exhibits no tenderness. Abdominal: Soft. Bowel sounds are normal. She exhibits no distension. There is no tenderness. There is no rebound and no guarding. Musculoskeletal: Normal range of motion. She exhibits no edema or tenderness. Neurological: She is alert and oriented to person, place, and time. Skin: Skin is warm and dry. No rash noted. Psychiatric: She has a normal mood and affect. Nursing note and vitals reviewed. RESULTS Procedures ED COURSE A medical screening exam was performed. The patient had a normal eye exam. Patient discharged home and advised follow-up with opthalmology tomorrow. Prior to discharge my usual and customary return precautions were reviewed with the patient and/or family. This included follow-up instructions and reasons to return to the Emergency Department if condition worsens, does not improve as expected, or other new concerns arise. ASSESSMENT AND PLAN Final diagnoses: Flashing lights DISPOSITION: Discharged The patient's pain was managed to an adequate level weighing risk vs. benefit of further medications. Upon departure from the Emergency Department, the patient's pain was 0 on a zero to ten scale. Condition at departure from the Emergency Department: Good PCP: Jaime Guadarrama [facility] This documentation is recorded by Sarah Salmon acting as Scribe under the direction and presence ofChad Seo MD. Chad Seo MD: I personally performed the services recorded by the scribe in my presence. I confirm the scribe's documentation has been reviewed by me to accurately and completely record my work,treatment, procedures, and medical decision making. 03/04/2016 21:08 No flowsheet data found. documented in this encounter Plan of Treatment Not on filedocumented as of this encounter Visit Diagnoses Diagnosis Flashing lights - Primary Other specified visual disturbances documented in this encounter Care Teams Director Graphics Relationship Specialty Start Date End Date Jaime Guadarrama PA PCP - General 11/06/[address] [place] [address] documented as of this encounter
[2022-04-08 16:01] VITALS: BP 117/80; PULSE 52; RESP 18; TEMP 37; O2SAT 100
--- OUTSIDE RECORDS SUMMARY | 2022-04-08 16:01 | XMS_ITS | Encounter Summary ---
:1985 Author Organization [facility] Address [address] [place] [address] Care Team Providers Name Role Phone Lolis Arias MD Primary Care Provider Reason for Visit Reason Comments Urinary Tract Infection f/u after treatment Encounter Details Date Type Department Care Team Description 03/26/2013 Office Visit [facility] Alma Rosario Uri nary tract Urology - [facility] Simone oliveira PA-C infection, site not [address] [facility] specified (Primary Dx) [place], [place] [id number] Social History Tobacco Use Types Packs/Day Years Used Date Never Smoker Smokeless Tobacco: Never Used Alcohol Use Standard Drinks/Week Comments Not Asked 0 (1 standard drink = 0.6 oz pure alcoho l) Sex Assigned at Date Recorded Not on file documented as of this encounter Progress Notes Alma Rosario, HENRIQUE - 03/26/2013 1520 EDT Urology Outpatient Follow-Up Subjective: Patient ID: Rylie Kearns is an 27 y.o. female CC: Urinary Tract Infection. HPI Comments: Pt with h/o recurrent UTI's, recently underwent 3 month course of antibiotic therapy with good results until last month when she developed urinary frequency, urgency, dysuria, and suprapubic discomfort. Urine culture grew citrobacter and she completed a course of antibiotic therapy with no further symptoms. She denies fever, chills, flank pain, N/V/D, change in bowel habits. Urinary Tract Infection This is a chronic problem. The current episode started more than 1 year ago. The problem has been gradually worsening. The pain is at a severity of 0/10. The patient is experiencing no pain. There has been no fever. She is sexually active. There is no history of pyelonephritis. She has tried antibiotics, increased fluids and home medications for the symptoms. The treatment provided moderate relief. Her past medical history is significant for recurrent UTIs. There is no history of catheterization, kidney stones, a single kidney, urinary stasis or a urological procedure. Patient Active Problem List Diagnoses ??? History of recurrent UTIs Past Medical History Diagnosis Date ??? History of recurrent UTIs 09/11/2012 ??? E. coli UTI No past surgical history on file. No family history on file. Social History Substance Use Topics ??? Smoking status: Never Smoker ??? Smokeless tobacco: Never Used ??? Alcohol Use: Not on file Current Outpatient Prescriptions on File Prior to Visit Medication Sig Dispense Refill ??? norgestimate-ethinyl estradiol (ORTHO TRI-CYCLEN, TRI-SPRINTEC) 0.18/0.215/0.25 mg-35 mcg (28) tablet Take 1 Tab by mouth daily. ??? buPROPion (WELLBUTRIN XL) 150 mg XL tablet Take 150 mg by mouth daily. ??? Multivitamins with Minerals Tab Take 1 Tab by mouth daily. No Known Allergies Review of Systems Constitutional: Negative. HENT: Negative. Eyes: Negative. Respiratory: Negative. Gastrointestinal: Negative. Genitourinary: Negative. Musculoskeletal: Negative. Skin: Negative. Neurological: Negative. Endo/Heme/Allergies: Negative. Psychiatric/Behavioral: Negative. - See HPI Objective: Physical Exam Constitutional: She is oriented to person, place, and time. She appears well- developed and well-nourished. HENT: Head: Normocephalic and atraumatic. Eyes: Conjunctivae normal are normal. Pupils are equal, round, and reactive to light. Neck: Normal range of motion. Neck supple. Cardiovascular: Normal rate and regular rhythm. Pulmonary/Chest: Effort normal and breath sounds normal. Abdominal: Soft. Bowel sounds are normal. Musculoskeletal: Normal range of motion. Neurological: She is alert and oriented to person, place, and time. Skin: Skin is warm and dry. Psychiatric: She has a normal mood and affect. Office Visit on 03/26/2013 Component Date Value Range Status ??? Color 03/26/2013 YELLOW Final ??? Clarity, UA 03/26/2013 Clear Final ??? Glucose 03/26/2013 Neg Neg Final ??? Bilirubin 03/26/2013 Neg Neg Final ??? Ketones 03/26/2013 Neg Neg Final ??? Specific Marion 03/26/2013 1.010 1.001 - 1.035 Final ??? Blood 03/26/2013 Neg Neg Final ??? pH 03/26/2013 7.0 4.6 - 8.0 Final ??? Protein 03/26/2013 Neg Neg Final ??? Urobilinogen 03/26/2013 0.2 0.2 - 1.0 E.U./dl Final ??? Nitrite 03/26/2013 Neg Neg Final ??? Leuk Esterase 03/26/2013 Neg Neg Final ??? Tech ID 03/26/2013 [id number] Final Test performed at [facility] BMP: Lab Results Component Value Date NA 141 07/11/2011 K 4.2 07/11/2011 CL 101 07/11/2011 CO2 30 07/11/2011 BUN 13 07/11/2011 CREATININE 0.64* 07/11/2011 CALCIUM 9.7 07/11/2011 CALCCA 9.7 07/11/2011 LABALBU 4.4 07/11/2011 Assessment / Plan: Pt is a 27 y/o female with recurrent urinary tract infections, previously E. Coli, now with Citrobacter. Pt very discouraged despite maintaining daily bowel regimen, increasing fluid intake, and tryingsupplements. Will plan for further work-up to rule out other causes of recurrent infections with renal US and cystoscopy. Alma Rosario PA-C documented in this encounter Plan of Treatment Not on filedocumented as of this encounter Procedures Procedure Name Priority Date/Time Associated Diagnosis Comme nts POCT URINE Routine 03/26/2013 13:58 Urinary tract Results fo r this DIPSTICK, CLINITEK EDT infection, site not pr ocedure are in specified the results section. BACTERIAL CULTURE, Routine 03/26/2013 13:55 Urinary tract Resu lts for this URINE EDT infection, site not procedur e are in specified the results section. documented in this encounter Results POCT URINE DIPSTICK (03/26/2013 13:58 EDT) Color YELLOW [facility] Clarity, UA Clear [facility] Glucose Neg Neg [facility] Bilirubin Neg Neg [facility] Ketones Neg Neg [facility] Specific Marion 1.010 1.001 - 1.035 [facility] Blood Neg Neg [facility] pH 7.0 4.6 - 8.0 [facility] Protein Neg Neg [facility] Urobilinogen 0.2 0.2 - 1.0 [facility] E.U./dl LAB Nitrite Neg Neg [facility] Leuk Esterase Neg Neg [facility] ironer machine ID [id number]: [facility] Test performed at [facility] Specimen Urine (substance) Performing Organization Address [facility] Phon e Number [facility] [address] [place] [address] SERVICES [facility] [address] [place] [address] BACTERIAL CULTURE, URINE (03/26/2013 13:55 EDT) Specimen Description Urine [facility] Result Less than 10,000 [facility] CFU/ml Gram positive organism Report Status 03/27/2013 Final [facility] Specimen Urine (substance) - Urine Performing Organization Address [facility] Phon e Number [facility] [address] [place] [address] SERVICES [facility] [address] [place] [address] documented in this encounter Visit Diagnoses Diagnosis Urinary tract infection, site not specif ied - Primary documented in this encounter Care Teams Marketing Sales Supervisor Relationship Specialty Start Date End Date Lolis Arias MD PCP - General 07/11/11 04/22/13 [address] [place] [address] documented as of this encounter
--- OUTSIDE RECORDS SUMMARY | 2022-04-08 16:01 | XMS_ITS | Encounter Summary ---
:1985 Author Organization [facility] Address [address] [place] [address] Care Team Providers Name Role Phone Lolis Arias MD Primary Care Provider Encounter Details Date Type Department Care Team Description 04/14/2012 Results Only [facility] Emeterio Hurt PA Laboratory Services - [address] [address] [address] [facility] [place] [address] [phone] Social History Tobacco Use Types Packs/Day Years Used Date Never Assessed Sex Assigned at Date Recorded Not on file documented as of this encounter Plan of Treatment Not on filedocumented as of this encounter Procedures Procedure Name Priority Date/Time Associated Diagnosis Comme nts PAP TEST- RESULT Routine 04/14/2012 0:00 EDT Resu lts for this ONLY procedure are i n the results section. documented in this encounter Results PAP TEST- RESULT ONLY (04/14/2012 0:00 EDT) Pathology Report: CYTOPATHOLOGY REPORT [facility] Reports generated via electronic interface contain jana ginal data; however they are lacking the format of the original re port. Caution should be taken when reading/interpreting unfo rmatted reports. Name: ? HARRISON STEVE ? Accession #: ? [id number] : ? 1985 (Age: 26) ??F ?Collect Date: ? 03/30 Location: ? [facility] ? Receive Date : ? 04/15/2012 Provider: ?CARLOS DUENAS Copy to: ? Specimen/Source: ?Pap Test, En docervix, ThinPrep Imaging System with manual evaluation Last Menstrual Period: ? 04/01/2012 Hormonal/Contraceptive Status: ? Yes ? SPECIMEN ADEQUACY ? Satisfactory for Evaluation - transformation zone component absent GENERAL CATEGORIZATION ? Negative for Intraepithelial Lesion or Malignan cy ? Document reviewed and electronically signed by: ? RADHA Ledesma(ASCP) ? Report Date: ??04/18/2012 13:46 End of Report Specimen Performing Organization Address City/State/ZIP Code Phon e Number [facility] [address] [place] [address] SERVICES [facility] [address] [place] [address] documented in this encounter Visit Diagnoses Not on filedocumented in this encounter Care Teams Sausage Smoker Relationship Specialty Start Date End Date Lolis Arias MD PCP - General 07/11/11 04/22/13 [address] [place], [place] [address] documented as of this encounter
--- OUTSIDE RECORDS SUMMARY | 2022-04-08 16:01 | XMS_ITS | Encounter Summary ---
:1985 Author Organization [facility] Address [address] [place] [address] Care Team Providers Name Role Phone Lolis Arias MD Primary Care Provider None, Provider Primary Care Provider Unavailable Reason for Visit Reason Onset Date Comments Appointment Related 03/04/2013 F[facility] Encounter Details Date Type Department Care Team Description 03/04/2013 Telephone [facility] Alma Rosario, Yris ointment Related Urology - Avila oliveira PA-C (FUR) [address] [place] [address] Social History Tobacco Use Types Packs/Day Years Used Date Never Smoker Alcohol Use Standard Drinks/Week Comments Not Asked 0 (1 standard drink = 0.6 oz pure alcoho l) Sex Assigned at Date Recorded Not on file documented as of this encounter Miscellaneous Notes Telephone Encounter - Julia Reyna - 03/04/2013 1239 EDT Appointment scheduled with Fatemeh Rosario. elephone Encounter - Herrera Penny - 03/04/2013 1151 EDT Please call pt to schedule follow up to [phone] outpatient appt. documented in this encounter Plan of Treatment Not on filedocumented as of this encounter Visit Diagnoses Not on filedocumented in this encounter Care Teams Dress Cutter Relationship Specialty Start Date End Date Lolis Arias MD PCP - General 07/11/11 04/22/13 [address] [place] [address] None, Provider PCP - General 04/23/13 03/13/15 documented as of this encounter
--- OUTSIDE RECORDS SUMMARY | 2022-04-08 16:01 | XMS_ITS | Encounter Summary ---
:1985 Author Organization [facility] Address [address] [place] [address] Care Team Providers Name Role Phone Julia Mcdowell MD Primary Care Provider [phone] Encounter Details Date Type Department Care Team Description 07/26/2015 Results Only [facility]- [facility] Jaime Guadarrama PA [phone] [address] [place], [place] [address] (Wo rk) Social History [...] Date/Time Associated Comments Diagnosis SYPHILIS SEROLOGY Routine 07/26/2015 10:47 Result s for this EDT procedure are i n the results section. CHLAMYDIA/N. Routine 07/26/2015 10:44 Results for this GONORRHOEAE AMPLIFIED EDT proced ure are in RNA, THINPREP the results section. PAP TEST- RESULT ONLY Routine 07/26/2015 0:00 Res ults for this EDT procedure are i n the results section. documented in this encounter Results SYPHILIS SEROLOGY (07/26/2015 10:47 EDT) Syphilis Serology NegativeComment: [facility] Reference Range: LABORATORY SERVICES Negative Specimen Blood Performing Organization Address City/State/ZIP Code Phon e Number [facility] LABORATORY [address] [place] [address] SERVICES CHLAMYDIA/GC AMPLIFIED, THIN PREP (07/26/2015 10:44 EDT) Chlamydia Result No Chlamydia [facility] trachomatis DNA LABORATORY detected by SERVICES rim turning machine operator mediated amplification. GC Result No Neisseria [facility] gonorrhoeae DNA LABORATORY detected by SERVICES rim turning machine operator mediated amplification. Specimen Unknown Performing Organization Address City/State/ZIP Code Phon e Number [facility] [address] [place] [address] SERVICES PAP TEST- RESULT ONLY (07/26/2015 0:00 EDT) Pathology Report: CYTOPATHOLOGY REPORT [facility] LAB[facility]ORY Reports generated via electronic interface contain jana ginal data; SERVICES however they are lacking the format of the original re port. Caution should be taken when reading/interpreting unfo rmatted reports. Name: ? HARRISON STEVE ? Accession #: ? [id number] : ? 1985 (Age: 4 8) ??F ?Collect Date: ? 07/01 Location: ? [facility] ? Receive Date : ? 07/27/2015 Provider: ?JAIME DUENAS Copy to: ? Specimen/Source: ? Pap Test, Cervix, ThinPrep Imaging System with manual evaluation Last Menstrual Period: ? 06/27/2015 Other: ? Additional clinical information: no previous treatment , previous pap neg ? SPECIMEN ADEQUACY ? Satisfactory for Evaluation - transformation zone component present GENERAL CATEGORIZATION ? Negative for Intraepithelial Lesion or Malignan cy ? Document reviewed and electronically signed by: ? RADHA Ledesma(ASCP) ? Report Date: ??07/29/2015 12:33 End of Report Specimen Performing Organization Address City/State/ZIP Code Phon e Number [facility] [address] [place] [address] SERVICES documented in this encounter Visit Diagnoses Not on filedocumented in this encounter Care Teams Gun Perforator Loader Relationship Specialty Start Date End Date Julia Mcdowell MD PCP - General 03/14/15 documented as of this encounter
--- OUTSIDE RECORDS SUMMARY | 2022-04-08 16:01 | XMS_ITS | Encounter Summary ---
:[address] [facility] Address [address] [place] [address] Care Team Providers Name Role Phone Lolis Arias MD Primary Care Provider Encounter Details Date Type Department Care Team Description 04/09/2012 Results Only [facility]- Cassandra Melo NP [phone] [address] [place] [phone] (Wo rk) Social History Tobacco Use Types Packs/Day Years Used Date Never Assessed Sex Assigned at Date Recorded Not on file documented as of this encounter Plan of Treatment Not on filedocumented as of this encounter Procedures Procedure Name Priority Date/Time Associated Diagnosis Comme nts BACTERIAL CULTURE, Routine 04/09/2012 11:54 Resul ts for this URINE EDT procedure are i n the results section. documented in this encounter Results BACTERIAL CULTURE, URINE (04/09/2012 11:54 EDT) Specimen Description Urine [facility] Result No growth [facility] Report Status 04/11/2012 Final [facility] Specimen Urine (substance) Performing Organization Address City/State/ZIP Code Phon e Number [facility] [address] [place] [address] SERVICES [facility] [address] [place] [address] documented in this encounter Visit Diagnoses Not on filedocumented in this encounter Care Teams Cone Marker Relationship Specialty Start Date End Date Lolis Arias MD PCP - General 07/11/11 04/22/13 [address] [place] [address] documented as of this encounter
--- OUTSIDE RECORDS SUMMARY | 2022-04-08 16:01 | XMS_ITS | Encounter Summary ---
:1985 Author Organization [facility] Address [address] [place] [address] Care Team Providers Name Role Phone Lolis Arias MD Primary Care Provider Reason for Visit Reason Onset Date Comments Dysuria 03/03/2013 Encounter Details Date Type Department Care Team Description 03/03/2013 Orders Only [facility] Urology Sarah Rosario PA-C - [employer] [address] [place] [address] Social History Tobacco Use Types Packs/Day Years Used Date Never Smoker Alcohol Use Standard Drinks/Week Comments Not Asked 0 (1 standard drink = 0.6 oz pure alcoho l) Sex Assigned at Date Recorded Not on file documented as of this encounter Ordered Prescriptions Prescription Sig Dispensed Refills Start Date End Date ciprofloxacin (CIPRO) 500 Take 1 Tab by 10 Tab 0 013 03/06/2013 mg tablet mouth every 12 hours for 5 days. documented in this encounter Progress Notes Rylie Elizondo RN - 03/03/2013 1652 EDT Patient aware of preliminary results of urine culture and antibiotic treatment, will car pick up driver almas start. Alma Whitaker PA - 03/03/2013 1632 EDT Pt with preliminary URC > 100K gram negative bacilli. Will send Rx for Cipro 500 mg PO BID x 5 days to pharmacy. HENRIQUE Moyer-C documented in this encounter Plan of Treatment Not on filedocumented as of this encounter Visit Diagnoses Not on filedocumented in this encounter Care Teams Granite Polisher Apprentice Relationship Specialty Start Date End Date Lolis Arias MD PCP - General 07/11/11 04/22/13 [address] [place] [address] documented as of this encounter
--- OUTSIDE RECORDS SUMMARY | 2022-04-08 16:01 | XMS_ITS | Encounter Summary ---
:1985 Author Organization [facility] Address [address] [place] [address] Care Team Providers Name Role Phone Lolis Arias MD Primary Care Provider Encounter Details Date Type Department Care Team Description 03/02/2013 Phlebotomy Only [facility] - Degreasing Solution MixerKelvin frequency [facility] Out[facility] [address] [place] [address] Social History Tobacco Use Types Packs/Day Years Used Date Never Smoker Alcohol Use Standard Drinks/Week Comments Not Asked 0 (1 standard drink = 0.6 oz pure alcoho l) Sex Assigned at Date Recorded Not on file documented as of this encounter Plan of Treatment Not on filedocumented as of this encounter Procedures Procedure Name Priority Date/Time Associated Comments Diagnosis URINALYSIS WITH Routine 03/02/2013 13:52 Urinary frequency Res ults for this MICROSCOPIC IF EDT procedure are in POSITIVE the results section. URINE CULTURE IF Routine 03/02/2013 13:52 Urinary frequency Re sults for this POSITIVE EDT procedure are i n the results section. documented in this encounter Results URINE CULTURE IF UA POSITIVE - NON POCT URINALYSIS ONLY (03/02/2013 13:52 EDT) Culture if Culture indicated [facility] Indicated by urinalysis results. Specimen Urine (substance) - Urine Performing Organization Address City/State/ZIP Code Phon e Number [facility] [address] [place] [address] SERVICES [facility] [address] [place] [address] (ABNORMAL) URINALYSIS (03/02/2013 13:52 EDT) Pathologist Sig nature Color, UA Yellow [facility] Clarity, UA Clear [facility] Glucose, UA Neg Neg [facility] Bilirubin, UA Neg Neg [facility] Ketones, UA Neg Neg [facility] Specific [place], <1.005 1.001 - 1.035 [facility] Urine Blood, UA Neg Neg [facility] pH, UA 6.0 4.6 - 8.0 [facility] Protein, UA Neg Neg [facility] Urobilinogen, UA 0.2 0.2 - 1.0 [facility] E.U./dl Nitrite, UA Neg Neg [facility] Leuk Esterase Trace (A) Neg [facility] Specimen Urine (substance) - Urine Performing Organization Address City/State/ZIP Code Phon e Number [facility] [address] [place] [address] SERVICES [facility] [address] [place] [address] documented in this encounter Visit Diagnoses Diagnosis Urinary frequency documented in this encounter Care Teams Land Mobile Radio Technician Relationship Specialty Start Date End Date Lolis Arias MD PCP - General 07/11/11 04/22/13 [address] [place] [address] documented as of this encounter
--- OUTSIDE RECORDS SUMMARY | 2022-04-08 16:01 | XMS_ITS | Encounter Summary ---
:1985 Author Organization [facility] Address [address] [place] [address] Care Team Providers Name Role Phone Julia Mcdowell MD Primary Care Provider [phone] Reason for Visit Reason Onset Date Comments Follow-up 03/15/2015 Encounter Details Date Type Department Care Team Description 03/15/2015 Telephone [facility] Urgent Sergio Parker MD Follow-up Care - Yolie sheppard [address] [place] [address] [place] [address] [phone] Social History Tobacco Use Types Packs/Day Years Used Date Never Smoker Smokeless Tobacco: Never Used Alcohol Use Standard Drinks/Week Comments Yes 1 (1 standard drink = 0.6 oz pure alcoho l) Sex Assigned at Date Recorded Not on file documented as of this encounter Miscellaneous Notes Telephone Encounter - Cassandra Sexton RN - 03/15/2015 1449 EDT Spoke with patient, She is asking what to take for her fever besides Ibuprofen, explained that she can also take Acetaminophen and take it with Ibuprofen or alternate every 6 hours, Ibuprofen and then Tylenol, Patient had no further questions Telephone Encounter - Riya Madrid - 03/15/2015 1142 EDT Reason for Call: Follow-up Summary/Symptoms: Pt has follow up questions about her most recent visit to . Onset and Duration? Appointment Offered? N/A Riya Madrid 03/15/2015 11:42 documented in this encounter Plan of Treatment Not on filedocumented as of this encounter Visit Diagnoses Not on filedocumented in this encounter Care Teams Nutritional Health Coach Relationship Specialty Start Date End Date Julia Mcdowell MD PCP - General 03/14/15 11/05/15 documented as of this encounter
--- OUTSIDE RECORDS SUMMARY | 2022-04-08 16:01 | XMS_ITS | Encounter Summary ---
:1985 Author Organization [facility] Address [address] [place] [address] Care Team Providers Name Role Phone Lolis Arias MD Primary Care Provider Encounter Details Date Type Department Care Team Description 08/27/2012 Results Only [facility] - MD Dannielle [address] [phone] (Wo rk) Social History Tobacco Use Types Packs/Day Years Used Date Never Assessed Sex Assigned at Date Recorded Not on file documented as of this encounter Plan of Treatment Not on filedocumented as of this encounter Procedures Procedure Name Priority Date/Time Associated Diagnosis Comme nts BACTERIAL CULTURE, Routine 08/27/2012 10:30 Resul ts for this URINE EST procedure are i n the results section. documented in this encounter Results BACTERIAL CULTURE, URINE (08/27/2012 10:30 EST) Specimen Description Urine [facility] Result Greater than [facility] 100,000 CFU/ml LAB ESCHERICHIA COLI Report Status 08/29/2012 Final [facility] ORGANISM ESCHERICHIA COLI [facility] Specimen Urine Organism Antibiotic Method Susceptibility Escherichia coli Ampicillin SUSCEPTIBILITY (YANCI) 4: Suscept ible Escherichia coli Cefazolin SUSCEPTIBILITY (YANCI) <=4: Susce ptible Escherichia coli Gentamicin SUSCEPTIBILITY (YANCI) <=1: Susce ptible Escherichia coli Trimethoprim-Sulfamethoxazo SUSCEPTIBILITY (YANCI ) <=20: Susceptible le Escherichia coli Nitrofurantoin SUSCEPTIBILITY (YANCI) <=16: Susc eptible Escherichia coli Tobramycin SUSCEPTIBILITY (YANCI) <=1: Susce ptible Escherichia coli Amikacin SUSCEPTIBILITY (YANCI) <=2: Susce ptible Escherichia coli Ceftriaxone SUSCEPTIBILITY (YANCI) <=1: Susce ptible Escherichia coli Ciprofloxacin SUSCEPTIBILITY (YANCI) <=0.25: Birch sceptible Escherichia coli Meropenem SUSCEPTIBILITY (YANCI) <=0.25: Birch sceptible Comment: Greater than 100,000 CFU/ml ESC HERICHIA COLI Performing Organization Address City/State/ZIP Code Phon e Number [facility] [address] [place] [address] [facility] [address] [place] [address] documented in this encounter Visit Diagnoses Not on filedocumented in this encounter Care Teams Studio Receptionist Relationship Specialty Start Date End Date Lolis Arias MD PCP - General 07/11/11 04/22/13 [address] [place], [place] [address] documented as of this encounter
--- OUTSIDE RECORDS SUMMARY | 2022-04-08 16:01 | XMS_ITS | Encounter Summary ---
:1985 Author Organization [facility] Address [address] [place] [address] Care Team Providers Name Role Phone Lolis Arias MD Primary Care Provider Encounter Details Date Type Department Care Team Description 03/02/2013 Hospital Encounter [facility] - Johanna Sanz, [place] HENRIQUE-C [address] [place] [address] Social History Tobacco Use Types Packs/Day Years Used Date Never Smoker Alcohol Use Standard Drinks/Week Comments Not Asked 0 (1 standard drink = 0.6 oz pure alcoho l) Sex Assigned at Date Recorded Not on file documented as of this encounter Medications at Time of Discharge Medication Sig Dispensed Refills Start Date End Date Multivitamins with Take 1 Tab by mouth 0 Minerals Tab daily. Reported on 09/19/2016 norgestimate-ethinyl Take 1 Tab by mouth 0 estradiol (ORTHO daily. TRI-CYCLEN, TRI-SPRINTEC) 0.18/0.215/0.25 mg-35 mcg (28) tablet buPROPion (WELLBUTRIN XL) Take 150 mg by mouth 0 03/14/2015 150 mg XL tablet daily. documented as of this encounter Discharge Disposition Disposition Code Departure Means Destination Home or Self Half-Way documented in this encounter Plan of Treatment Not on filedocumented as of this encounter Procedures Procedure Name Priority Date/Time Associated Comments Diagnosis URINE MICROSCOPIC Routine 03/02/2013 13:52 Result s for this EDT procedure are i n the results section. BACTERIAL CULTURE, Routine 03/02/2013 13:51 Resul ts for this URINE EDT procedure are i n the results section. documented in this encounter Results (ABNORMAL) URINE MICROSCOPIC (03/02/2013 13:52 EDT) WBC, UA 5 to 10 0 - 5 /HPF [facility] RBC, UA less than 1 0 - 5 /HPF [facility] Squam Epithel, UA None seen None seen [facility] LAB Renal Epithel, UA None seen None seen [facility] Bacteria, UA Rare (A) None seen [facility] Crystals, UA None seen /HPF [facility] Hyaline Casts, UA None seen /LPF [facility] UA Comment Microscopic results [facility] Comment: LAB are unreliable on urines unrefrig >2hrs or refrig >8hrs. Specimen Performing Organization Address City/State/ZIP Code Phon e Number [facility] [address] [place] [address] SERVICES [facility] [address] [place] [address] BACTERIAL CULTURE, URINE (03/02/2013 13:51 EDT) Specimen Description Urine [facility] Result Greater than [facility] 100,000 CFU/ml LAB CITROBACTER KOSERI (FORMERLY CITROBACTER DIVERSUS) Report Status 03/04/2013 Final [facility] ORGANISM CITROBACTER KOSERI [facility] (FORMERLY [facility]ROBACTER DIVERSUS) Specimen Urine Organism Antibiotic Method Susceptibility Citrobacter koseri Cefazolin SUSCEPTIBILITY (YANCI) <=4 Susc eptible (formerly citrobacter diversus) Citrobacter koseri Gentamicin SUSCEPTIBILITY (YANCI) <=1 Susc eptible (formerly citrobacter diversus) Citrobacter koseri Trimethoprim-Sulfamethox SUSCEPTIBILITY (YANCI) <=20 Susceptible (formerly citrobacter azole diversus) Citrobacter koseri Nitrofurantoin SUSCEPTIBILITY (YANCI) 32 Susce ptible (formerly citrobacter diversus) Citrobacter koseri Tobramycin SUSCEPTIBILITY (YANCI) <=1 Susc eptible (formerly citrobacter diversus) Citrobacter koseri Amikacin SUSCEPTIBILITY (YANCI) <=2 Susc eptible (formerly citrobacter diversus) Citrobacter koseri Ceftriaxone SUSCEPTIBILITY (YANCI) <=1 Susc eptible (formerly citrobacter diversus) Citrobacter koseri Ciprofloxacin SUSCEPTIBILITY (YANCI) <=0.25 S usceptible (formerly citrobacter diversus) Citrobacter koseri Piperacillin Tazobactam SUSCEPTIBILITY (YANCI) <=4 Susceptible (formerly citrobacter diversus) Comment: Greater than 100,000 CFU/ml CIT ROBACTER KOSERI (FORMERLY CITROBACTER DIVERSUS) Performing Organization Address City/State/ZIP Code Phon e Number [facility] [address] [place] [address] SERVICES [facility] [address] [place] [address] documented in this encounter Visit Diagnoses Not on filedocumented in this encounter Care Teams Fire Equipment Inspector Relationship Specialty Start Date End Date Lolis Arias MD PCP - General 07/11/11 04/22/13 [address] [place], [place] [address] documented as of this encounter
--- OUTSIDE RECORDS SUMMARY | 2022-04-08 16:01 | XMS_ITS | Encounter Summary ---
:1985 Author Organization [facility] Address [address] [place] [address] Care Team Providers Name Role Phone Julia Mcdowell MD Primary Care Provider [phone] Reason for Visit Reason Onset Date Comments Pharyngitis 03/16/2015 Encounter Details Date Type Department Care Team Description 03/16/2015 Telephone [facility] Urgent Walk I n, [facility] Pharyngitis Care - Yolie Mckeon [facility] [address] [facility] [address] [place], [place] [address] [place] [address] [phone] Social History Tobacco Use Types Packs/Day Years Used Date Never Smoker Smokeless Tobacco: Never Used Alcohol Use Standard Drinks/Week Comments Yes 1 (1 standard drink = 0.6 oz pure alcoho l) Sex Assigned at Date Recorded Not on file documented as of this encounter Miscellaneous Notes Telephone Encounter - Cassandra Sexton RN - 03/16/2015 1422 EDT Called and spoke to patient, she reports one side of her throat feels much better but the other sideremains painful, denies inability to swallow, states she is drinking fluids, denies fevers or chills, Taking Antibiotics as ordered, patient is concerned she continues to have pain on one side of her throat, I had spoken with patient yesterday about pain control and had suggested she add Acetaminophento her taking Ibuprofen to see if she had better pain control, when asked patient today she said shenever tried the Acetaminophen because she didn't want to go and get any, encouraged patient to try warm salt and water gargles, Try the Tylenol and seek immediate care if she is unable to swallow, has a fever or pain uncontrolled with above measures elephone Encounter - Sherley Camarillo - 03/16/2015 1242 EDT Reason for Call: Pharyngitis Summary/Symptoms: Pt was seen here for a sore throat a few days ago. Since then, she has gotten relief on one side only. One side/tonsil is actually worse and is hurting quite a bit. She would like to speak with a nurse. Onset and Duration? n/a Appointment Offered? No Sherley Camarillo 03/16/2015 12:42 documented in this encounter Plan of Treatment Not on filedocumented as of this encounter Visit Diagnoses Not on filedocumented in this encounter Care Teams Mailroom Manager Relationship Specialty Start Date End Date Julia Mcdowell MD PCP - General 03/14/15 11/05/15 documented as of this encounter
--- OUTSIDE RECORDS SUMMARY | 2022-04-08 16:01 | XMS_ITS | Encounter Summary ---
:1985 Author Organization [facility] Address [address] [place] [address] Care Team Providers Name Role Phone Lolis Arias MD Primary Care Provider None, Provider Primary Care Provider Unavailable Reason for Visit Reason Onset Date Comments Appointment Related 03/02/2013 consult Encounter Details Date Type Department Care Team Description 03/02/2013 Telephone [place] Alma Rosario, Yris ointment Related Urology - Avila oliveira PA-C (consult) [address] [place] [address] Social History Tobacco Use Types Packs/Day Years Used Date Never Smoker Alcohol Use Standard Drinks/Week Comments Not Asked 0 (1 standard drink = 0.6 oz pure alcoho l) Sex Assigned at Date Recorded Not on file documented as of this encounter Miscellaneous Notes Telephone Encounter - Aubrie Espana RN - 03/02/2013 0950 EDT Pt states she is having UTI symptoms - frequency, dysuria. Before making appt with Alma. I recommended that we do a UA and cx elephone Encounter - Herrera Penny - 03/02/2013 0831 EDT Pt called to request appt to see Fatemeh Rosario. Pt. states she feels she is redeveloping UTI. documented in this encounter Plan of Treatment Not on filedocumented as of this encounter Results URINE CULTURE IF UA POSITIVE - NON POCT URINALYSIS ONLY (03/02/2013 13:52 EDT) Culture if Culture indicated [facility] Indicated by urinalysis results. Specimen Urine (substance) - Urine Performing Organization Address [facility] [address] [facility] Phon e Number [facility] [address] [place] [address] SERVICES [facility] [address] [place] [address] (ABNORMAL) URINALYSIS (03/02/2013 13:52 EDT) Pathologist Sig nature Color, UA Yellow [facility] Clarity, UA Clear [facility] Glucose, UA Neg Neg [facility] Bilirubin, UA Neg Neg [facility] Ketones, UA Neg Neg [facility] Specific [place], <1.005 1.001 - 1.035 [facility] [...] - Urine Performing Organization Address [facility] [address]/[facility] Phon e Number [facility] [address] [place] [address] SERVICES [facility] [address] [place] [address] documented in this encounter Visit Diagnoses Diagnosis Urinary frequency - Primary documented in this encounter Care Teams Glory Hole Tender Relationship Specialty Start Date End Date Lolis Arias MD PCP - General 07/11/11 04/22/13 [address] [place] [address] None, Provider PCP - General 04/23/13 03/13/15 documented as of this encounter
--- OUTSIDE RECORDS SUMMARY | 2022-04-08 16:01 | XMS_ITS | Encounter Summary ---
:1985 Author Organization [facility] Address [address] [place] [address] Care Team Providers Name Role Phone Lolis Arias MD Primary Care Provider Encounter Details Date Type Department Care Team Description 04/14/2013 Hospital Encounter [facility] - S Client, Terrence Phillips MD [address] [place] [address] Social History Tobacco Use Types Packs/Day Years [...] Code Departure Means Destination Home or Self [facility] documented in this encounter Plan of Treatment Not on filedocumented as of this encounter Procedures Procedure Name Priority Date/Time Associated Comments Diagnosis CHLAMYDIA/N. Routine 04/14/2013 8:33 Results for this GONORRHOEAE AMPLIFIED EDT proced ure are in RNA the results section. documented in this encounter Results CHLAMYDIA/GC AMPLIFIED (04/14/2013 8:33 EDT) Specimen Urine [facility] Description LAB Chlamydia Result No Chlamydia [facility] trachomatis DNA LAB detected by transportation equipment painter mediated amplification. GC Result No Neisseria [facility] gonorrhoeae DNA LAB detected by transportation equipment painter mediated amplification. Specimen Performing Organization Address City/State/ZIP Code Phon e Number [facility] [address] [place] [address] SERVICES [facility] [address] [place] [address] documented in this encounter Visit Diagnoses Not on filedocumented in this encounter Care Teams Emts Relationship Specialty Start Date End Date Lolis Arias MD PCP - General 07/11/11 04/22/13 [address] [place], [place] [address] documented as of this encounter
--- OUTSIDE RECORDS SUMMARY | 2022-04-08 16:01 | XMS_ITS | Encounter Summary ---
:1985 Author Organization [facility] Address [address] [place] [address] Care Team Providers Name Role Phone Lolis Arias MD Primary Care Provider None, Provider Primary Care Provider Unavailable Encounter Details Date Type Department Care Team Description 04/14/2013 Phlebotomy Only [facility] - Social Worker Health Services, [facility] Outpatient [address] [place] [address] Social History Tobacco Use Types Packs/Day Years [...] on filedocumented in this encounter Care Teams Wearing Apparel Presser Relationship Specialty Start Date End Date Lolis Arias MD PCP - General 07/11/11 04/22/13 [address] [place], [place] [address] None, Provider PCP - General 04/23/13 03/13/15 documented as of this encounter
--- OUTSIDE RECORDS SUMMARY | 2022-04-08 16:01 | XMS_ITS | Encounter Summary ---
:1985 Author Organization [facility] Address [address] [place] [address] Care Team Providers Name Role Phone Lolis Arias MD Primary Care Provider Reason for Visit Reason Onset Date Comments Medication Questions 03/05/2013 Follow-up 03/05/2013 checking Encounter Details Date Type Department Care Team Description 03/05/2013 Telephone [facility] [place] Med icanura Questions ; Urology - Avila oliveira PA-C Follow-up (checking) [address] [place] [address] Social History Tobacco Use Types Packs/Day Years Used Date Never Smoker Alcohol Use Standard Drinks/Week Comments Not Asked 0 (1 standard drink = 0.6 oz pure alcoho l) Sex Assigned at Date Recorded Not on file documented as of this encounter Ordered Prescriptions Prescription Sig Dispensed Refills Start Date End Date sulfamethoxazole-trimethop Take 1 Tab by mouth 5 Tab 0 03/06/2013 03/08/2013 rim (BACTRIM DS) 800-160 2 times daily for 2 mg per tablet days. documented in this encounter Miscellaneous Notes Telephone Encounter - Rylie Elizondo RN - 03/06/2013 1026 EDT Checked in with patient this am and also discussed her tendon concerns with HENRIQUE Moyer. Patient notes no tendon discomfort this am and made aware that [place] Rosario would like to switch her antibiotics to Bactrim DS for the remainder of her antibiotic course to minimize any additional tendon discomfort. Patient agreeable and will curing pickling packer script at pharmacy. elephone Encounter - Jovi, Aubrie, CYNTHIA - 03/05/2013 1703 EDT Pt has just recently got over pain from a tendonitis in her heal. She noticed on the cipro information that it can cause tendonitis. She is concerned because her heal pain was better; she has taken 3 doses of cipro and the she is feeling the heal pain again. I rec. That she take her dose of cipro thisevening and call in the morning to let us know how she was feeling and we would discuss with Sunil Smithectronically signed by Aubrie Espana RN at 03/05/2013 17:06 EDT Telephone Encounter - Herrera Penny - 03/05/2013 1640 EDT Pt called back to check on her request for information. Please call elephone Encounter - Suzy Aguilera - 03/05/2013 1234 EDT Patient is requesting a call back. Per patient, she has some questions about her cipro prescription that she would like to discuss with a nurse. documented in this encounter Plan of Treatment Not on filedocumented as of this encounter Visit Diagnoses Not on filedocumented in this encounter Discontinued Medications Medication Sig Discontinue Reason Start Date End Date ciprofloxacin (CIPRO) 500 Take 1 Tab by Therapy completed 3 03/06/2013 mg tablet mouth every 12 hours for 5 days. documented as of this encounter Care Teams Formal Wear Rental Clerk Relationship Specialty Start Date End Date Lolis Arias MD PCP - General 07/11/11 04/22/13 [address] [place] [address] documented as of this encounter
--- OUTSIDE RECORDS SUMMARY | 2022-04-08 16:01 | XMS_ITS | Encounter Summary ---
:1985 Author Organization [facility] Address [address] [place] [address] Care Team Providers Name Role Phone Lolis Arias MD Primary Care Provider Reason for Visit Reason Onset Date Comments Orders (Non Pre-visit) 09/08/2012 Encounter Details Date Type Department Care Team Description 09/08/2012 Orders Only [facility] [place] Rosario E, Uri nary tract Urology - Main [place] PA-C infection, site not [address] [facility] specified (Primary Dx) [place] [address] Social History Tobacco Use Types Packs/Day Years Used Date Never Assessed Sex Assigned at Date Recorded Not on file documented as of this encounter Plan of Treatment Not on filedocumented as of this encounter Results BACTERIAL CULTURE, URINE (03/26/2013 13:55 EDT) Specimen Description Urine [facility] Result Less than 10,000 [facility] CFU/ml Gram positive organism Report Status 03/27/2013 Final [facility] Specimen Urine (substance) - Urine Performing Organization Address City/State/ZIP Code Phon e Number [facility] [address] [place] [address] SERVICES [facility] [address] [place] [address] documented in this encounter Visit Diagnoses Diagnosis Urinary tract infection, site not specif ied - Primary documented in this encounter Care Teams Photography Spotter Relationship Specialty Start Date End Date Lolis Arias MD PCP - General 07/11/11 04/22/13 [address] [place], [place] [address] documented as of this encounter
--- OUTSIDE RECORDS SUMMARY | 2022-04-08 16:01 | XMS_ITS | Encounter Summary ---
:1985 Author Organization [facility] Address [address] [place] [address] Care Team Providers Name Role Phone Julia Mcdowell MD Primary Care Provider [phone] Encounter Details Date Type Department Care Team Description 03/18/2015 Hospital Encounter [facility] - S Jluia Mcdowell MD 1 [facility] [address] [place] [address] [facility] [phone] [place] [address] (Wo rk) Social History Tobacco Use Types Packs/Day Years Used Date Never Smoker Smokeless Tobacco: Never Used Alcohol Use Standard Drinks/Week Comments Yes 1 (1 standard drink = 0.6 oz pure alcoho l) Sex Assigned at Date Recorded Not on file documented as of this encounter Discharge Diagnoses Diagnosis 625.9 FEMALE GENITAL SYMPTOMS NOS[ICD-9- CM] documented in this encounter Medications at Time of Discharge Medication Sig Dispensed Refills Start Date End Date Multivitamins with Take 1 Tab by mouth 0 Minerals Tab daily. Reported on 09/19/2016 norgestimate-ethinyl Take 1 Tab by mouth 0 estradiol (ORTHO daily. TRI-CYCLEN, TRI-SPRINTEC) 0.18/0.215/0.25 mg-35 mcg (28) tablet amoxicillin (AMOXIL) 500 Take 1 Cap by mouth 20 Cap 0 03/24/2015 mg capsule 2 times daily for 10 days documented as of this encounter Discharge Disposition Disposition Code Departure Means Destination Home or Self Care documented in this encounter Plan of Treatment Not on filedocumented as of this encounter Visit Diagnoses Not on filedocumented in this encounter Care Teams Grape Pruner Relationship Specialty Start Date End Date Julia Mcdowell MD PCP - General 03/14/15 documented as of this encounter
--- OUTSIDE RECORDS SUMMARY | 2022-04-08 16:01 | XMS_ITS | Encounter Summary ---
:1985 Author Organization [facility] Address [address] [place] [address] Care Team Providers Name Role Phone Lolis Arias MD Primary Care Provider Encounter Details Date Type Department Care Team Description 07/11/2011 Results Only [facility] Lolis Arias MD Laboratory Services - [address] [place] [address] [address] [place] [address] [phone] Social History Tobacco Use Types Packs/Day Years Used Date Never Assessed Sex Assigned at Date Recorded Not on file documented as of this encounter Plan of Treatment Scheduled Orders Name Type Priority Associated Diagnoses Order S chedule COMPREHENSIVE METABOLIC PANEL Lab Routine Ordered: (CMP) 07/11/2011 THYROID CASCADE Lab Routine Ordered: 07/11/2011 1,25 DIHYDROXYCHOLECALCIFEROL Lab Routine Ordered: 07/11/2011 documented as of this encounter Procedures Procedure Name Priority Date/Time Associated Comments Diagnosis THYROID CASCADE Routine 07/11/2011 Results for 14:39 EDT this procedure are in the results section. 1,25 DIHYDROXYCHOLECALCIFEROL Routine 07/11/2011 Results for 14:39 EDT this procedure are in the results section. COMPREHENSIVE METABOLIC PANEL Routine 07/11/2011 Results for (CMP) 14:39 EDT this procedure are in the results section. documented in this encounter Results 1,25 DIHYDROXYCHOLECALCIFEROL (07/11/2011 14:39 EDT) Vitamin D, 1,25 38 18 - 78 pg/mL [facility] Comment: LAB Performed or Referred by: [facility] Dpt of Lab Med a nd Path, [address] [facility], [place] [address], Lab Dir: Priyank benavides III, MD Specimen Performing Organization Address City/[facility]/ZIP Code Phon e Number [facility] [address] [place] [address] SERVICES [facility] [address] [place] [address] THYROID CASCADE (07/11/2011 14:39 EDT) TSH 2.03 0.35 - 5.00 [facility] Comment: uIU/ml TSH cascade is not recommended for patients in which pituitary or hypothalamic disorders are suspected. Specimen Performing Organization Address [facility] Phon e Number [facility] [address] [place] [address] SERVICES [facility] [address] [place] [address] (ABNORMAL) COMPREHENSIVE METABOLIC PANEL (CMP) (07/11/2011 14:39 EDT) Pathologist Sig nature Potassium 4.2 3.5 - 5.0 mEq/L [facility] Sodium 141 136 - 145 mEq/L [facility] Chloride 101 96 - 110 mEq/L [facility] CO2 30 24 - 32 mEq/L [facility] Total Alkaline 59 38 - 126 U/L [facility] Phosphatase Bilirubin, Total <0.5 0.2 - 1.3 mg/dl [facility] AST 29 15 - 46 U/L [facility] ALT 26 9 - 52 U/L [facility] Albumin 4.4 3.4 - 4.9 g/dl [facility] Total Protein 7.6 6.5 - 8.3 g/dl [facility] Creatinine 0.64 (L) 0.7 - 1.5 mg/dl [facility] GFR, Calculated >60 ml/min/1.73m2 [facility] BUN 13 10 - 26 mg/dl [facility] Calcium 9.7 8.5 - 10.5 [facility] mg/dl Calculated Calcium 9.7 8.5 - 10.5 [facility] mg/dl Glucose, Serum 73 70 - 100 mg/dl [facility] Fasting? No [facility] Specimen Performing Organization Address City/[facility]/ZIP Code Phon e Number [facility] [address] [place] [address] SERVICES [facility] [address] [place] [address] documented in this encounter Visit Diagnoses Not on filedocumented in this encounter Care Teams Cushion Filler Relationship Specialty Start Date End Date Lolis Arias MD PCP - General 07/11/11 04/22/13 [address] [place], [place] [address] documented as of this encounter
--- OUTSIDE RECORDS SUMMARY | 2022-04-08 16:01 | XMS_ITS | Encounter Summary ---
:1985 Author Organization [facility] Address [address] [place] [address] Care Team Providers Name Role Phone Lolis Arias MD Primary Care Provider None, Provider Primary Care Provider Unavailable Julia Mcdowell MD Primary Care Provider [phone] Jaime Guadarrama Primary Care Provider Reason for Visit Reason Onset Date Comments Appointment Related 12/26/201201/08 Encounter Details Date Type Department Care Team Description 12/26/2012 Telephone [facility] [place], Yris ointment Related Urology - Avila oliveira PA-C (01/08) [address] [place] [address] Social History Tobacco Use Types Packs/Day Years Used Date Never Smoker Alcohol Use Standard Drinks/Week Comments Not Asked 0 (1 standard drink = 0.6 oz pure alcoho l) Sex Assigned at Date Recorded Not on file documented as of this encounter Miscellaneous Notes Telephone Encounter - Julia Reyna - 12/26/2012 1505 EDT Appt reschedule elephone Encounter - Sonja Phillips - 12/26/2012 1340 EDT The patient is calling to reschedule her appointment on 01/08. documented in this encounter Plan of Treatment Not on filedocumented as of this encounter Visit Diagnoses Not on filedocumented in this encounter Care Teams Inter Com Installer Relationship Specialty Start Date End Date Lolis Arias MD PCP - General 07/11/11 04/22/13 [address] [place], [place] [id number] None, Provider PCP - General 04/23/13 03/13/15 Julia Mcdowell MD PCP - General 03/14/15 11/05/15 Jaime Guadarrama PA PCP - General 11/06/15 [address] [place], [place] [address] documented as of this encounter
--- OUTSIDE RECORDS SUMMARY | 2022-04-08 16:01 | XMS_ITS | Encounter Summary ---
:1985 Author Organization [facility] Address [address] [place] [address] Care Team Providers Name Role Phone Lolis Arias MD Primary Care Provider Reason for Visit Reason Comments Urinary Tract Infection Frequent Encounter Details Date Type Department Care Team Description 09/11/2012 Office Visit [facility] [place] Ros[place] Uri nary tract Urology - [place] PA-C infection, site not [address] [facility] specified (Primary Dx) [place] [address] Social History Tobacco Use Types Packs/Day Years Used Date Never Smoker Alcohol Use Standard Drinks/Week Comments Not Asked 0 (1 standard drink = 0.6 oz pure alcoho l) Sex Assigned at Date Recorded Not on file documented as of this encounter Last Filed Vital Signs Vital Sign Reading Time Taken Comments Blood Pressure 110/64 09/11/2012 1448 EST Pulse 78 09/11/2012 1448 EST Temperature - - Respiratory Rate 16 09/11/2012 1448 EST Oxygen Saturation - - Inhaled Oxygen Concentration - - Weight - - Height - - Body Mass Index - - documented in this encounter Ordered Prescriptions Prescription Sig Dispensed Refills Start Date End Date Nitrofurantoin 50 mg cap Take 50 mg by mouth 30 Tab 3 10/11/2012 at bedtime for 30 days. documented in this encounter Discharge Disposition Disposition Code Departure Means Destination Auto Discharge documented in this encounter Progress Notes [place] Rosario PA - 09/11/2012 1613 EST Urology Outpatient Consultation Subjective: Patient ID: Rylie Kearns is an 27 y.o. female. CC: Urinary Tract Infection. HPI Pt is a pleasant 27 y/o female with recurrent UTI's. Pt states that she has been getting UTI's everyfew months for the past few years. Pt experiences suprapubic pain, dysuria, and urinary frequency/urgency with the infections. Pt denies hematuria, fever, shills, night sweats, N/V/D, flank or abdominal pain at time of UTI's. Pt with no childhood history of UTI's. Pt states that symptoms completely resolve with antibiotic therapy, only to return 1-2 months later. Pt also correlates UTI's around time of sexual intercourse. Pt denies h/o STD's, kidney stones. 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 Pt was most recently treated for UTI ~ 2 weeks ago. All urine cultures grew E. Coli. Patient Active Problem List Diagnoses ??? History of recurrent UTIs Past Medical History Diagnosis Date ??? History of recurrent UTIs 09/11/2012 ??? E. coli UTI No past surgical history on file. No family history on file. Social History Substance Use Topics ??? Smoking status: Never Smoker ??? Smokeless tobacco: Not on file ??? Alcohol Use: Not on file Review of Systems Constitutional: Negative. HENT: Negative. Eyes: Negative. Respiratory: Negative. Cardiovascular: Negative. Gastrointestinal: Negative. Musculoskeletal: Negative. Skin: Negative. Neurological: Negative. Endo/Heme/Allergies: Negative. Psychiatric/Behavioral: Negative. - See HPI Objective: BP 110/64 Pulse 78 Resp 16 Physical Exam Constitutional: She is oriented to person, place, and time. She appears well- developed and well-nourished. HENT: Head: Normocephalic and atraumatic. Eyes: Conjunctivae are normal. Neck: Normal range of motion. Neck supple. Cardiovascular: Normal rate, regular rhythm and normal heart sounds. Pulmonary/Chest: Effort normal and breath sounds normal. Abdominal: Soft. Bowel sounds are normal. Musculoskeletal: Normal range of motion. Neurological: She is alert and oriented to person, place, and time. Skin: Skin is warm and dry. Psychiatric: She has a normal mood and affect. Office Visit on 09/11/2012 Component Date Value Range Status ??? Color 09/11/2012 YELLOW Final ??? Clarity, UA 09/11/2012 Clear Final ??? Glucose 09/11/2012 Neg Neg Final ??? Bilirubin 09/11/2012 Neg Neg Final ??? Ketones 09/11/2012 Neg Neg Final ??? Specific [place] 09/11/2012 1.015 1.001-1.035 Final ??? Blood 09/11/2012 Neg Neg Final ??? pH 09/11/2012 6.5 4.6-8.0 Final ??? Protein 09/11/2012 Neg Neg Final ??? Urobilinogen (E.U./dl) 09/11/2012 0.2 0.2-1.0 Final ??? Nitrite 09/11/2012 Neg Neg Final ??? Leuk Esterase 09/11/2012 Neg Neg Final ??? Tech ID 09/11/2012 [id number] Final Test performed at [facility] BMP: Lab Results Component Value Date NA 141 07/11/2011 K 4.2 07/11/2011 CL 101 07/11/2011 CO2 30 07/11/2011 BUN 13 07/11/2011 CREATININE 0.64* 07/11/2011 CALCIUM 9.7 07/11/2011 CALCCA 9.7 07/11/2011 LABALBU 4.4 07/11/2011 Assessment / Plan: 1. Urinary tract infection, site not specified Pt is a pleasant 27 y/o female with recurrent E. Coli UTI's. Discussed with patient voiding post intercourse, hygiene (wiping front to back), increasing fluid intake, avoiding bladder irritants, etc. Will plan for trial of prophylaxis with Nitrofurantoin 50 mg PO qHS x 3 months for eradication of infec tion. If recurrence, will then proceed to further work-up with cystoscopy and renal US. Advised patient to use condoms or other forms of protection while on antibiotic therapy to prevent unwanted . [place] Rosario PA-C documented in this encounter Plan of Treatment Not on filedocumented as of this encounter Procedures Procedure Name Priority Date/Time Associated Diagnosis Comme nts POCT URINE Routine 09/11/2012 14:57 Urinary tract Results fo r this DIPSTICK, CLINITEK EST infection, site not pr ocedure are in specified the results section. documented in this encounter Results POCT URINE DIPSTICK (09/11/2012 14:57 EST) Color YELLOW [facility] Clarity, UA Clear [facility] Glucose Neg Neg [facility] Bilirubin Neg Neg [facility] Ketones Neg Neg [facility] Specific [place] 1.015 1.001 - 1.035 [facility] Blood Neg Neg [facility] pH 6.5 4.6 - 8.0 [facility] Protein Neg Neg [facility] Urobilinogen 0.2 0.2 - 1.0 [facility] E.U./dl LAB Nitrite Neg Neg [facility] Leuk Esterase Neg Neg [facility] diamond setter apprentice ID [id number]: [facility] Test performed at [facility] Specimen Urine (substance) Performing Organization Address City/State/ZIP Code Phon e Number [facility] [address] [place] [address] SERVICES [facility] [address] [place] [address] documented in this encounter Visit Diagnoses Diagnosis Urinary tract infection, site not specif ied - Primary documented in this encounter Historical Medications This list may reflect changes made after this encounter. Medication Sig Dispensed Refills Start Date End Date Multivitamins with Take 1 Tab by mouth 0 Minerals Tab daily. Reported on 09/19/2016 buPROPion (WELLBUTRIN XL) Take 150 mg by mouth 0 03/14/2015 150 mg XL tablet daily. norgestimate-ethinyl Take 1 Tab by mouth 0 01/22/2013 estradiol (ORTHO daily. TRI-CYCLEN LO) 0.18/0.215/0.25 mg-25 mcg tablet added in this encounter Care Teams Front End Mechanic Relationship Specialty Start Date End Date Lolis Arias MD PCP - General 07/11/11 04/22/13 [address] [place] [address] documented as of this encounter
--- OUTSIDE RECORDS SUMMARY | 2022-04-08 16:01 | XMS_ITS | Encounter Summary ---
:1985 Author Organization [facility] Address [address] [place] [address] Care Team Providers Name Role Phone Lolis Arias MD Primary Care Provider Encounter Details Date Type Department Care Team Description 08/01/2012 Results Only [facility] Ross Landry MD Laboratory Services - [address] [facility] [address] [place] [address] [phone] Social History Tobacco Use Types Packs/Day Years Used Date Never Assessed Sex Assigned at Date Recorded Not on file documented as of this encounter Plan of Treatment Not on filedocumented as of this encounter Procedures Procedure Name Priority Date/Time Associated Diagnosis Comme nts BACTERIAL CULTURE, Routine 08/01/2012 14:48 Resul ts for this URINE EDT procedure are i n the results section. documented in this encounter Results BACTERIAL CULTURE, URINE (08/01/2012 14:48 EDT) Specimen Description Urine [facility] Result Greater than [facility] 100,000 CFU/ml LAB ESCHERICHIA COLI Report Status 08/03/2012 Final [facility] ORGANISM ESCHERICHIA COLI [facility] Specimen Urine Organism Antibiotic Method Susceptibility Escherichia coli Ampicillin SUSCEPTIBILITY (YANCI) <=2: Susce ptible Escherichia coli Cefazolin SUSCEPTIBILITY (YANCI) <=4: Susce ptible Escherichia coli Gentamicin SUSCEPTIBILITY (YANCI) <=1: Susce ptible Escherichia coli Trimethoprim-Sulfamethoxazo SUSCEPTIBILITY (YANCI ) <=20: Susceptible le Escherichia coli Nitrofurantoin SUSCEPTIBILITY (YANCI) <=16: Susc eptible Escherichia coli Tobramycin SUSCEPTIBILITY (YANCI) <=1: Susce ptible Escherichia coli Amikacin SUSCEPTIBILITY (YANCI) <=2: Susce ptible Escherichia coli Piperacillin SUSCEPTIBILITY (YANCI) <=4: Susce ptible Escherichia coli Ceftriaxone SUSCEPTIBILITY (YANCI) <=1: Susce ptible Escherichia coli Ciprofloxacin SUSCEPTIBILITY (YANCI) <=0.25: Birch sceptible Escherichia coli Meropenem SUSCEPTIBILITY (YANCI) <=0.25: Birch sceptible Comment: Greater than 100,000 CFU/ml ESC HERICHIA COLI Performing Organization Address City/State/ZIP Code Phon e Number [facility] [address] [place] [address] SERVICES [facility] [address] [place] [address] documented in this encounter Visit Diagnoses Not on filedocumented in this encounter Care Teams Program Services Planner Relationship Specialty Start Date End Date Lolis Arias MD PCP - General 07/11/11 04/22/13 [address] [place], [place] [address] documented as of this encounter
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
[2022-04-08 16:26] LABS: COVID-19 PCR Negative (Negative)
[2022-04-08] MEDS: Acetaminophen 325 MG TAB 650 MG PO (20:37)
[2022-04-08 23:59] VITALS: BP 124/76; PULSE 67; RESP 17; TEMP 36.3; O2SAT 98
[2022-04-09 00:32] LABS: HCT 37.7 % (36.0-46.0)
[2022-04-09 06:51] LABS: HCT 36.1 % (36.0-46.0)
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
== END 2022-04-09 07:40 | disposition home or self-care (01) ==
LOC: ER 15:48 → MS 15:58
PROVIDERS: Admitting Provider Surgery; Emergency Provider Registered Nurse Emergency; PCP Physician Assistant Medical; Visit Provider Surgery
DX: S36.112A Contusion of liver, initial encounter (principal); S80.812A Abrasion, left lower leg, initial encounter; V19.88XA Pedal cyclist (driver) (passenger) injured in other specified transport accidents, initial encounter; Y93.55 Activity, bike riding
CPT/HCPCS: 36415; 74177; 80053; 81025; 83690; 87635; 96360; 96361; 99285; 71260; 81003; 81015; 85014; 85025; G0378; J3490